=== PATIENT | male | born 1950 | race Caucasian/White ===

== ENCOUNTER 2017-07-15 11:27 | Inpatient (IN) | payer OTHER, MEDICAID, MEDICARE ==
[~2017-07-15] VITALS: Ht 165.1 cm; Wt 68.1 kg
[2017-07-15 11:30] VITALS: BP 146/72; PULSE 72; RESP 18; TEMP 98.9; O2SAT 96
[2017-07-15 12:25] LABS: AUTOMATED NEUTROPHIL # 4.3 TH/MM3 (1.8-7.7); BASOPHIL % 0.4 % (0.0-2.0); EOSINOPHIL # 0.3 TH/MM3 (0-0.4); EOSINOPHIL % 4.9 % (0.0-4.0); HEMATOCRIT 32.7 % (39.0-51.0); LYMPH % 18.8 % (9.0-44.0); LYMPHOCYTE # 1.3 TH/MM3 (1.0-4.8); MEAN CELL VOLUME 88.9 FL (80.0-100.0); MEAN CORPUSCULAR HEMOGLOBIN 29.9 PG (27.0-34.0); MEAN CORPUSCULAR HGB CONC 33.7 % (32.0-36.0); MEAN PLATELET VOLUME 9.9 FL (7.0-11.0); MONO % 11.7 % (0.0-8.0); MONOCYTE # 0.8 TH/MM3 (0-0.9); NEUT % 64.2 % (16.0-70.0); PLATELET COUNT 146 TH/MM3 (150-450); RED BLOOD COUNT 3.68 MIL/MM3 (4.50-5.90); RED CELL DISTRIBUTION WIDTH 15.6 % (11.6-17.2); WHITE BLOOD COUNT 6.8 TH/MM3 (4.0-11.0)
[2017-07-15 13:04] LABS: ALBUMIN 3.2 GM/DL (3.4-5.0); ALT (GPT) 25 U/L (12-78); AST (GOT) 20 U/L (15-37); BICARBONATE 35.4 MEQ/L (21.0-32.0); BLOOD UREA NITROGEN 30 MG/DL (7-18); CALCIUM 7.9 MG/DL (8.5-10.1); CHLORIDE 94 MEQ/L (98-107); CREATININE 5.52 MG/DL (0.60-1.30); GLOMERULAR FILTRATION RATE 10 ML/MIN (>89); GLUCOSE,RANDOM 102 MG/DL (74-106); SODIUM (NA) 135 MEQ/L (136-145)
--- NOTE | 2017-07-15 13:08 | RADRPT ---
EXAM DATE/TIME: 07/15/2017 12:50 [place] COMPARISON: No previous studies available for comparison. INDICATIONS : Altered mental status, confusion and hallucinations for one week. RADIATION DOSE: 56.35 CTDIvol (mGy) MEDICAL HISTORY : Cardiovascular disease. SURGICAL HISTORY : None. ENCOUNTER: Initial ACUITY: 1 day PAIN SCALE: 0/10 LOCATION: Bilateral head TECHNIQUE: Multiple contiguous axial images were obtained of the head. Using automated exposure control and adj ustment of the mA and/or kV according to patient size, radiation dose was kept as low as reasonably a chievable to obtain optimal diagnostic quality images. DICOM format image data is available electro nically for review and comparison. FINDINGS: CEREBRUM: The ventricles are normal for age. No evidence of midline shift, mass lesion, hemorrhage or acute in farction. No extra-axial fluid collections are seen. POSTERIOR FOSSA: The cerebellum and brainstem are intact. The 4th ventricle is midline. The cerebellopontine angle i s unremarkable. EXTRACRANIAL: The visualized portion of the orbits is intact. SKULL: The calvaria is intact. No evidence of skull fracture. CONCLUSION: Normal examination for a patient of this age. Dionte Salinas MD on July 15, 2017 at 13:05 Board Certified Radiologist. This report was verified electronically.
[2017-07-15 13:14] LABS: ALKALINE PHOSPHATASE 263 U/L (45-117); TOTAL BILIRUBIN ADULT 1.2 MG/DL (0.2-1.0); TOTAL PROTEIN 7.1 GM/DL (6.4-8.2)
[2017-07-15] MEDS ORDERED: ASPI81TA16 PO (13:18)
[2017-07-15] MEDS ORDERED: ISOS60TA PO (13:18)
[2017-07-15] MEDS ORDERED: MECL-62 PO (13:18)
[2017-07-15] MEDS ORDERED: CINA30 PO (13:18)
[2017-07-15] MEDS ORDERED: LOSA25TA PO (13:18)
[2017-07-15] MEDS ORDERED: LEVO100T5 PO (13:18)
[2017-07-15] MEDS ORDERED: RANE1000 PO (13:18)
[2017-07-15] MEDS ORDERED: OMEP20TA93 PO (13:18)
[2017-07-15] MEDS ORDERED: ALPR.25 PO (13:18)
[2017-07-15] MEDS ORDERED: SEVEL800 PO (13:18)
[2017-07-15] MEDS ORDERED: EZET10 PO (13:18)
[2017-07-15] MEDS ORDERED: ZOLO50TA PO (13:18)
[2017-07-15] MEDS ORDERED: ROSU40 PO (13:18)
[2017-07-15] MEDS ORDERED: CARV12.5 PO (13:18)
--- NOTE | 2017-07-15 14:07 | PD ---
HPI Chief Complaint: Altered Mental Status Time Seen by Provider: 12:01 Travel History International Travel<30 days: No Contact w/Intl Traveler<30days: No Traveled to known affect area: No History of Present Illness HPI 67-year-old male arrives with family members due to altered mental status. The patient may have dementia however the family is unsure. He has been hallucinating. Insomnia is reported. The patient is agitated late at night and the family is unable to sleep because of it location neuropsychiatric. Severity moderate. Duration at least a couple weeks. PFSH Past Medical History Cardiovascular Problems: Yes Dementia: Yes (father) Dialysis: Yes (MWF Hemodialysis Fistula Rt arm) Renal Failure: Yes Thyroid Disease: Yes (hypo) Triglycerides - High: Yes Influenza Vaccination: No Past Surgical History Coronary Artery Bypass Graft: Yes (quad) Social History Alcohol Use: Yes (on occasion) Tobacco Use: No Substance Use: No Allergies-Medications (Allergen,Severity, Reaction): Coded Allergies: No Known Allergies (Unverified , 07/15/17) Reported Meds & Prescriptions Reported Meds & Active Scripts Active Reported Losartan (Losartan Potassium) 25 Mg Tab 25 Mg PO DAILY Coreg (Carvedilol) 12.5 Mg Tab 12.5 Mg PO BID Isosorbide Mononitrate ER (Isosorbide Mononitrate) 60 Mg Tab 60 Mg PO DAILY Ranexa ER 12 HR (Ranolazine) 1,000 Mg Tab 1,000 Mg PO BID Sensipar (Cinacalcet) 30 Mg Tab 60 Mg PO HS Renvela (Sevelamer Carbonate) 800 Mg Tab 2,400 Mg PO TIDAC Levothyroxine (Levothyroxine Sodium) 100 Mcg Tab 100 Mcg PO DAILY Zetia (Ezetimibe) 10 Mg Tab 10 Mg PO DAILY Crestor (Rosuvastatin Calcium) 40 Mg Tab 40 Mg PO HS Xanax (Alprazolam) 0.25 Mg Tab 0.25-0.5 Mg PO Q12HR PRN Zoloft (Sertraline HCl) 50 Mg Tab 25 Mg PO HS Meclizine (Meclizine HCl) 25 Mg Tab 25 Mg PO TID PRN Aspirin Adult Low Strength (Aspirin) 81 Mg Tabdr 81 Mg PO DAILY Omeprazole 20 Mg Tab 20 Mg PO DAILY Review of Systems Except as stated in HPI: all other systems reviewed are Neg General / Constitutional: No: Fever Physical Exam Narrative GENERAL: 67-year-old male pleasant well-nourished well-developed Vital Signs Date Time Temp Pulse Resp B/P (MAP) Pulse Ox O2 Delivery O2 Flow Rate FiO2 07/15/17 12:19 71 18 98 Room Air 07/15/17 11:30 98.9 72 18 146/72 (96) 96 SKIN: Warm and dry. HEAD: Atraumatic. Normocephalic. EYES: Pupils equal and round. No scleral icterus. No injection or drainage. ENT: No nasal bleeding or discharge. Mucous membranes pink and moist. NECK: Trachea midline. No JVD. CARDIOVASCULAR: Regular rate and rhythm. RESPIRATORY: No accessory muscle use. Clear to auscultation. Breath sounds equal bilaterally. GASTROINTESTINAL: Abdomen soft, non-tender, nondistended. Hepatic and splenic margins not palpable. MUSCULOSKELETAL: Extremities without clubbing, cyanosis, or edema. No obvious deformities. NEUROLOGICAL: Cranial nerves II through XII normal. Patient will extremity is normally. Speech memory mentation normal . PSYCHIATRIC: Appropriate mood and affect; insight and judgment normal. Data Data Last Documented VS Vital Signs Date Time Temp Pulse Resp B/P (MAP) Pulse Ox O2 Delivery O2 Flow Rate FiO2 07/15/17 15:20 81 18 130/84 (99) 98 Room Air 07/15/17 11:30 98.9 Orders Orders Complete Blood Count With Diff (07/15/17 12:01) Comprehensive Metabolic Panel (07/15/17 12:01) Thyroid Stimulating Hormone (07/15/17 12:01) Psych Screen (07/15/17 12:01) Drug Screen, Random Urine (07/15/17 12:01) Ct Brain W/O Iv Contrast(Rout) (07/15/17 ) Electrocardiogram (07/15/17 ) Admit Order (Ed Use Only) (07/15/17 ) Vital Signs (Adult) Q4H (07/15/17 17:47) Labs Laboratory Tests Test 07/15/17 12:12 White Blood Count 6.8 TH/MM3 Red Blood Count 3.68 MIL/MM3 Hemoglobin 11.0 GM/DL Hematocrit 32.7 % Mean Corpuscular Volume 88.9 FL Mean Corpuscular Hemoglobin 29.9 PG Mean Corpuscular Hemoglobin Concent 33.7 % Red Cell Distribution Width 15.6 % Platelet Count 146 TH/MM3 Mean Platelet Volume 9.9 FL Neutrophils (%) (Auto) 64.2 % Lymphocytes (%) (Auto) 18.8 % Monocytes (%) (Auto) 11.7 % Eosinophils (%) (Auto) 4.9 % Basophils (%) (Auto) 0.4 % Neutrophils # (Auto) 4.3 TH/MM3 Lymphocytes # (Auto) 1.3 TH/MM3 Monocytes # (Auto) 0.8 TH/MM3 Eosinophils # (Auto) 0.3 TH/MM3 Basophils # (Auto) 0.0 TH/MM3 CBC Comment DIFF FINAL Differential Comment Blood Urea Nitrogen 30 MG/DL Creatinine 5.52 MG/DL Random Glucose 102 MG/DL Total Protein 7.1 GM/DL Albumin 3.2 GM/DL Calcium Level 7.9 MG/DL Alkaline Phosphatase 263 U/L Aspartate Amino Transf (AST/SGOT) 20 U/L Alanine Aminotransferase (ALT/SGPT) 25 U/L Total Bilirubin 1.2 MG/DL Sodium Level 135 MEQ/L Potassium Level 5.1 MEQ/L Chloride Level 94 MEQ/L Carbon Dioxide Level 35.4 MEQ/L Anion Gap 6 MEQ/L Estimat Glomerular Filtration Rate 10 ML/MIN Thyroid Stimulating Hormone 3rd Gen 0.344 uIU/ML MDM Medical Decision Making Medical Screen Exam Complete: Yes Emergency Medical Condition: Yes Medical Record Reviewed: Yes Differential Diagnosis Dementia, electrolyte imbalance, polypharmacy Narrative Course CBC & BMP Diagram 07/15/17 12:12 Total Protein 7.1, Albumin 3.2 L, Calcium Level 7.9 L, Alkaline Phosphatase 263 H, Aspartate Amino Transf (AST/SGOT) 20, Alanine Aminotransferase (ALT/SGPT) 25 , Total Bilirubin 1.[address] Impressions Head CT 07/15/17 0000 Signed Impressions: Service Date/Time: Saturday, July 15, 2017 12:50 - CONCLUSION: Normal examination for a patient of this age. Dionte Salinas MD Patient is known to have end-stage renal disease and is dialyzed Monday. He was dialyzed yesterday as per normal. Case was discussed with Dr. Segovia psychiatry. The patient is a good candidate for the med psych floor. Request for stat psych screen was ordered and at 5:20 PM the psych screener arrived. We are awaiting disposition. The patient will go to the MedPsych service. EKG was performed and shows a normal sinus rhythm with nonspecific ST changes none of which are concerning for electrolyte abnormality or ischemia or preexcitation. Diagnosis Primary Impression: Agitation Additional Impression: ESRD (end stage renal disease) Admitting Information Admitting Physician Requests: Admit Ignacio Sullivan MD Jul 15, 2017 14:06
[2017-07-15 15:20] VITALS: BP 130/84; PULSE 81; RESP 18; O2SAT 98
[2017-07-15 19:52] VITALS: BP 145/70; PULSE 84; RESP 18; TEMP 98.9; O2SAT 95
[2017-07-15] MEDS ORDERED: ALUMINUM/MAGNESIUM/SIMETH 30 ML CUP PO PRN (20:15)
[2017-07-15] MEDS ORDERED: ACETAMINOPHEN 325 MG TAB PO PRN (20:15)
[2017-07-15] MEDS ORDERED: MAGNESIUM HYDROXIDE SUSP 30 ML CUP PO PRN (20:15)
[2017-07-16 01:00] VITALS: BP 132/82; PULSE 84; RESP 16; TEMP 98; O2SAT 96
[2017-07-16 06:05] VITALS: BP 160/74; PULSE 91; RESP 17; TEMP 98.6; O2SAT 99
[2017-07-16] MEDS ORDERED: MECLIZINE HCL 25 MG TAB PO PRN (08:15)
[2017-07-16] MEDS: ISOSORBIDE MONONITRATE 60 MG CR TAB (IMDUR) PO SCH (08:19)
[2017-07-16] MEDS ORDERED: LEVOTHYROXINE SODIUM 100 MCG TAB PO SCH (08:20)
[2017-07-16] MEDS: LOSARTAN 25 MG TAB PO SCH (08:58)
[2017-07-16] MEDS: CARVEDILOL 12.5 MG TAB PO SCH ×2 (08:58→20:30)
[2017-07-16] MEDS: ASPIRIN EC 81 MG TABEC PO SCH (08:59)
[2017-07-16] MEDS: PANTOPRAZOLE SOD 20 MG DELAYED RELEASE TAB PO SCH (08:59)
[2017-07-16] MEDS: RANOLAZINE 500 MG EXTENDED RELEASE TAB PO SCH ×2 (09:00→20:30)
[2017-07-16 11:12] LABS: AUTOMATED NEUTROPHIL # 4.5 TH/MM3 (1.8-7.7); BASOPHIL % 0.4 % (0.0-2.0); EOSINOPHIL # 0.4 TH/MM3 (0-0.4); HEMATOCRIT 32.6 % (39.0-51.0); HEMOGLOBIN 11.2 GM/DL (13.0-17.0); LYMPHOCYTE # 1.6 TH/MM3 (1.0-4.8); MEAN CELL VOLUME 88.7 FL (80.0-100.0); MEAN CORPUSCULAR HEMOGLOBIN 30.5 PG (27.0-34.0); MEAN CORPUSCULAR HGB CONC 34.3 % (32.0-36.0); MEAN PLATELET VOLUME 10.4 FL (7.0-11.0); MONO % 8.5 % (0.0-8.0); MONOCYTE # 0.6 TH/MM3 (0-0.9); NEUT % 63.1 % (16.0-70.0); PLATELET COUNT 144 TH/MM3 (150-450); RED BLOOD COUNT 3.67 MIL/MM3 (4.50-5.90); RED CELL DISTRIBUTION WIDTH 15.6 % (11.6-17.2); WHITE BLOOD COUNT 7.2 TH/MM3 (4.0-11.0)
--- NOTE | 2017-07-16 11:12 | HHI.HP ---
Provisional Diagnosis Admission Date Jul 15, 2017 at 17:49 [place] I. Brief psychotic disorder Certification of Person's Competence To Provide Express and Informed Consent I have personally examined Cosme Wyatt , a person being served at [facility] on, Jul 16, 2017 10:57. Express and informed consent means consent voluntarily given in writing, by a competent person, after sufficient explanation and disclosure of the subject matter involved to enable the person to make a knowing and willful decision without any element of force, fraud, deceit, duress, or other form of constraint or coercion. This person is 18 years of age or older, is not now known to be incompetent to consent to treatment with a guardian advocate, and does not have a health care surrogate or proxy currently making medical treatment decisions. I have found this person to be one of the following: [xxx] Competent to provide express and informed consent, as defined above, for voluntary admission to this facility and is competent to provide express and informed consent for treatment. He/she has the consistent capacity to make well reasoned, willful, and knowing decisions concerning his or her medical or mental health treatment. The person fully and consistently understands the purpose of the admission for examination/placement and is fully capable of personally exercising all rights [place] Incompetent to provide express and informed consent to voluntary admission, and this is incompetent to provide express and informed consent to treatment. The person must be transferred to involuntary status and a petition for a guardian advocate filed with the Circuit Court. [] Refusing to provide express and informed consent to voluntary admission but is competent to provide express and informed consent for treatment. The person must be discharged or transferred to involuntary status. Form shall be completed within 24 hours of a person's arrival at the receiving facility and filed in the clinical record of each person: 1. Admitted on a voluntary basis 2. Permitted to provide express and informed consent to his/her own treatment 3. Allowed to transfer from involuntary to voluntary status 4. Prior to permitting a person to consent to his or her own treatment after having been previously found incompetent to consent to treatment. History of Present Illness Capacity: Has Capacity HPI Patient is a 67-year-old male comes her voluntarily with family history of increased by . visual hallucinations and paranoia this seems to be more cycling through late afternoon into the evening. Patient is also a dialysis patient. He states she's been compliant with that. Patient gives no significant past psychiatric history this is been going on for the past couple of weeks. He denies alcohol or drug use with this. Patient does denies suicidality with me. Does deny homicidality.. It appears this patient has had family members with fairly early onset dementia. Of interest family members states this is a fairly rapid onset. Patient appears not of the appropriate age group for an onset of a mood disorder. Though the may be an early onset of a dementing type procedure. Will have neurology consult with us also along with the nephrology and the hospitalist Review of Systems Except as stated in HPI: all other systems reviewed are Neg Past Psych History Psychological trauma history Patient denies Violence risk - others (6 mos) Patient somewhat agitated Violence risk - self (6 mos) Patient denies suicidality Substance Abuse History Drugs/Alcohol past 12 months Patient denies Past Family Social History Coded Allergies: No Known Allergies (Unverified , 07/15/17) Reported Medications Losartan (Losartan) 25 Mg Tab, 25 MG PO DAILY for Blood Pressure Management, # 30 TAB 0 Refills 07/15/17 Carvedilol (Coreg) 12.5 Mg Tab, 12.5 MG PO BID, #60 TAB 0 Refills 07/15/17 Isosorbide Mononitrate ER (Isosorbide Mononitrate ER) 60 Mg Tab, 60 MG PO DAILY for Prevent Chest Pain, #30 TAB 0 Refills 07/15/17 Ranolazine ER 12 HR (Ranexa ER 12 HR) 1,000 Mg Tab, 1000 MG PO BID for Chest Pain, #60 TAB 0 Refills 07/15/17 Cinacalcet (Sensipar) 30 Mg Tab, 60 MG PO HS, #30 TAB 0 Refills 07/15/17 Sevelamer Carbonate (Renvela) 800 Mg Tab, 2400 MG PO TIDAC for Control phosphorous levels, #90 TAB 0 Refills 07/15/17 Levothyroxine (Levothyroxine) 100 Mcg Tab, 100 MCG PO DAILY for Thyroid, #30 TAB 0 Refills 07/15/17 Ezetimibe (Zetia) 10 Mg Tab, 10 MG PO DAILY, #30 TAB 0 Refills 07/15/17 Rosuvastatin (Crestor) 40 Mg Tab, 40 MG PO HS for Cholesterol Management, #30 TAB 0 Refills 07/15/17 Alprazolam (Xanax) 0.25 Mg Tab, 0.25-0.5 MG PO Q12HR Y for ANXIETY, TAB 0 Refills 07/15/17 Sertraline (Zoloft) 50 Mg Tab, 25 MG PO HS, #30 TAB 0 Refills 07/15/17 Meclizine (Meclizine) 25 Mg Tab, 25 MG PO TID Y for DIZZINESS, TAB 0 Refills 07/15/[address] (Aspirin Adult Low Strength) 81 Mg Tabdr, 81 MG PO DAILY, TAB 07/15/17 Omeprazole (Omeprazole) 20 Mg Tab, 20 MG PO DAILY, #30 TAB 0 Refills 07/15/17 Current Medications Medications (Trade) Dose Ordered Sig/Isis Route Start Time Stop Time Status Last Admin (Tylenol) 650 mg Q4H PRN PO 07/15/17 20:15 (Milk Of Magnesia Liq) 30 ml DAILY PRN PO 07/15/17 20:15 (Mag-Al Plus Susp Liq) 30 ml Q6H PRN PO 07/15/17 20:15 (Ecotrin Ec) 81 mg DAILY PO 07/16/17 09:00 07/16/17 08:59 (Coreg) 12.5 mg BID PO 07/16/17 09:00 07/16/17 08:58 (Sensipar) 60 mg HS PO 07/16/17 21:00 (Zetia) 10 mg DAILY PO 07/16/17 09:00 (Imdur) 60 mg DAILY@0700 PO 07/16/17 08:19 (Synthroid) 100 mcg DAILY@0600 PO 07/16/17 08:20 07/16/17 08:20 (Cozaar) 25 mg DAILY PO 07/16/17 09:00 07/16/17 08:58 (Antivert) 25 mg TID PRN PO 07/16/17 08:15 (Renvela) 2,400 mg TIDAC PO 07/16/17 12:00 (Protonix) 20 mg DAILY PO 07/16/17 09:00 07/16/17 08:59 (Ranexa) 1,000 mg BID PO 07/16/17 09:00 (Lipitor) 80 mg HS PO 07/16/17 21:00 Family Psych History Past history dementia Social History Patient lives with family Patient's Strengths (min. 2) Patient verbal cooperative supportive family Physical Exam Patient seen screened in ED exam reviewed and agreed with at the present time patient sitting quietly in his room with staff as mentioned above is in no acute distress, is similar sister distress, no complicit abdominal pain. Patient moving all 4 extremities without difficulty no abnormal motor movements noted Vital Signs Vital Signs Date Time Temp Pulse Resp B/P (MAP) Pulse Ox O2 Delivery O2 Flow Rate FiO2 07/16/17 06:05 98.6 91 17 160/74 (102) 99 07/15/17 15:20 Room Air I/O 07/16/17 07/16/17 07/17/17 08:00 16:00 00:00 Intake Total 0 ml 360 ml Balance 0 ml 360 ml Lab Results Test 07/15/17 12:12 White Blood Count 6.8 TH/MM3 Red Blood Count 3.68 MIL/MM3 Hemoglobin 11.0 GM/DL Hematocrit 32.7 % Mean Corpuscular Volume 88.9 FL Mean Corpuscular Hemoglobin 29.9 PG Mean Corpuscular Hemoglobin Concent 33.7 % Red Cell Distribution Width 15.6 % Platelet Count 146 TH/MM3 Mean Platelet Volume 9.9 FL Neutrophils (%) (Auto) 64.2 % Lymphocytes (%) (Auto) 18.8 % Monocytes (%) (Auto) 11.7 % Eosinophils (%) (Auto) 4.9 % Basophils (%) (Auto) 0.4 % Neutrophils # (Auto) 4.3 TH/MM3 Lymphocytes # (Auto) 1.3 TH/MM3 Monocytes # (Auto) 0.8 TH/MM3 Eosinophils # (Auto) 0.3 TH/MM3 Basophils # (Auto) 0.0 TH/MM3 CBC Comment DIFF FINAL Differential Comment Blood Urea Nitrogen 30 MG/DL Creatinine 5.52 MG/DL Random Glucose 102 MG/DL Total Protein 7.1 GM/DL Albumin 3.2 GM/DL Calcium Level 7.9 MG/DL Alkaline Phosphatase 263 U/L Aspartate Amino Transf (AST/SGOT) 20 U/L Alanine Aminotransferase (ALT/SGPT) 25 U/L Total Bilirubin 1.2 MG/DL Sodium Level 135 MEQ/L Potassium Level 5.1 MEQ/L Chloride Level 94 MEQ/L Carbon Dioxide Level 35.4 MEQ/L Anion Gap 6 MEQ/L Estimat Glomerular Filtration Rate 10 ML/MIN Thyroid Stimulating Hormone 3rd Gen 0.344 uIU/ML Mental Status Examination Appearance: Appropriate Consciousness: Alert Orientation: x4 Motor Activity: Normal gait Speech: Pressured, Rapid, Other (strong accept) Language: Adequate (strong accept) Fund of Knowledge: Adequate Attention and Concentration: Other (fair) Memory: Unremarkable (fair) Mood: Anxious, Other (euthymic to somewhat intense labile) Affect: Other (increase range and intensity) Thought Process & Associations: Intact Thought Content: Hallucinations Hallucination Type: Auditory, Visual Delusion Type: None Suicidal Ideation: No Suicidal Plan: No Suicidal Intention: No Homicidal Ideation: No Homicidal Plan: No Homicidal Intention: No Insight: Poor Judgment: Poor Assessment & Plan Problem List: (1) Brief psychotic disorder ICD Codes: F23 - Brief psychotic disorder Status: Acute Assessment & Plan Estimated LOS: days patient appears somewhat manic/psychotic also somewhat confused though rapid pressured speech. The needed further assess. We will neurology consult was also along with nephrology of hospitalist Discharge Planning Probable return home to family Request HC Surrog/Guard Advoc?: No Juan Segovia MD Jul 16, 2017 11:12
[2017-07-16 11:49] LABS: ALBUMIN 3.3 GM/DL (3.4-5.0); ALKALINE PHOSPHATASE 235 U/L (45-117); ALT (GPT) 20 U/L (12-78); AST (GOT) 14 U/L (15-37); BICARBONATE 32.6 MEQ/L (21.0-32.0); BLOOD UREA NITROGEN 48 MG/DL (7-18); CALCIUM 8.8 MG/DL (8.5-10.1); CHLORIDE 94 MEQ/L (98-107); CHOLESTEROL 146 MG/DL (120-200); CHOLESTEROL/ HDL RATIO 2.83 RATIO; CREATININE 7.62 MG/DL (0.60-1.30); FREE T4 1.04 NG/DL (0.76-1.46); GLOMERULAR FILTRATION RATE 7 ML/MIN (>89); GLUCOSE,RANDOM 85 MG/DL (74-106); HDL CHOLESTEROL 51.5 MG/DL (40.0-60.0); LDL CHOLESTEROL 81 MG/DL (0-99); SODIUM (NA) 135 MEQ/L (136-145); TOTAL BILIRUBIN ADULT 1.2 MG/DL (0.2-1.0); TRIGLYCERIDES 66 MG/DL (42-150)
[2017-07-16] MEDS: SEVELAMER CARBONATE 800 MG TAB PO SCH ×2 (12:00→16:44)
[2017-07-16 13:50] LABS: HEMOGLOBIN A1C 5.7 % (4.3-6.0)
--- NOTE | 2017-07-16 14:37 | EKG ---
Date Performed: 07/15/2017 Time Performed: 17:59:01 PTAGE: 67 years EKG: Sinus rhythm NONSPECIFIC ST & T-WAVE ABNORMALITY BORDERLINE ECG NO PREVIOUS TRACING DOCTOR: Jeremias Durbin Interpretating Date/Time 07/16/2017 14:34:44
--- NOTE | 2017-07-16 14:47 | PD.CONS ---
HPI Service [facility] Hospitalists Consult Requested By Psychiatric services Reason for Consult Medical management Primary Care Physician Dionte Cassidy MD Diagnoses: History of Present Illness Written by Argelia Marcial, acting as scribe for Dr. Bowling on 07/16/17 at 14: 34. This is a 67-year-old male with past medical history significant for coronary artery disease status post previous CABG, hypertension, end-stage renal disease on hemodialysis Monday, dyslipidemia and hypothyroidism who presents to [facility] ED brought in by his family members for altered mental status and has since been admitted to inpatient psychiatric unit. Hospitalist services have been consulted for medical management. Patient seen and examined. Patient states he feels well and denies any complaints. He denies any fever chills. Denies any dizziness, lightheadedness, headache, shortness of breath, chest pain, nausea, vomiting, abdominal pain, dysuria, diarrhea or constipation. Nephrology service has already been consulted to resume patient's dialysis treatments. Neurology has been consulted as well by the primary team. Review of Systems Except as stated in HPI: all other systems reviewed are Neg Past Family Social History Allergies: Coded Allergies: No Known Allergies (Unverified , 07/15/17) Past Medical History ESRD on HD MWF Hypothyroidism Hypertriglyceridemia CAD s/p CABG HTN GERD Past Surgical History CABG AV fistual RUE Reported Medications Losartan (Losartan Potassium) 25 Mg Tab 25 Mg PO DAILY Coreg (Carvedilol) 12.5 Mg Tab 12.5 Mg PO BID Isosorbide Mononitrate ER (Isosorbide Mononitrate) 60 Mg Tab 60 Mg PO DAILY Ranexa ER 12 HR (Ranolazine) 1,000 Mg Tab 1,000 Mg PO BID Sensipar (Cinacalcet) 30 Mg Tab 60 Mg PO HS Renvela (Sevelamer Carbonate) 800 Mg Tab 2,400 Mg PO TIDAC Levothyroxine (Levothyroxine Sodium) 100 Mcg Tab 100 Mcg PO DAILY Zetia (Ezetimibe) 10 Mg Tab 10 Mg PO DAILY Crestor (Rosuvastatin Calcium) 40 Mg Tab 40 Mg PO HS Xanax (Alprazolam) 0.25 Mg Tab 0.25-0.5 Mg PO Q12HR PRN Zoloft (Sertraline HCl) 50 Mg Tab 25 Mg PO HS Meclizine (Meclizine HCl) 25 Mg Tab 25 Mg PO TID PRN Aspirin Adult Low Strength (Aspirin) 81 Mg Tabdr 81 Mg PO DAILY Omeprazole 20 Mg Tab 20 Mg PO DAILY Active Ordered Medications Current Medications Medications (Trade) Dose Ordered Sig/Isis Route Start Time Stop Time Status Last Admin (Tylenol) 650 mg Q4H PRN PO 07/15/17 20:15 (Milk Of Magnesia Liq) 30 ml DAILY PRN PO 07/15/17 20:15 (Mag-Al Plus Susp Liq) 30 ml Q6H PRN PO 07/15/17 20:15 (Ecotrin Ec) 81 mg DAILY PO 07/16/17 09:00 07/16/17 08:59 (Coreg) 12.5 mg BID PO 07/16/17 09:00 07/16/17 08:58 (Sensipar) 60 mg HS PO 07/16/17 21:00 (Zetia) 10 mg DAILY PO 07/16/17 09:00 (Imdur) 60 mg DAILY@0700 PO 07/16/17 08:19 (Synthroid) 100 mcg DAILY@0600 PO 07/16/17 08:20 07/16/17 08:20 (Cozaar) 25 mg DAILY PO 07/16/17 09:00 07/16/17 08:58 (Antivert) 25 mg TID PRN PO 07/16/17 08:15 (Renvela) 2,400 mg TIDAC PO 07/16/17 12:00 (Protonix) 20 mg DAILY PO 07/16/17 09:00 07/16/17 08:59 (Ranexa) 1,000 mg BID PO 07/16/17 09:00 (Lipitor) 80 mg HS PO 07/16/17 21:00 (Atarax) 50 mg Q6H PRN PO 07/16/17 11:00 Family History Father, dementia Social History He denies any tobacco use. Reports occasional alcohol use. Denies any illicit drug use. Physical Exam Vital Signs Vital Signs Date Time Temp Pulse Resp B/P (MAP) Pulse Ox O2 Delivery O2 Flow Rate FiO2 07/16/17 06:05 98.6 91 17 160/74 (102) 99 07/16/17 01:00 98.0 84 16 132/82 (99) 96 07/15/17 19:52 98.9 84 18 145/70 (95) 95 07/15/17 15:20 81 18 130/84 (99) 98 Room Air Physical Exam GENERAL: This is a well-nourished, well-developed elderly male patient , in no apparent distress. Awake and alert. Appears comfortable. SKIN: No rashes, ecchymoses or lesions. Cool and dry. Well-healed midline surgical sternal scar. HEAD: Atraumatic. Normocephalic. No temporal or scalp tenderness. EYES: Pupils equal round and reactive. Extraocular motions intact. No scleral icterus. No injection or drainage. ENT: Nose without bleeding or purulent drainage. Throat without erythema, tonsillar hypertrophy or exudate. Uvula midline. Airway patent. NECK: Trachea midline. No JVD or lymphadenopathy. Supple, nontender, no meningeal signs. CARDIOVASCULAR: Regular rate and rhythm without murmurs, gallops, or rubs. RESPIRATORY: Clear to auscultation. Breath sounds equal bilaterally. No wheezes , rales, or rhonchi. GASTROINTESTINAL: Abdomen soft, non-tender, nondistended. No hepato-splenomegaly , or palpable masses. No guarding. MUSCULOSKELETAL: Extremities without clubbing, cyanosis, or edema. No joint tenderness, effusion, or edema noted. No calf tenderness. RUE fistula. NEUROLOGICAL: Awake and alert. Cranial nerves II through XII grossly intact. Motor and sensory grossly within normal limits. Five out of 5 muscle strength in all muscle groups. Normal speech. Laboratory Laboratory Tests Test 07/16/17 09:45 White Blood Count 7.2 Red Blood Count 3.67 Hemoglobin 11.2 Hematocrit 32.6 Mean Corpuscular Volume 88.7 Mean Corpuscular Hemoglobin 30.5 Mean Corpuscular Hemoglobin Concent 34.3 Red Cell Distribution Width 15.6 Platelet Count 144 Mean Platelet Volume 10.4 Neutrophils (%) (Auto) 63.1 Lymphocytes (%) (Auto) 23.0 Monocytes (%) (Auto) 8.5 Eosinophils (%) (Auto) 5.0 Basophils (%) (Auto) 0.4 Neutrophils # (Auto) 4.5 Lymphocytes # (Auto) 1.6 Monocytes # (Auto) 0.6 Eosinophils # (Auto) 0.4 Basophils # (Auto) 0.0 CBC Comment DIFF FINAL Differential Comment Blood Urea Nitrogen 48 Creatinine 7.62 Random Glucose 85 Total Protein 7.0 Albumin 3.3 Calcium Level 8.8 Alkaline Phosphatase 235 Aspartate Amino Transf (AST/SGOT) 14 Alanine Aminotransferase (ALT/SGPT) 20 Total Bilirubin 1.2 Sodium Level 135 Potassium Level 5.2 Chloride Level 94 Carbon Dioxide Level 32.6 Anion Gap 8 Estimat Glomerular Filtration Rate 7 Triglycerides Level 66 Cholesterol Level 146 LDL Cholesterol 81 HDL Cholesterol 51.5 Cholesterol/HDL Ratio 2.83 Free Thyroxine 1.04 Thyroid Stimulating Hormone 3rd Gen 0.261 Result Diagram: 07/16/17 0945 07/16/17 0945 Imaging Last Impressions Head CT 07/15/17 0000 Signed Impressions: Service Date/Time: Saturday, July 15, 2017 12:50 - CONCLUSION: Normal examination for a patient of this age. Dionte Salinas MD Assessment and Plan Assessment and Plan 67-year-old male with past medical history significant for coronary artery disease status post previous CABG, hypertension, end-stage renal disease on hemodialysis Monday, dyslipidemia and hypothyroidism who presents to [facility] ED brought in by his family members for altered mental status and has since been admitted to inpatient psychiatric unit. Per psychiatry note, patient has been having visual hallucinations and paranoia seems to be worse in the late afternoon and evening per family reports. Hospitalist services have been consulted for medical management. //Psychosis -Management per psychiatric team -Neurology consulted by primary team //CAD s/p CABG //HTN -Patient has no cardiac complaints at present -Resume home dose of Coreg 12.5 mg twice daily, lisinopril 25 mg daily, Imdur 60 mg daily and Ranexa 1000mg twice daily -ASA 81mg daily -Monitor BP and adjust treatment accordingly //ESRD on HD MWF -Nephrology consulted by primary team -Resume home dose of Sensipar and Renvela -Obtain phosphorus level //Hyperkalemia -Management per nephrology //Hypertriglyceridemia -Resume home dose of Zetia 10 mg daily and Lipitor 80 mg daily //Hypothyroidism -TSH 0.261 -Patient currently on levothyroxine 100 mcg daily. Will decrease dose to 75 mcg daily. -Patient will need to follow-up with PCP as an outpatient to have TSH level rechecked in 6-8 weeks. //Anemia, normochromic, normocytic -mild -Suspect anemia of chronic disease -Epogen per nephrology //GERD -PPI //DVT prophylaxis -Patient is ambulatory Thank you very kindly for this consultation. Will follow patient along with you. Discussed Condition With Patient This note was transcribed by citlaly Marcial. I, Dr. Sacha Bowling personally performed the history, physical exam, and medical decision making; and confirmed the accuracy of the information in the transcribed note. Authenticated by Dr. Sacha Bowling on 07/18/17 at 05:57. Argelia Marcial Jul 16, 2017 14:47 Sacha Bowling MD Jul 18, 2017 05:57
[2017-07-16 15:38] LABS: PHOSPHORUS 3.7 MG/DL (2.5-4.9)
[2017-07-16] MEDS ORDERED: SODIUM CHLOR 0.9% 1000 ML INJ 1,000 ML OTHER PRN ×2 (17:20)
[2017-07-16] MEDS ORDERED: SODIUM CHLOR 0.9% 1000 ML INJ 1,000 ML IV PRN (17:20)
--- NOTE | 2017-07-16 17:20 | PD.CONS ---
HPI Service Nephrology Consult Requested By Dr. Segovia Reason for Consult End-stage renal disease Primary Care Physician Dionte Cassidy MD History of Present Illness Patient is a 67-year-old male with history of end-stage renal disease on hemodialysis via right AV fistula on Monday, follows with Dr. Pollock, he has been admitted with altered mental status, confusion and psychosis, patient is feeling better now he states that he has been on dialysis since 2009, denies any chest pain or shortness of breath this last dialysis was on Monday. Review of Systems Constitutional: COMPLAINS OF: Fatigue Endocrine: DENIES: Heat/cold intolerance, Polydipsia, Polyuria, Polyphagia Eyes: DENIES: Blurred vision, Diplopia, Eye inflammation, Eye pain, Vision loss , Photosensitivity, Double Vision Ears, nose, mouth, throat: DENIES: Tinnitus, Hearing loss, Vertigo, Nasal discharge, Oral lesions, Throat pain, Hoarseness, Ear Pain, Running Nose, Epistaxis, Sinus Pain, Toothache, Odynophagia Respiratory: DENIES: Apneas, Cough, Snoring, Wheezing, Hemoptysis, Sputum production, Shortness of breath Cardiovascular: DENIES: Chest pain, Palpitations, Syncope, Dyspnea on Exertion , PND, Lower Extremity Edema, Orthopnea, Claudication Musculoskeletal: DENIES: Joint pain, Muscle aches, Stiffness, Joint Swelling, Back pain, Neck pain Psychiatric: COMPLAINS OF: Anxiety, Confusion, Mood changes Past Family Social History Allergies: Coded Allergies: No Known Allergies (Unverified , 07/15/17) Past Medical History ESRD on HD MWF Hypothyroidism Hypertriglyceridemia CAD s/p CABG HTN GERD Past Surgical History CABG AV fistual RUE Reported Medications Reported Meds & Active Scripts Active Reported Losartan (Losartan Potassium) 25 Mg Tab 25 Mg PO DAILY Coreg (Carvedilol) 12.5 Mg Tab 12.5 Mg PO BID Isosorbide Mononitrate ER (Isosorbide Mononitrate) 60 Mg Tab 60 Mg PO DAILY Ranexa ER 12 HR (Ranolazine) 1,000 Mg Tab 1,000 Mg PO BID Sensipar (Cinacalcet) 30 Mg Tab 60 Mg PO HS Renvela (Sevelamer Carbonate) 800 Mg Tab 2,400 Mg PO TIDAC Levothyroxine (Levothyroxine Sodium) 100 Mcg Tab 100 Mcg PO DAILY Zetia (Ezetimibe) 10 Mg Tab 10 Mg PO DAILY Crestor (Rosuvastatin Calcium) 40 Mg Tab 40 Mg PO HS Xanax (Alprazolam) 0.25 Mg Tab 0.25-0.5 Mg PO Q12HR PRN Zoloft (Sertraline HCl) 50 Mg Tab 25 Mg PO HS Meclizine (Meclizine HCl) 25 Mg Tab 25 Mg PO TID PRN Aspirin Adult Low Strength (Aspirin) 81 Mg Tabdr 81 Mg PO DAILY Omeprazole 20 Mg Tab 20 Mg PO DAILY Active Ordered Medications Current Medications Medications (Trade) Dose Ordered Sig/Isis Route Start Time Stop Time Status Last Admin (Tylenol) 650 mg Q4H PRN PO 07/15/17 20:15 (Milk Of Magnesia Liq) 30 ml DAILY PRN PO 07/15/17 20:15 (Mag-Al Plus Susp Liq) 30 ml Q6H PRN PO 07/15/17 20:15 (Ecotrin Ec) 81 mg DAILY PO 07/16/17 09:00 07/16/17 08:59 (Coreg) 12.5 mg BID PO 07/16/17 09:00 07/16/17 08:58 (Sensipar) 60 mg HS PO 07/16/17 21:00 (Zetia) 10 mg DAILY PO 07/16/17 09:00 (Imdur) 60 mg DAILY@0700 PO 07/16/17 08:19 (Cozaar) 25 mg DAILY PO 07/16/17 09:00 07/16/17 08:58 (Antivert) 25 mg TID PRN PO 07/16/17 08:15 (Renvela) 2,400 mg TIDAC PO 07/16/17 12:00 (Protonix) 20 mg DAILY PO 07/16/17 09:00 07/16/17 08:59 (Ranexa) 1,000 mg BID PO 07/16/17 09:00 (Lipitor) 80 mg HS PO 07/16/17 21:00 (Atarax) 50 mg Q6H PRN PO 07/16/17 11:00 (Synthroid) 75 mcg DAILY@0600 PO 07/17/17 06:00 Family History History of dementia and family Social History Denies smoking drink alcohol occasionally Physical Exam Vital Signs Vital Signs Date Time Temp Pulse Resp B/P (MAP) Pulse Ox O2 Delivery O2 Flow Rate FiO2 07/16/17 06:05 98.6 91 17 160/74 (102) 99 07/16/17 01:00 98.0 84 16 132/82 (99) 96 07/15/17 19:52 98.9 84 18 145/70 (95) 95 Physical Exam GENERAL: Well-nourished, well-developed patient. SKIN: Warm and dry. HEAD: Normocephalic. EYES: No scleral icterus. No injection or drainage. NECK: Supple, trachea midline. No JVD or lymphadenopathy. CARDIOVASCULAR: Regular rate and rhythm without murmurs, gallops, or rubs. RESPIRATORY: Breath sounds equal bilaterally. No accessory muscle use. GASTROINTESTINAL: Abdomen soft, non-tender, nondistended. EXTREMITIES: No cyanosis, or edema. Right arm AV fistula NEUROLOGICAL: Awake, alert, and oriented x 3. Non-focal. Laboratory Laboratory Tests Test 07/16/17 09:45 White Blood Count 7.2 Red Blood Count 3.67 Hemoglobin 11.2 Hematocrit 32.6 Mean Corpuscular Volume 88.7 Mean Corpuscular Hemoglobin 30.5 Mean Corpuscular Hemoglobin Concent 34.3 Red Cell Distribution Width 15.6 Platelet Count 144 Mean Platelet Volume 10.4 Neutrophils (%) (Auto) 63.1 Lymphocytes (%) (Auto) 23.0 Monocytes (%) (Auto) 8.5 Eosinophils (%) (Auto) 5.0 Basophils (%) (Auto) 0.4 Neutrophils # (Auto) 4.5 Lymphocytes # (Auto) 1.6 Monocytes # (Auto) 0.6 Eosinophils # (Auto) 0.4 Basophils # (Auto) 0.0 CBC Comment DIFF FINAL Differential Comment Blood Urea Nitrogen 48 Creatinine 7.62 Random Glucose 85 Total Protein 7.0 Albumin 3.3 Calcium Level 8.8 Phosphorus Level 3.7 Alkaline Phosphatase 235 Aspartate Amino Transf (AST/SGOT) 14 Alanine Aminotransferase (ALT/SGPT) 20 Total Bilirubin 1.2 Sodium Level 135 Potassium Level 5.2 Chloride Level 94 Carbon Dioxide Level 32.6 Anion Gap 8 Estimat Glomerular Filtration Rate 7 Hemoglobin A1c 5.7 Triglycerides Level 66 Cholesterol Level 146 LDL Cholesterol 81 HDL Cholesterol 51.5 Cholesterol/HDL Ratio 2.83 25-Hydroxy Vitamin D Total 51.6 Free Thyroxine 1.04 Thyroid Stimulating Hormone 3rd Gen 0.261 Result Diagram: 07/16/17 0945 07/16/17 0945 Assessment and Plan Problem List: (1) ESRD (end stage renal disease) ICD Codes: N18.6 - End stage renal disease Status: Acute Plan: Patient notes this on Monday, Monday and Monday Dialysis orders written Continue to monitor Resume outpatient medication he is on Sensipar and Renvela (2) Hyperkalemia ICD Codes: E87.5 - Hyperkalemia Plan: Potassium 5.2 he is supposed to get his dialysis in the morning (3) Hypertension ICD Codes: I10 - Essential (primary) hypertension Plan: Continue to monitor (4) Brief psychotic disorder ICD Codes: F23 - Brief psychotic disorder Status: Acute Plan: Psychiatry following Problem Qualifiers (1) Hypertension: Qualified Codes: I10 - Essential (primary) hypertension Joshua Hernadez MD Jul 16, 2017 17:20
[2017-07-16] MEDS: EZETIMIBE 10 MG TAB PO SCH (17:22)
[2017-07-16] MEDS ORDERED: HEPARIN SODIUM - IV 10,000 UNITS/10 ML VIAL IV FLUSH PRN (17:30)
[2017-07-16] MEDS ORDERED: SODIUM CHLORIDE 0.9% FLUSH 10 ML FLUSH IV FLUSH PRN (17:30)
[2017-07-16] MEDS ORDERED: diphenhydrAMINE HCL 25 MG CAP PO PRN (17:30)
[2017-07-16] MEDS ORDERED: MANNITOL 12.5 GM/50 ML VIAL IV PRN (17:30)
[2017-07-16] MEDS ORDERED: GELATIN 12 MM/7 MM FOAM TOP PRN (17:30)
[2017-07-16] MEDS ORDERED: cloNIDine HCL 0.1 MG TAB PO PRN (17:30)
[2017-07-16] MEDS ORDERED: ONDANSETRON HCL 4 MG/2 ML VIAL IV PUSH PRN (17:30)
[2017-07-16] MEDS ORDERED: ACETAMINOPHEN 325 MG TAB PO PRN (17:30)
[2017-07-16] MEDS ORDERED: NITROGLYCERIN 0.4 MG SL 25 TABS/BTL SL PRN (17:30)
[2017-07-16] MEDS ORDERED: ALBUMIN 25% INJ 100 ML IV PRN (17:30)
[2017-07-16 18:16] VITALS: BP 156/69; PULSE 78; RESP 16; TEMP 98.2; O2SAT 98
[2017-07-16 19:30] VITALS: BP 142/70; PULSE 80; RESP 16; TEMP 98; O2SAT 96
[2017-07-16] MEDS: ATORVASTATIN 80 MG TAB PO SCH (20:30)
[2017-07-16] MEDS: CINACALCET HYDROCHLORIDE 30 MG TAB PO SCH (20:30)
[2017-07-16 23:12] VITALS: BP 132/68; PULSE 80; RESP 16; TEMP 98; O2SAT 96
[2017-07-17] MEDS: LEVOTHYROXINE SODIUM 75 MCG TAB PO SCH ×2 (05:22→06:00)
[2017-07-17] MEDS: SEVELAMER CARBONATE 800 MG TAB PO SCH ×3 (06:20→17:00)
[2017-07-17] MEDS: ISOSORBIDE MONONITRATE 60 MG CR TAB (IMDUR) PO SCH (06:20)
[2017-07-17 06:39] VITALS: BP 150/72; PULSE 81; RESP 18; TEMP 97.9; O2SAT 98
[2017-07-17] MEDS: PANTOPRAZOLE SOD 20 MG DELAYED RELEASE TAB PO SCH (09:13)
[2017-07-17] MEDS: CARVEDILOL 12.5 MG TAB PO SCH ×2 (09:13→21:26)
[2017-07-17] MEDS: RANOLAZINE 500 MG EXTENDED RELEASE TAB PO SCH ×2 (09:13→21:53)
[2017-07-17] MEDS: ASPIRIN EC 81 MG TABEC PO SCH (09:13)
[2017-07-17] MEDS: LOSARTAN 25 MG TAB PO SCH (09:13)
[2017-07-17] MEDS: EZETIMIBE 10 MG TAB PO SCH (09:13)
--- NOTE | 2017-07-17 10:31 | HHI.NPPN ---
Subjective History of Present Illness 67 year old male with ESRD, Mood disorder Objective Data Data 07/17/17 07/18/17 19:00 07:00 Intake Total 360 ml Balance 360 ml Intake Oral 360 ml Vital Signs Date Time Temp Pulse Resp B/P (MAP) Pulse Ox O2 Delivery O2 Flow Rate FiO2 07/17/17 06:39 97.9 81 18 150/72 (98) 98 07/16/17 23:12 98.0 80 16 132/68 (89) 96 07/16/17 19:30 98.0 80 16 142/70 (94) 96 07/16/17 18:16 98.2 78 16 156/69 (98) 98 -: 07/16/17 0945 07/16/17 0945 Physical Exam General Appearance: Well Developed, Well Nourished Neck Neck Exam: Neck Supple Pulmonary Resp Exam: Decreased Bases Cardiology CV Exam: Regular, Murmur Gastrointestinal/Abdomen GI Exam: Soft, Non-Tender, Bowel Sounds Present Extremeties Extremities Exam: No Edema Assessment/Plan Problem List: (1) ESRD (end stage renal disease) ICD Codes: N18.6 - End stage renal disease Status: Acute Plan: Patient notes this on Monday, Monday and Monday Dialysis seen during treatment UF 3 L Continue to monitor on outpatient medication he is on Sensipar and Renvela (2) Hyperkalemia ICD Codes: E87.5 - Hyperkalemia Plan: Potassium 5.2 he is supposed to get his dialysis in the morning (3) Hypertension ICD Codes: I10 - Essential (primary) hypertension Plan: Continue to monitor (4) Brief psychotic disorder ICD Codes: F23 - Brief psychotic disorder Status: Acute Plan: Psychiatry following Problem Qualifiers (1) Hypertension: Qualified Codes: I10 - Essential (primary) hypertension Joshua Hernadez MD Jul 17, 2017 10:31
[2017-07-17 12:34] LABS: HEPATITIS A AB IGM NEGATIVE (NEGATIVE); HEPATITIS B CORE AB IGM NEGATIVE (NEGATIVE); HEPATITIS B SURFACE ANTIGEN NEGATIVE (NEGATIVE); HEPATITIS C AB IgG NEGATIVE (NEGATIVE)
--- NOTE | 2017-07-17 15:15 | HHI.PYPN ---
Subjective Remarks Reviewed EMR and discussed patient with Mike MASCORRO. Assessed patient in his room, while he was sitting in a chair. Patient recently returned from dialysis. He presents as pleasant, cooperative, and appropriate with questioning at this time. Denies SI, HI, delusions, hallucinations. He also denies having had the hallucinations which brought him here originally. When asked why he was brought in, patient states "my thought I was losing my mind". However, patient unable to give details as to why the is saying that. He denies having any complaints at this time, and states that he "feels good". When asked how he slept last night he replies "good". However, upon review of documentation nurse reported that he was restless, had sleep disturbance, and only slept for 4 hours. Additionally, the mine shifter nurse documented patient had some behaviors where he was banging on the art and the windows and acting bizarre and confused. Patient seems to have poor insight and short-term memory difficulty. Spoke with patient's , Mila, who advised that patient had been confused for approximately 2-2-1/2 weeks getting increasingly worse. She also reports that his confusion increased at night. She stated that this happened one other time previously when he was placed on medication for shingles in 2016. At that time , she indicates that he "had an encounter with God". She states that after being admitted to the hospital it was decided that the medication had caused his psychosis and he was started on dialysis at that time with immediate improvement. She does state that he was started on losartan and carvedilol about 4 weeks ago. She also expresses concern that he was taking laxatives every day for "awhile now". She denies that he has any previous suicidal attempts, and he has not become violent with family members. She also stated that she has witnessed him "talking to people who are in [place], family, and also some that are ". Mental Status Examination Appearance: Appropriate Consciousness: Alert Orientation: x4 Motor Activity: Normal gait Speech: Pressured, Rapid, Other (strong accent) Language: Adequate (strong accent) Fund of Knowledge: Adequate Attention and Concentration: Adequate Memory: Unremarkable (vague), Remote (intact) Mood: Anxious, Other (anxious for discharge) Affect: Euthymic Thought Process & Associations: Intact Thought Content: Appropriate Delusion Type: None Suicidal Ideation: No Suicidal Plan: No Suicidal Intention: No Homicidal Ideation: No Homicidal Plan: No Homicidal Intention: No Insight: Poor Judgment: Poor Results Labs Test 07/17/17 06:56 Hepatitis A IgM Antibody NEGATIVE Hepatitis B Surface Antigen NEGATIVE Hepatitis B Core IgM Antibody NEGATIVE Hepatitis C Antibody NEGATIVE Vitals/IOs Vital Signs Date Time Temp Pulse Resp B/P (MAP) Pulse Ox O2 Delivery O2 Flow Rate FiO2 07/17/17 06:39 97.9 81 18 150/72 (98) 98 07/15/17 15:20 Room Air Intake and Output 07/17/17 07/17/17 07/18/17 08:00 16:00 00:00 Intake Total 360 ml 240 ml Balance 360 ml 240 ml Assessment & Plan Problem List: (1) Brief psychotic disorder ICD Codes: F23 - Brief psychotic disorder Status: Acute Assessment & Plan Estimated LOS: days will continue to monitor for confusion and bizarre behavior at nighttime. Justification for Cont. Inpt. At this time patient would decompensate if moved to a lower level of care. Discharge Planning Pending psychiatric stabilization. Request HC Surrog/Guard Advoc?: No Chanel Seo Jul 17, 2017 15:15
[2017-07-17 18:06] LABS: FREE T4 1.06 NG/DL (0.76-1.46)
[2017-07-17 18:11] VITALS: BP 119/58; PULSE 80; RESP 18; TEMP 98.8; O2SAT 98
[2017-07-17 20:38] VITALS: BP 130/78; PULSE 80; RESP 16
--- NOTE | 2017-07-17 21:22 | RADRPT ---
EXAM DATE/TIME: 07/17/2017 21:00 [place] COMPARISON: No previous studies available for comparison. INDICATIONS : Right elbow deformity around dialysis port/fistula. MEDICAL HISTORY : Cardiovascular disease. SURGICAL HISTORY : None. ENCOUNTER: Initial ACUITY: 1 day PAIN SCORE: 0/10 LOCATION: Right elbow FINDINGS: The elbow appears intact without definite fracture or joint effusion. There is some ossification at t he triceps tendon insertion. There is dense atherosclerotic vascular calcification present throughout . Stainless steel embolization coils are present in the volar lateral soft tissues presumably associa catracho with embolization of an on one to venous outflow pathway. There is some radiodense material along the medial skin surface of the proximal volar forearm. There is prominent serpiginous enlargement of the soft tissues in the biceps region consistent with hypertrophied fistula vein outflow. CONCLUSION: No definite acute bony findings. Juan Sarkar MD on July 17, 2017 at 21:18 Board Certified Radiologist. This report was verified electronically.
--- NOTE | 2017-07-17 21:24 | MB ---
cc: [facility] DATE OF CONSULTATION 07/17/2017 REASON FOR CONSULTATION Possible dementia. HISTORY OF PRESENT ILLNESS The patient is a 67-year-old man who was brought in to the psychiatry service by his family with increasing visual hallucinations as well as paranoid ideation possible dementia. He has no past psychiatric history. He used to drink alcohol many years ago but states he has not had any alcoholic drink for several years. PAST MEDICAL HISTORY He has: 1. A history of renal failure. He is on dialysis. 2. Hypothyroidism. 3. History of coronary artery disease, previous coronary artery bypass graft. 4. Hypertension. 5. End-stage renal disease. 6. Dyslipidemia. 7. A-V fistula. MEDICATIONS Current medications are: 1. Synthroid. 2. Sensipar. 3. Lipitor. 4. Heparin with dialysis. 5. Zofran p.r.n. 6. Tylenol p.r.n. 7. Benadryl p.r.n. 8. Nitrostat. 9. Catapres p.r.n. 10. Gelatin. 11. Hydroxyzine. 12. Aspirin 81 mg daily. 13. Carvedilol 12.5 milligrams daily. 14. Zetia. 15. Cozaar. 16. Protonix. 17. Ranexa. 18. Antevert. 19. Imdur. 20. Milk of Magnesia. NEUROLOGIC EXAMINATION VITAL SIGNS: Blood pressure 150/72, pulse is 81, respiratory rate is 18, temperature 97.9 degrees. Higher cortical functions, he is alert, oriented x3. He recalls 0/3 objects in 3 minutes. His remote memory appears to be intact. He can name objects normally. Speech is fluent with no paraphasic errors. Calculations are normal. There is no visual spatial neglect. Cranial nerves are intact. Motor exam 5/5 strength of all groups in both upper and lower extremities. Reflexes are symmetric. IMAGING CT of the brain is within normal limits. LABORATORY DATA The white count is 7200, hemoglobin 11.2 hematocrit 32.6%, platelets 144,000. Sodium is 135, potassium 5.2, chloride 94, CO2 is 32.6. The BUN is 48, creatinine 7.62, GFR is 7. Glucose is 85, hemoglobin A1c 5.7, AST 14, ALT is 20. Cholesterol 146, LDL 81. TSH 0.26. IMPRESSION The patient has evidence of a probable dementia which may be a degenerative dementia. RECOMMENDATIONS Recommend obtaining an MRI of the brain as well as an EEG for further evaluation. Additional labs including TSH, free T4, T3, MERCEDES, B12 level, serum cryptococcal antigen. According to the family and according to the chart this has been fairly rapidly progressive. If no other etiology is identified consider lumbar puncture to rule out chronic infectious process such as cryptococcal meningitis, etc. MD RAMYA Deshpande/KK /4:21 PM /8:58 PM
[2017-07-17] MEDS: CINACALCET HYDROCHLORIDE 30 MG TAB PO SCH (21:26)
[2017-07-17] MEDS: ATORVASTATIN 80 MG TAB PO SCH (21:26)
--- NOTE | 2017-07-17 22:12 | RADRPT ---
EXAM DATE/TIME: 07/17/2017 21:59 [facility] COMPARISON: CT BRAIN W/O CONTRAST, July 15, 2017, 12:50. INDICATIONS : Trauma; fall. RADIATION DOSE: 37.13 CTDIvol (mGy) MEDICAL HISTORY : Dementia. Cardiovascular disease SURGICAL HISTORY : None. ENCOUNTER: Initial ACUITY: 1 day PAIN SCALE: 5/10 LOCATION: cranial TECHNIQUE: Multiple contiguous axial images were obtained of the head. Using automated exposure control and adj ustment of the mA and/or kV according to patient size, radiation dose was kept as low as reasonably a chievable to obtain optimal diagnostic quality images. DICOM format image data is available electro nically for review and comparison. FINDINGS: CEREBRUM: The ventricles are normal for age. No evidence of midline shift, mass lesion, hemorrhage or acute in farction. No extra-axial fluid collections are seen. POSTERIOR FOSSA: The cerebellum and brainstem are intact. The 4th ventricle is midline. The cerebellopontine angle i s unremarkable. EXTRACRANIAL: The visualized portion of the orbits is intact. SKULL: The calvaria is intact. No evidence of skull fracture. CONCLUSION: Normal examination. Juan Sarkar MD on July 17, 2017 at 22:09 Board Certified Radiologist. This report was verified electronically.
[2017-07-18 01:45] VITALS: BP 146/70; PULSE 82; RESP 16; O2SAT 96
[2017-07-18 05:15] VITALS: BP 140/67; PULSE 79; RESP 16; O2SAT 98
--- NOTE | 2017-07-18 06:16 | RADRPT ---
EXAM DATE/TIME: 07/18/2017 05:41 [facility] COMPARISON: No previous studies available for comparison. INDICATIONS : Right side rib pain post fall. MEDICAL HISTORY : Dementia. Cardiovascular disease SURGICAL HISTORY : None. ENCOUNTER: Initial ACUITY: 1 day PAIN SCORE: Non-responsive. LOCATION: Right posterior ribs. FINDINGS: Multiple views of the right ribs were performed. There is no evidence of displaced fracture. No adama tructive lesions or areas of periosteal thickening are seen. Expiratory view of the chest is negativ e for pneumothorax. The mediastinal structures are midline. The patient is status post a sternotomy. CONCLUSION: The right ribs are intact with no evidence of fracture or pneumothorax. Godfrey Khoury MD on July 18, 2017 at 6:14 Board Certified Radiologist. This report was verified electronically.
[2017-07-18 06:27] VITALS: BP 126/57; PULSE 73; RESP 17; TEMP 98.6; O2SAT 96
[2017-07-18] MEDS: LEVOTHYROXINE SODIUM 75 MCG TAB PO SCH (06:38)
[2017-07-18] MEDS: ISOSORBIDE MONONITRATE 60 MG CR TAB (IMDUR) PO SCH (07:00)
[2017-07-18 08:57] VITALS: O2SAT 96
[2017-07-18] MEDS: CARVEDILOL 12.5 MG TAB PO SCH ×2 (09:00→21:27)
[2017-07-18] MEDS: EZETIMIBE 10 MG TAB PO SCH (09:02)
[2017-07-18] MEDS: PANTOPRAZOLE SOD 20 MG DELAYED RELEASE TAB PO SCH (09:02)
[2017-07-18] MEDS: RANOLAZINE 500 MG EXTENDED RELEASE TAB PO SCH ×2 (09:02→21:26)
[2017-07-18] MEDS: LOSARTAN 25 MG TAB PO SCH (09:02)
[2017-07-18] MEDS: ASPIRIN EC 81 MG TABEC PO SCH (09:02)
[2017-07-18] MEDS: SEVELAMER CARBONATE 800 MG TAB PO SCH ×3 (09:03→17:01)
[2017-07-18 09:25] LABS: BICARBONATE 31.7 MEQ/L (21.0-32.0); CALCIUM 8.2 MG/DL (8.5-10.1); CREATININE 7.86 MG/DL (0.60-1.30); MAGNESIUM 2.1 MG/DL (1.5-2.5)
[2017-07-18 10:09] VITALS: BP 133/62; PULSE 76; RESP 18; TEMP 98; O2SAT 98
--- NOTE | 2017-07-18 10:51 | RADRPT ---
EXAM DATE/TIME: 07/18/2017 10:18 [facility] COMPARISON: CT BRAIN W/O CONTRAST, July 17, 2017, 21:59. CT BRAIN W/O CONTRAST, July 15, 2017, 12:50. INDICATIONS : Confusion. MEDICAL HISTORY : Renal disease, end stage. SURGICAL HISTORY : CABG Carpal tunnel. AV fistula. ENCOUNTER: Subsequent ACUITY: 3 day PAIN SCORE: 0/10 LOCATION: head. TECHNIQUE: Multiplanar, multisequence MRI of the brain was performed without contrast. FINDINGS: CEREBRUM: The ventricles are normal for age. No evidence of midline shift, mass lesion, hemorrhage or acute in farction. No extraaxial fluid collections are seen. The pituitary gland and suprasellar cistern are normal in configuration. WHITE MATTER: No significant signal abnormalities are seen in the white matter. POSTERIOR FOSSA: The cerebellum and brainstem are intact. The 4th ventricle is midline. The cerebellopontine angle is unremarkable. The cerebellar tonsils are normal in position. DIFFUSION IMAGING: No focal areas of restricted diffusion are seen. No evidence of acute infarction. EXTRACRANIAL: The visualized portions of the orbits and paranasal sinuses are unremarkable. CONCLUSION: Negative MRI of the brain without contrast. Klaus Schneider MD on July 18, 2017 at 10:40 Board Certified Radiologist. This report was verified electronically.
--- NOTE | 2017-07-18 12:41 | HHI.PYPN ---
Subjective Remarks Patient seen in day room with nurse Mckeon, patient's phone twice in [address] of the brain yesterday was negative MRI of the brain today was negative x-rays of the ribs and elbow were also negative. Patient sitting quietly in dayroom is alert diffusely confused. Focusing on discharge and questioning why his family is not here to get him. Considering the frequency of stools for also present time will refrain from any further medications. Did have Haldol prior for behaviors that works fairly well will observe room and monitor for behaviors tonight Review of Systems Except as stated in HPI: all other systems reviewed are Neg Mental Status Examination Appearance: Appropriate Consciousness: Alert Orientation: x4 Motor Activity: Normal gait Speech: Pressured, Rapid, Other (strong accent) Language: Adequate (strong accent) Fund of Knowledge: Adequate Attention and Concentration: Adequate Memory: Unremarkable (vague), Remote (intact) Mood: Anxious, Other (anxious for discharge) Affect: Euthymic Thought Process & Associations: Intact Thought Content: Appropriate Delusion Type: None Suicidal Ideation: No Suicidal Plan: No Suicidal Intention: No Homicidal Ideation: No Homicidal Plan: No Homicidal Intention: No Insight: Poor Judgment: Poor Results Labs Test 07/18/17 07:52 Blood Urea Nitrogen 55 MG/DL Creatinine 7.86 MG/DL Random Glucose 101 MG/DL Calcium Level 8.2 MG/DL Magnesium Level 2.1 MG/DL Sodium Level 135 MEQ/L Potassium Level 4.9 MEQ/L Chloride Level 93 MEQ/L Carbon Dioxide Level 31.7 MEQ/L Anion Gap 10 MEQ/L Estimat Glomerular Filtration Rate 7 ML/MIN Vitals/IOs Vital Signs Date Time Temp Pulse Resp B/P (MAP) Pulse Ox O2 Delivery O2 Flow Rate FiO2 07/18/17 10:09 98.0 76 18 133/62 (85) 98 07/18/17 08:57 21 07/15/17 15:20 Room Air Intake and Output 07/18/17 07/18/17 07/19/17 08:00 16:00 00:00 Intake Total 240 ml 240 ml Balance 240 ml 240 ml Assessment & Plan Problem List: (1) Brief psychotic disorder ICD Codes: F23 - Brief psychotic disorder Status: Acute Assessment & Plan Estimated LOS: days patient continue some of psychotic paranoid and also forgetful irritable and demanding. For now we'll continue observation Justification for Cont. Inpt. At this time patient would decompensated placed in a lower level of care Discharge Planning To be determined with family Request HC Surrog/Guard Advoc?: No Juan Segovia MD Jul 18, 2017 12:41
--- NOTE | 2017-07-18 13:18 | HHI.PR ---
Subjective Remarks in no acute distress. denies pain. no new complaints. Objective Vitals Vital Signs Date Time Temp Pulse Resp B/P (MAP) Pulse Ox O2 Delivery O2 Flow Rate FiO2 07/18/17 10:09 98.0 76 18 133/62 (85) 98 07/18/17 08:57 96 21 07/18/17 06:27 98.6 73 17 126/57 (80) 96 07/18/17 05:15 79 16 140/67 (91) 98 07/18/17 01:45 82 16 146/70 (95) 96 07/17/17 20:38 80 16 130/78 (95) 07/17/17 19:02 21 07/17/17 18:11 98.8 80 18 119/58 (78) 98 I/O 07/17/17 07/17/17 07/17/17 07/18/17 07/18/17 07/18/17 07:00 15:00 23:00 07:00 15:00 23:00 Intake Total 1320 ml 480 ml 480 ml Balance 1320 ml 480 ml 480 ml Intake Oral 1320 ml 480 ml 480 ml # Voids 0 4 2 # Bowel Movements 0 Result Diagram: 07/16/17 0945 07/18/17 0752 Imaging Last Impressions Ribs X-Ray 07/18/17 0000 Signed Impressions: Service Date/Time: Tuesday, July 18, 2017 05:41 - CONCLUSION: The right ribs are intact with no evidence of fracture or pneumothorax. Godfrey Khoury MD Brain MRI 07/18/17 0000 Signed Impressions: Service Date/Time: Tuesday, July 18, 2017 10:18 - CONCLUSION: Negative MRI of the brain without contrast. Klaus Schneider MD Head CT 07/17/17 0000 Signed Impressions: Service Date/Time: Monday, July 17, 2017 21:59 - CONCLUSION: Normal examination. Juan Sarkar MD Elbow X-Ray 07/17/17 0000 Signed Impressions: Service Date/Time: Monday, July 17, 2017 21:00 - CONCLUSION: No definite acute bony findings. Juan Sarkar MD Objective Remarks GENERAL: This is a well-nourished, well-developed patient, in no apparent distress. CARDIOVASCULAR: Regular rate and regular rhythm without murmurs, gallops, or rubs. RESPIRATORY: Clear to auscultation. Breath sounds equal bilaterally. No wheezes , rales, or rhonchi. GASTROINTESTINAL: Abdomen soft, non-tender, nondistended. Normal, active bowel sounds MUSCULOSKELETAL: Extremities without clubbing, cyanosis, or edema. NEURO: awake and alert. Medications and IVs Inpatient Medications Acetaminophen (Tylenol) 650 mg UNSCH PRN PO for headach, pain, temp > 101F; Start 07/16/17 at 17:30 Al Hydrox/Mg Hydrox/Simethicone (Mag-Al Plus Susp Liq) 30 ml Q6H PRN PO DYSPEPSIA; Start 07/15/17 at 20:15 Albumin Human 100 ml @ 60 mls/hr UNSCH PRN IV WITH DIALYSIS; Start 07/16/17 at 17:30 Aspirin (Ecotrin Ec) 81 mg DAILY PO Last administered on 07/18/17at 09:02; Start 07/16/17 at 09:00 Atorvastatin Calcium (Lipitor) 80 mg HS PO Last administered on 07/17/17at 21:26 ; Start 07/16/17 at 21:00 Carvedilol (Coreg) 12.5 mg BID PO Last administered on 07/17/17 21:26; Start 07/16/17 at 09:00 Cinacalcet (Sensipar) 60 mg HS PO Last administered on 07/17/17 21:26; Start 07/16/17 at 21:00 Clonidine (Catapres) 0.1 mg UNSCH PRN PO for BP > 180/100 X 2 readings; Start 07/16/17 at 17:30 Diphenhydramine HCl (Benadryl) 25 mg UNSCH PRN PO for hives/itching/anaphylaxis ; Start 07/16/17 at 17:30 EZETIMIBE (Zetia) 10 mg DAILY PO Last administered on 07/18/17at 09:02; Start at 09:00 Gelatin (Gelfoam 12 Mm/7 Mm Top) 1 foam UNSCH PRN TOP SEE LABEL COMMENTS; Start 07/16/17 at 17:30 Heparin Sodium (Porcine) (Heparin Inj) 8,000 units UNSCH PRN IV FLUSH WITH DIALYSIS; Start 07/16/17 at 17:30 Hydroxyzine HCl (Atarax) 50 mg Q6H PRN PO ANXIETY; Start 07/16/17 at 11:00 Isosorbide Mononitrate (Imdur) 60 mg DAILY@0700 PO Last administered on at 06:20; Start 07/16/17 at 08:19 Levothyroxine Sodium (Synthroid) 75 mcg DAILY@0600 PO Last administered on 07/18at 06:38; Start 07/17/17 at 06:00 Losartan Potassium (Cozaar) 25 mg DAILY PO Last administered on 07/18/17at 09:02 ; Start 07/16/17 at 09:00 Magnesium Hydroxide (Milk Of Magnesia Liq) 30 ml DAILY PRN PO CONSTIPATION; Start 07/15/17 at 20:15 Mannitol (Mannitol Inj) 12.5 gm UNSCH PRN IV WITH DIALYSIS; Start 07/16/17 at 17:30 Meclizine HCl (Antivert) 25 mg TID PRN PO DIZZINESS; Start 07/16/17 at 08:15 Nitroglycerin (Nitrostat Sl) 0.4 mg UNSCH PRN SL CHEST PAIN; Start 07/16/17 at 17:30 Ondansetron HCl (Zofran Inj) 4 mg UNSCH PRN IV PUSH WITH DIALYSIS; Start at 17:30 Pantoprazole Sodium (Protonix) 20 mg DAILY PO Last administered on 07/18/17at 09 :02; Start 07/16/17 at 09:00 Ranolazine (Ranexa) 1,000 mg BID PO Last administered on 07/18/17at 09:02; Start 07/16/17 at 09:00 Sevelamer Carbonate (Renvela) 2,400 mg TIDAC PO Last administered on 07/18/17at 12:39; Start 07/16/17 at 12:00 Sodium Chloride (NS Flush) 5 ml UNSCH PRN IV FLUSH WITH DIALYSIS; Start at 17:30 A/P Assessment and Plan Psychosis -Management per psychiatric team -Neurology consulted by primary team CAD s/p CABG HTN -Patient has no cardiac complaints at present -Resume home dose of Coreg 12.5 mg twice daily, lisinopril 25 mg daily, Imdur 60 mg daily and Ranexa 1000mg twice daily -ASA 81mg daily -Monitor BP and adjust treatment accordingly ESRD on HD MWF -Nephrology consulted by primary team -Resumed home dose of Sensipar and Renvela Hyperkalemia -resolved. Hypertriglyceridemia -Resumed home dose of Zetia 10 mg daily and Lipitor 80 mg daily Hypothyroidism -TSH 0.261 -Patient currently on levothyroxine 100 mcg daily. decreased dose to 75 mcg daily. -Patient will need to follow-up with PCP as an outpatient to have TSH level rechecked in 6-8 weeks. Anemia, normochromic, normocytic -mild -Suspect anemia of chronic disease -Epogen per nephrology GERD -PPI DVT prophylaxis -Patient is ambulatory Jillian Woods MD Jul 18, 2017 13:18
[2017-07-18 18:00] VITALS: BP 138/71; PULSE 71; RESP 18; TEMP 98.6; O2SAT 100
[2017-07-18] MEDS: CINACALCET HYDROCHLORIDE 30 MG TAB PO SCH (21:26)
[2017-07-18] MEDS: ATORVASTATIN 80 MG TAB PO SCH (21:27)
[2017-07-19] MEDS: hydrOXYzine HCL 50 MG TAB PO PRN ×2 (04:35→10:35)
[2017-07-19 05:15] VITALS: BP 129/63; PULSE 78; RESP 16; TEMP 98.9; O2SAT 98
[2017-07-19] MEDS: LEVOTHYROXINE SODIUM 75 MCG TAB PO SCH (06:43)
[2017-07-19] MEDS: ASPIRIN EC 81 MG TABEC PO SCH (09:00)
[2017-07-19] MEDS: EZETIMIBE 10 MG TAB PO SCH (09:35)
[2017-07-19] MEDS: SEVELAMER CARBONATE 800 MG TAB PO SCH ×2 (09:35→11:20)
[2017-07-19] MEDS: RANOLAZINE 500 MG EXTENDED RELEASE TAB PO SCH (09:35)
[2017-07-19] MEDS: ISOSORBIDE MONONITRATE 60 MG CR TAB (IMDUR) PO SCH (09:35)
[2017-07-19] MEDS: LOSARTAN 25 MG TAB PO SCH (09:37)
[2017-07-19] MEDS: CARVEDILOL 12.5 MG TAB PO SCH (09:37)
[2017-07-19] MEDS: PANTOPRAZOLE SOD 20 MG DELAYED RELEASE TAB PO SCH (09:37)
--- NOTE | 2017-07-19 09:39 | RADRPT ---
EXAM DATE/TIME: 07/19/2017 09:23 [facility] COMPARISON: CT BRAIN W/O CONTRAST, July 17, 2017, 21:59. INDICATIONS : Fall, laceration to posterior right cranium RADIATION DOSE: 39.72 CTDIvol (mGy) MEDICAL HISTORY : Cardiovascular disease. Renal failure SURGICAL HISTORY : CABG ENCOUNTER: Initial ACUITY: 1 day PAIN SCALE: 6/10 LOCATION: Bilateral cranial TECHNIQUE: Multiple contiguous axial images were obtained of the head. Using automated exposure control and adj ustment of the mA and/or kV according to patient size, radiation dose was kept as low as reasonably a chievable to obtain optimal diagnostic quality images. DICOM format image data is available electro nically for review and comparison. FINDINGS: CEREBRUM: The ventricles are normal for age. No evidence of midline shift, mass lesion, hemorrhage or acute in farction. No extra-axial fluid collections are seen. POSTERIOR FOSSA: The cerebellum and brainstem are intact. The 4th ventricle is midline. The cerebellopontine angle i s unremarkable. EXTRACRANIAL: The visualized portion of the orbits is intact. There is soft tissue laceration and swelling posterio rly on the right. SKULL: The calvaria is intact. No evidence of skull fracture. CONCLUSION: 1. No acute intracranial abnormality is identified. 2. Sizable laceration in the posterior scalp. No skull fracture is seen. Ignacio Srinivasan MD on July 19, 2017 at 9:36 Board Certified Radiologist. This report was verified electronically.
[2017-07-19] MEDS ORDERED: diphenhydrAMINE HCL 50 MG/ML VIAL ONE (12:40)
[2017-07-19] MEDS ORDERED: HALOPERIDOL LACTATE 5 MG/ML AMP ONE (12:40)
--- NOTE | 2017-07-19 12:51 | HHI.PYPN ---
Subjective Remarks Patient seen in day room with nurse Sandra, patient sitting in Haley chair patient alert babbling in Divehi quite confused disoriented. Patient has had frequent fallsrecently earlier today there is a small swelling over his right lateral eyebrow. There is an older swelling over his right occipital area that may have been reinjured is a small pustule that was oozing small amount of blood. Patient scheduled go for CT of the head. After my seeing patient and prior to the scheduled CT patient became visibly angry irritable labile getting out of his Haley chair attempting to walk and stumble around the day room and staff attempts to intervene for his safety and his balance he became more aggressive, yelling and resisting them. This necessitated me ordering an as necessary of Haldol 5 mg Benadryl 25 mg IM. Will monitor patient carefully for his safety and fall risk. We'll continue his one-to-one Review of Systems Except as stated in HPI: all other systems reviewed are Neg Mental Status Examination Appearance: Appropriate Consciousness: Alert Orientation: Person Motor Activity: Normal gait Speech: Pressured, Rapid, Other (mumbling in Divehi) Language: Adequate (strong accent), Other (mumbling in Divehi) Fund of Knowledge: Inadequate Attention and Concentration: Easily Distracted Memory: Impaired, Remote (intact) Mood: Angry, Anxious Affect: Other (increase range of motion intensity) Thought Process & Associations: Disorganized Thought Content: Appropriate, Other (difficult to ascertain due to language difficulty) Hallucination Type: Other (difficult to ascertain due to confusion) Delusion Type: Other (difficult to ascertain due to confusion) Suicidal Ideation: No Suicidal Plan: No Suicidal Intention: No Homicidal Ideation: No Homicidal Plan: No Homicidal Intention: No Insight: Poor Judgment: Poor Results Vitals/IOs Vital Signs Date Time Temp Pulse Resp B/P (MAP) Pulse Ox O2 Delivery O2 Flow Rate FiO2 07/19/17 05:15 98.9 78 16 129/63 (85) 98 07/18/17 08:57 21 07/15/17 15:20 Room Air Intake and Output 07/19/17 07/19/17 07/20/17 08:00 16:00 00:00 Intake Total 240 ml Balance 240 ml Assessment & Plan Problem List: (1) Brief psychotic disorder ICD Codes: F23 - Brief psychotic disorder Status: Acute Assessment & Plan Estimated LOS: days patient continues psychotic and agitated. No appears is showing signs perhaps of dementia. Will get neurology consult see medication adjustment above Justification for Cont. Inpt. At this time patient will decompensate a placed a lower level of care Discharge Planning To be determined Request HC Surrog/Guard Advoc?: No Juan Segovia MD Jul 19, 2017 12:51
[2017-07-19] MEDS ORDERED: HALOPERIDOL LACTATE 5 MG/ML AMP IM STA (12:52)
[2017-07-19] MEDS ORDERED: diphenhydrAMINE HCL 50 MG/ML VIAL IM STA (12:52)
--- NOTE | 2017-07-19 13:13 | HHI.PR ---
Subjective Remarks in no acute distress. reportedly had a few falls since yesterday. otherwise no other acute issues. Objective Vitals Vital Signs Date Time Temp Pulse Resp B/P (MAP) Pulse Ox O2 Delivery O2 Flow Rate FiO2 07/19/17 05:15 98.9 78 16 129/63 (85) 98 07/18/17 18:00 98.6 71 18 138/71 (93) 100 I/O 07/18/17 07/18/17 07/18/17 07/19/17 07/19/17 07/19/17 07:00 15:00 23:00 07:00 15:00 23:00 Intake Total 1200 ml 120 ml 720 ml Balance 1200 ml 120 ml 720 ml Intake Oral 1200 ml 120 ml 720 ml # Voids 4 2 Result Diagram: 07/16/17 0945 07/18/17 0752 Imaging Last Impressions Head CT 07/19/17 0000 Signed Impressions: Service Date/Time: Wednesday, July 19, 2017 09:23 - CONCLUSION: 1. No acute intracranial abnormality is identified. 2. Sizable laceration in the posterior scalp. No skull fracture is seen. Ignacio Srinivasan MD Ribs X-Ray 07/18/17 0000 Signed Impressions: Service Date/Time: Tuesday, July 18, 2017 05:41 - CONCLUSION: The right ribs are intact with no evidence of fracture or pneumothorax. Godfrey Khoury MD Brain MRI 07/18/17 0000 Signed Impressions: Service Date/Time: Tuesday, July 18, 2017 10:18 - CONCLUSION: Negative MRI of the brain without contrast. Klaus Schneider MD Elbow X-Ray 07/17/17 0000 Signed Impressions: Service Date/Time: Monday, July 17, 2017 21:00 - CONCLUSION: No definite acute bony findings. Juan Sarkar MD Objective Remarks GENERAL: This is a well-nourished, well-developed patient, in no apparent distress. CARDIOVASCULAR: Regular rate and regular rhythm without murmurs, gallops, or rubs. RESPIRATORY: Clear to auscultation. Breath sounds equal bilaterally. No wheezes , rales, or rhonchi. GASTROINTESTINAL: Abdomen soft, non-tender, nondistended. Normal, active bowel sounds MUSCULOSKELETAL: Extremities without clubbing, cyanosis, or edema. NEURO: awake and alert. Medications and IVs Inpatient Medications Acetaminophen (Tylenol) 650 mg UNSCH PRN PO for headach, pain, temp > 101F; Start 07/16/17 at 17:30 Al Hydrox/Mg Hydrox/Simethicone (Mag-Al Plus Susp Liq) 30 ml Q6H PRN PO DYSPEPSIA; Start 07/15/17 at 20:15 Albumin Human 100 ml @ 60 mls/hr UNSCH PRN IV WITH DIALYSIS; Start 07/16/17 at 17:30 Aspirin (Ecotrin Ec) 81 mg DAILY PO Last administered on 07/18/17at 09:02; Start 07/16/17 at 09:00 Atorvastatin Calcium (Lipitor) 80 mg HS PO Last administered on 07/18/17at 21:27 ; Start 07/16/17 at 21:00 Carvedilol (Coreg) 12.5 mg BID PO Last administered on 07/19/17at 09:37; Start 07/16/17 at 09:00 Cinacalcet (Sensipar) 60 mg HS PO Last administered on 07/18/17at 21:26; Start 07/16/17 at 21:00 Clonidine (Catapres) 0.1 mg UNSCH PRN PO for BP > 180/100 X 2 readings; Start 07/16/17 at 17:30 Diphenhydramine HCl (Benadryl Inj) 25 mg ONCE STAT IM Last administered on at 12:52; Start 07/19/17 at 12:52; Stop 07/19/17 at 12:53; Status DC Diphenhydramine HCl (Benadryl) 25 mg UNSCH PRN PO for hives/itching/ anaphylaxis Last administered on 07/18/17at 23:30; Start 07/16/17 at 17:30 EZETIMIBE (Zetia) 10 mg DAILY PO Last administered on 07/19/17at 09:35; Start at 09:00 Gelatin (Gelfoam 12 Mm/7 Mm Top) 1 foam UNSCH PRN TOP SEE LABEL COMMENTS; Start 07/16/17 at 17:30 Haloperidol Lactate (Haldol Inj) 5 mg ONCE STAT IM Last administered on at 12:52; Start 07/19/17 at 12:52; Stop 07/19/17 at 12:53; Status DC Heparin Sodium (Porcine) (Heparin Inj) 8,000 units UNSCH PRN IV FLUSH WITH DIALYSIS; Start 07/16/17 at 17:30 Hydroxyzine HCl (Atarax) 50 mg Q6H PRN PO ANXIETY Last administered on at 10:35; Start 07/16/17 at 11:00 Isosorbide Mononitrate (Imdur) 60 mg DAILY@0700 PO Last administered on 09:35; Start 07/16/17 at 08:19 Levothyroxine Sodium (Synthroid) 75 mcg DAILY@0600 PO Last administered on 07/19 06:43; Start 07/17/17 at 06:00 Losartan Potassium (Cozaar) 25 mg DAILY PO Last administered on 07/19/17 09:37 ; Start 07/16/17 at 09:00 Magnesium Hydroxide (Milk Of Magnesia Liq) 30 ml DAILY PRN PO CONSTIPATION; Start 07/15/17 at 20:15 Mannitol (Mannitol Inj) 12.5 gm UNSCH PRN IV WITH DIALYSIS; Start 07/16/17 at 17:30 Meclizine HCl (Antivert) 25 mg TID PRN PO DIZZINESS; Start 07/16/17 at 08:15 Nitroglycerin (Nitrostat Sl) 0.4 mg UNSCH PRN SL CHEST PAIN; Start 07/16/17 at 17:30 Ondansetron HCl (Zofran Inj) 4 mg UNSCH PRN IV PUSH WITH DIALYSIS; Start at 17:30 Pantoprazole Sodium (Protonix) 20 mg DAILY PO Last administered on 07/19/17at 09 :37; Start 07/16/17 at 09:00 Ranolazine (Ranexa) 1,000 mg BID PO Last administered on 07/19/17 09:35; Start 07/16/17 at 09:00 Sevelamer Carbonate (Renvela) 2,400 mg TIDAC PO Last administered on 07/19/17at 11:20; Start 07/16/17 at 12:00 Sodium Chloride (NS Flush) 5 ml UNSCH PRN IV FLUSH WITH DIALYSIS; Start at 17:30 A/P Assessment and Plan Psychosis -Management per psychiatric team -Neurology consulted by primary team falls CT head with no acute abnormality and scalp laceration. fall precautions- consult PT CAD s/p CABG HTN -Patient has no cardiac complaints at present -Resumed home dose of Coreg 12.5 mg twice daily, lisinopril 25 mg daily, Imdur 60 mg daily and Ranexa 1000mg twice daily -ASA 81mg daily -Monitor BP and adjust treatment accordingly ESRD on HD MWF -Nephrology consulted by primary team -Resumed home dose of Sensipar and Renvela Hyperkalemia -resolved. Hypertriglyceridemia -Resumed home dose of Zetia 10 mg daily and Lipitor 80 mg daily Hypothyroidism -TSH 0.261 -Patient currently on levothyroxine 100 mcg daily. decreased dose to 75 mcg daily. -Patient will need to follow-up with PCP as an outpatient to have TSH level rechecked in 6-8 weeks. Anemia, normochromic, normocytic -mild -Suspect anemia of chronic disease -Epogen per nephrology GERD -PPI DVT prophylaxis -Patient is ambulatory Jillian Woods MD Jul 19, 2017 13:13
--- NOTE | 2017-07-19 14:20 | HHI.DS ---
Psychiatry Discharge Summary Inpatient Psychiatric care?: Yes Advance Directive: No Reason Not Provided: DECLINED Mental Health AdvanceDirective: No Health Care Proxy: No Admission Admission Date Jul 15, 2017 at 17:49 Admission Diagnosis: (1) Brief psychotic disorder ICD Code: F23 - Brief psychotic disorder Brief History Patient is a 67-year-old male comes her voluntarily with family history of increased by Dr. visual hallucinations and paranoia this seems to be more cycling through late afternoon into the evening. Patient is also a dialysis patient. He states she's been compliant with that. Patient gives no significant past psychiatric history this is been going on for the past couple of weeks. He denies alcohol or drug use with this. Patient does denies suicidality with me. Does deny homicidality.. It appears this patient has had family members with fairly early onset dementia. Of interest family members states this is a fairly rapid onset. Patient appears not of the appropriate age group for an onset of a mood disorder. Though the may be an early onset of a dementing type procedure. Will have neurology consult with us also along with the nephrology and the hospitalist Tobacco Use In Past 30 Days: No Tobacco Past 30 Days Alcohol Use: Never Hospital Course Earlier today patient had marked agitation and aggressive behavior necessitating an ETO of Haldol 5 mg IM and Benadryl 25 mg IM about 2+ hours later patient developed seizure-like activity with grand mal type activity. A hallux Was called. Patient vitals signs stable though patient would be discharge HPC directly admitted to [facility] Results Blood Pressure 129 / 63 Vital Signs Date Time Temp Pulse Resp B/P (MAP) Pulse Ox O2 Delivery O2 Flow Rate FiO2 07/19/17 05:15 98.9 78 16 129/63 (85) 98 07/18/17 08:57 21 07/15/17 15:20 Room Air Laboratory Tests Test 07/17/17 06:56 07/18/17 07:52 Total Triiodothyronine 48 NG/DL (60-181) Blood Urea Nitrogen 55 MG/DL (7-18) Creatinine 7.86 MG/DL (0.60-1.30) Calcium Level 8.2 MG/DL (8.5-10.1) Sodium Level 135 MEQ/L (136-145) Chloride Level 93 MEQ/L (98-107) Estimat Glomerular Filtration Rate 7 ML/MIN (>89) Laboratory Results Test 07/16/17 09:45 Cholesterol Level 146 MG/DL (120-200) HDL Cholesterol 51.5 MG/DL (40.0-60.0) Hemoglobin A1c 5.7 % (4.3-6.0) LDL Cholesterol 81 MG/DL (0-99) Triglycerides Level 66 MG/DL (42-150) Summary of Procedures None done Imaging Last Impressions Head CT 07/19/17 0000 Signed Impressions: Service Date/Time: Wednesday, July 19, 2017 09:23 - CONCLUSION: 1. No acute intracranial abnormality is identified. 2. Sizable laceration in the posterior scalp. No skull fracture is seen. Ignacio Srinivasan MD Ribs X-Ray 07/18/17 0000 Signed Impressions: Service Date/Time: Tuesday, July 18, 2017 05:41 - CONCLUSION: The right ribs are intact with no evidence of fracture or pneumothorax. Godfrey Khoury MD Brain MRI 07/18/17 0000 Signed Impressions: Service Date/Time: Tuesday, July 18, 2017 10:18 - CONCLUSION: Negative MRI of the brain without contrast. Klaus Schneider MD Elbow X-Ray 07/17/17 0000 Signed Impressions: Service Date/Time: Monday, July 17, 2017 21:00 - CONCLUSION: No definite acute bony findings. Juan Sarkar MD Pending results at discharge: No Medications # of Antipsychotic meds at D/C: 0 Approp Antipsych med options 1 - Minimum of three failed multiple trials of monotherapy. 2 - Documented plan to taper to monotherapy due to previous use of multiple meds OR cross-taper in progress at D/C. 3 - Documentation of augmentation of Clozapine. 4 - Justification other than those listed in allowable values 1-3, document here : Discharge Discharge Date: Jul 19, 2017 Discharge Diagnosis: (1) Brief psychotic disorder Diagnosis: Secondary ICD Code: F23 - Brief psychotic disorder Status: Acute (2) DEMENTIA IN OTH DISEASES CLASSD ELSWHR W BEHAVIORAL DISTURB Diagnosis: Principal ICD Code: F02.81 - DEMENTIA IN OTH DISEASES CLASSD ELSWHR W BEHAVIORAL DISTURB (3) Alzheimer's disease with late onset Diagnosis: Principal ICD Code: G30.1 - Alzheimer's disease with late onset; F02.80 - Dementia in other diseases classified elsewhere without behavioral disturbance (4) Seizures Diagnosis: Secondary ICD Code: R56.9 - Unspecified convulsions Pt Condition on Discharge: Guarded Discharge Disposition: Trnsfr to Other Facility Discharge Instructions Diet Instructions: Heart Healthy Diet Additional Diet Instructions: per treatment team IMC Activities you can perform: See Additionl Instruction Other Activity Instructions: Per treatment team IMC Scheduled Appointment: patient transferred to [facility] Discharge Time > 30 minutes Mental Status Examination Appearance: Appropriate Consciousness: Alert Orientation: Person Motor Activity: Normal gait Speech: Pressured, Rapid, Other (mumbling in Hungarian) Language: Adequate (strong accent), Other (mumbling in Hungarian) Fund of Knowledge: Inadequate Attention and Concentration: Easily Distracted Memory: Impaired, Remote (intact) Mood: Angry, Anxious Affect: Other (increase range of motion intensity) Thought Process & Associations: Disorganized Thought Content: Appropriate, Other (difficult to ascertain due to language difficulty) Hallucination Type: Other (difficult to ascertain due to confusion) Delusion Type: Other (difficult to ascertain due to confusion) Suicidal Ideation: No Suicidal Plan: No Suicidal Intention: No Homicidal Ideation: No Homicidal Plan: No Homicidal Intention: No Insight: Poor Judgment: Poor Discharge/Advance Care Plan Health Problems: (1) Brief psychotic disorder Goals to promote your health * To prevent worsening of your condition and complications * To maintain your health at the optimal level Directions to meet your goals Take your medications as prescribed Follow your dietary instruction Follow activity as directed Keep your appointments as scheduled Take your immunizations and boosters as scheduled If your symptoms worsen call your PCP, if no PCP go to Urgent Care Center or Emergency Room For 19/12 questions related to your inpatient stay or results of tests pending at discharge, please contact Dr. Juan Segovia at Smoking is Dangerous to Your Health. Avoid second hand smoking Juan Segovia MD Jul 19, 2017 14:20
[2017-07-19] MEDS ORDERED: FOSPHENYTOIN INJ 1,000 MGPE in SODIUM CHLORIDE 0.9% INJ 50 ML IV STA (14:27)
[2017-07-19] MEDS ORDERED: LORazepam 2 MG/ML VIAL IV PRN (14:30)
[2017-07-19] MEDS ORDERED: ETOMIDATE 40 MG/20 ML VIAL ONE (14:54)
[2017-07-19] MEDS ORDERED: PROPOFOL 500 MG/50 ML INJ 50 ML ONE (15:01)
--- NOTE | 2017-07-19 15:04 | HHI.NPPN ---
Subjective History of Present Illness 67 year old male with ESRD, Mood disorder Additional Remarks hx of fall now having seizures , getting intubated Objective Data Data Vital Signs Date Time Temp Pulse Resp B/P (MAP) Pulse Ox O2 Delivery O2 Flow Rate FiO2 07/19/17 05:15 98.9 78 16 129/63 (85) 98 07/18/17 18:00 98.6 71 18 138/71 (93) 100 -: 07/16/17 0945 07/18/17 0752 Physical Exam General Appearance: Well Developed, Well Nourished Neck Neck Exam: Neck Supple Pulmonary Resp Exam: Decreased Bases Cardiology CV Exam: Regular, Murmur Gastrointestinal/Abdomen GI Exam: Soft, Non-Tender, Bowel Sounds Present Extremeties Extremities Exam: No Edema Assessment/Plan Problem List: (1) ESRD (end stage renal disease) ICD Codes: N18.6 - End stage renal disease Status: Acute Plan: Patient notes this on Monday, Monday and Monday had seizure Dialysis will be done this afternoon getting settled post ictal Continue to monitor d/w Dr. Calderon (2) Hyperkalemia ICD Codes: E87.5 - Hyperkalemia (3) Hypertension ICD Codes: I10 - Essential (primary) hypertension Plan: Continue to monitor (4) Brief psychotic disorder ICD Codes: F23 - Brief psychotic disorder Status: Acute Plan: Psychiatry following Problem Qualifiers (1) Hypertension: Qualified Codes: I10 - Essential (primary) hypertension Joshua Hernadez MD Jul 19, 2017 15:04
[2017-07-19] MEDS ORDERED: PHENYLEPHRINE HCL 10 MG/ML VIAL ONE (15:07)
[2017-07-19 15:10] VITALS: O2SAT 100
--- NOTE | 2017-07-19 15:21 | HHI.PR ---
Addendum To [facility] Progress Not Reason for addendum: Additonal documentation (was notified by the RN that the patient had a seizure.patient was transferred to the ICU with rn vascular and neurology evaluation.) Jillian Woods MD Jul 19, 2017 15:21
[2017-07-19] MEDS ORDERED: FOSPHENYTOIN SODIUM 100 MG PE/2 ML VIAL IV SCH (22:00)
[2017-07-20] MEDS ORDERED: MIDAZOLAM HCL 2 MG/2 ML VIAL ONE (14:52)
== END 2017-07-19 15:42 | disposition short-term general hospital (02) | DRG 885 ==
LOC: NEPC 11:27 → NEDA 17:49 → H250 19:43 → UNDODISIN 07-19 14:30 → HIME 07-19 14:40 → H250 07-19 15:39
PROVIDERS: ADMIT Psychiatry & Neurology Psychiatry; ATTEND Psychiatry & Neurology Psychiatry
PROC: 5A1D70Z Performance of Urinary Filtration, Intermittent, Less than 6 Hours Per Day (ICD-10-PCS; principal; 2017-07-17)
DX: F23 Brief psychotic disorder (principal); R56.9 Unspecified convulsions; N18.6 End stage renal disease; I12.0 Hypertensive chronic kidney disease with stage 5 chronic kidney disease or end stage renal disease; E87.5 Hyperkalemia; G30.1 Alzheimer's disease with late onset; F02.80 Dementia in other diseases classified elsewhere, unspecified severity, without behavioral disturbance, psychotic disturbance, mood disturbance, and anxiety; D63.1 Anemia in chronic kidney disease; S00.83XA Contusion of other part of head, initial encounter; E03.9 Hypothyroidism, unspecified; I25.10 Atherosclerotic heart disease of native coronary artery without angina pectoris; E78.5 Hyperlipidemia, unspecified; E78.1 Pure hyperglyceridemia; K21.9 Gastro-esophageal reflux disease without esophagitis; W19.XXXA Unspecified fall, initial encounter; Y92.239 Unspecified place in hospital as the place of occurrence of the external cause; Z95.1 Presence of aortocoronary bypass graft; Z99.2 Dependence on renal dialysis; Z79.82 Long term (current) use of aspirin
CPT/HCPCS: 31500; 62270; 70450; 70551; 71101; 73070; 77003; 80048; 80053; 80061; 80074; 82306; 82607; 83036; 83735; 84100; 84439; 84443; 84480; 85025; 87899; 90935; 93005; 95819; 99285; J1200; J1630; J2250; J2370; J3010

== ENCOUNTER 2017-07-19 15:48 | Inpatient (IN) | payer OTHER, MEDICAID, MEDICARE ==
[~2017-07-19] VITALS: Ht 170.2 cm; Wt 67.0 kg
[2017-07-19] VITALS (8 sets, daily range): BP systolic 91–127; BP diastolic 53–59; PULSE 63–73; RESP 18–32; TEMP 98.6–98.7; O2SAT 100
[~2017-07-19 15:48] MED LIST: ALPR.25 PO; ASPI81TA16 PO; CARV12.5 PO; CINA30 PO; EZET10 PO; ISOS60TA PO; LEVO100T5 PO; LOSA25TA PO; MECL-62 PO; OMEP20TA93 PO; RANE1000 PO; ROSU40 PO; SEVEL800 PO; ZOLO50TA PO
[2017-07-19] MEDS ORDERED: FOSPHENYTOIN INJ 1,000 MGPE in SODIUM CHLORIDE 0.9% INJ 50 ML IV STA (16:09)
--- NOTE | 2017-07-19 16:20 | RADRPT ---
EXAM DATE/TIME: 07/19/2017 15:59 [facility] COMPARISON: RIBS RIGHT(W PA CXR MIN 3VWS), July 18, 2017, 5:41. INDICATIONS : Post intubation. MEDICAL HISTORY : Dementia. Cardiovascular disease SURGICAL HISTORY : CABG. ENCOUNTER: Initial ACUITY: 1 day PAIN SCORE: Non-responsive. LOCATION: Bilateral chest FINDINGS: The endotracheal tube is at the level of the katarzyna. The lungs are symmetrically aerated. Fracture of the lateral right 7th rib with mild displacement. No evidence of pneumothorax. Both hemidiaphrag ms well delineated. Evidence of prior median sternotomy with sternal wire sutures. CONCLUSION: 1. ET tube is at the level of the katarzyna and needs to be withdrawn 2 cm. 2. Mildly displaced fracture of the posterolateral right 7th rib. Klaus Schneider MD on July 19, 2017 at 16:16 Board Certified Radiologist. This report was verified electronically.
[2017-07-19] MEDS ORDERED: CHLORHEXIDINE GLUCONATE 2 % 1 PACK (2 CLOTHS) TOP PRN (16:30)
[2017-07-19] MEDS ORDERED: BISACODYL 10 MG SUPP RECTAL PRN (16:30)
[2017-07-19] MEDS ORDERED: MAGNESIUM HYDROXIDE SUSP 30 ML CUP PO PRN (16:30)
[2017-07-19] MEDS ORDERED: RESP: ALBUTEROL 2.5 MG/IPRATROPIUM 0.5 MG NEB (PRN) INH (16:30)
[2017-07-19] MEDS ORDERED: LACTULOSE SYRUP 20 GM/30 ML CUP PO PRN (16:30)
[2017-07-19] MEDS ORDERED: MISCELLANEOUS NURSING INFORMATION XX SCH (16:30)
[2017-07-19] MEDS ORDERED: SENNOSIDES 8.6 MG TAB PO PRN (16:30)
[2017-07-19] MEDS ORDERED: PROPOFOL 1000 MG/100 ML INJ 100 ML IV PRN (16:30)
[2017-07-19] MEDS: LORazepam 2 MG/ML VIAL IV PRN (16:46)
[2017-07-19] MEDS ORDERED: EPINEPHrine HCL (1:10,000) 1 MG/10 ML SYRINGE ONE (17:24)
--- NOTE | 2017-07-19 17:52 | RADRPT ---
EXAM DATE/TIME: 07/19/2017 17:39 [facility] COMPARISON: CT BRAIN W/O CONTRAST, July 19, 2017, 9:23. INDICATIONS : Altered mental status RADIATION DOSE: 41.51 CTDIvol (mGy) MEDICAL HISTORY : Dementia. Cardiovascular disease Dialysis SURGICAL HISTORY : None. ENCOUNTER: Initial ACUITY: 1 day PAIN SCALE: Non-responsive LOCATION: cranial TECHNIQUE: Multiple contiguous axial images were obtained of the head. Using automated exposure control and adj ustment of the mA and/or kV according to patient size, radiation dose was kept as low as reasonably a chievable to obtain optimal diagnostic quality images. DICOM format image data is available electro nically for review and comparison. FINDINGS: CEREBRUM: The ventricles are normal for age. No evidence of midline shift, mass lesion, hemorrhage or acute in farction. No extra-axial fluid collections are seen. POSTERIOR FOSSA: The cerebellum and brainstem are intact. The 4th ventricle is midline. The cerebellopontine angle i s unremarkable. EXTRACRANIAL: The visualized portion of the orbits is intact. SKULL: The calvaria is intact. No evidence of skull fracture. CONCLUSION: Normal examination. Juan Sarkar MD on July 19, 2017 at 17:49 Board Certified Radiologist. This report was verified electronically.
--- NOTE | 2017-07-19 18:33 | MG ---
cc: DIMITRIOS JEAN M.D. Corrected: 07/21/2017 Lab No: Date: 07/19/2017 Age: Sex: M Race: REFERRING PHYSICIAN: Dr. Salas. An EEG was obtained on this 67-year-old patient with a history of hallucinations, insomnia and seizures. The patient is intubated, no sedation. The EEG shows prominent theta and delta rhythms bilaterally. There is some beta activity but there is a lack of alpha rhythms. There are no changes with photic stimulation. INTERPRETATION: Abnormal EEG because of prominent bihemispheric slowing suggesting a severe diffuse disturbance of cerebral function or bilateral structural abnormalities. No epileptiform features. MD ALICJA Cohen/TASH /6:05 PM /6:24 PM [facility]ITAL[facility]athan
[2017-07-19 18:34] LABS: AUTOMATED NEUTROPHIL # 5.1 TH/MM3 (1.8-7.7); BASOPHIL % 0.3 % (0.0-2.0); EOSINOPHIL # 0.2 TH/MM3 (0-0.4); EOSINOPHIL % 2.5 % (0.0-4.0); HEMOGLOBIN 8.6 GM/DL (13.0-17.0); LYMPH % 13.6 % (9.0-44.0); LYMPHOCYTE # 0.9 TH/MM3 (1.0-4.8); MEAN CELL VOLUME 89.3 FL (80.0-100.0); MEAN CORPUSCULAR HEMOGLOBIN 30.6 PG (27.0-34.0); MEAN CORPUSCULAR HGB CONC 34.3 % (32.0-36.0); MEAN PLATELET VOLUME 10.3 FL (7.0-11.0); MONO % 7.8 % (0.0-8.0); MONOCYTE # 0.5 TH/MM3 (0-0.9); NEUT % 75.8 % (16.0-70.0); PLATELET COUNT 139 TH/MM3 (150-450); RED CELL DISTRIBUTION WIDTH 15.8 % (11.6-17.2); WHITE BLOOD COUNT 6.7 TH/MM3 (4.0-11.0)
[2017-07-19 18:42] LABS: ALBUMIN 2.9 GM/DL (3.4-5.0); AST (GOT) 24 U/L (15-37); BICARBONATE 31.1 MEQ/L (21.0-32.0); BLOOD UREA NITROGEN 70 MG/DL (7-18); CALCIUM 7.6 MG/DL (8.5-10.1); CHLORIDE 94 MEQ/L (98-107); CREATININE 9.35 MG/DL (0.60-1.30); DIRECT BILIRUBIN ADULT 0.6 MG/DL (0.0-0.2); GLOMERULAR FILTRATION RATE 6 ML/MIN (>89); GLUCOSE,RANDOM 98 MG/DL (74-106); MAGNESIUM 2.1 MG/DL (1.5-2.5); SODIUM (NA) 135 MEQ/L (136-145)
[2017-07-19 18:44] LABS: INDIRECT BILIRUBIN 0.8 MG/DL (0.0-0.8); TOTAL BILIRUBIN ADULT 1.4 MG/DL (0.2-1.0); TOTAL PROTEIN 6.5 GM/DL (6.4-8.2)
[2017-07-19 19:03] LABS: ALKALINE PHOSPHATASE 193 U/L (45-117); ALT (GPT) 18 U/L (12-78); FREE T3 0.82 PG/ML (2.18-3.98); FREE T4 1.15 NG/DL (0.76-1.46); PHOSPHORUS 3.1 MG/DL (2.5-4.9); TOTAL BILIRUBIN ADULT 1.5 MG/DL (0.2-1.0); TOTAL PROTEIN 6.6 GM/DL (6.4-8.2)
[2017-07-19] MEDS ORDERED: ALBUMIN 5% IV ONE (19:06)
--- NOTE | 2017-07-19 20:08 | HHI.HP ---
HPI Service Critical Care Medicine Primary Care Physician Unknown Admission Diagnosis Seizure disorder, unresponsive Diagnosis: (1) Seizures Diagnosis: Principal Travel History International Travel<30 Days: No Contact w/Intl Traveler <30 Da: No Traveled to Known Affected Are: No History of Present Illness This is a 67-year-old male, that was admitted to inpatient psychiatry unit. Per report, the patient has a seizure disorder, and previous attempts have been made to obtain EEG. Dr. Salas, neurologist. The patient had been having falls for the past several days, and subsequently had a laceration in the posterior scalp. Today the patient was noted to be in the day room having a tonic-clonic seizure, and subsequent unresponsiveness. A Halicat was initiated , and the patient was transferred to [facility]. Upon my evaluation the patient was nonresponsive, O2 saturation was 97%, the patient was unable to protect airway. The patient was emergently intubated, and placed on a ventilator. A stat chest x-ray was performed which showed a posterolateral 7th rib fracture. A stat CT of the brain was obtained, results negative. Stat EEG was obtained prior to initiation of sedation, the patient was then loaded with fosphenytoin. Critical care is requested for management. Review of Systems ROS Limitations: Clinical Condition Past Family Social History Allergies: Coded Allergies: No Known Allergies (Unverified , 07/15/17) Past Medical History Unable to obtain secondary to patient's clinical condition Past Surgical History And able to obtain due to patient's clinical condition Reported Medications Reviewed Active Ordered Medications see MAR Family History Unable to obtain secondary to patient's medical condition Social History Unable to obtain secondary to patient's clinical condition Physical Exam Vital Signs Vital Signs Date Time Temp Pulse Resp B/P (MAP) Pulse Ox O2 Delivery O2 Flow Rate FiO2 07/19/17 16:40 100 100 07/19/17 15:10 100 50 Physical Exam GENERAL: Critically ill-appearing well-developed well-nourished male currently intubated, nonresponsive SKIN: Warm and dry. HEAD: Atraumatic. Normocephalic. EYES: Pupils equal and round. No scleral icterus. No injection or drainage. ENT: No nasal bleeding or discharge. Mucous membranes pink and moist. NECK: Trachea midline. No JVD. CARDIOVASCULAR: Normal rate, regular rhythm. RESPIRATORY: No accessory muscle use. Clear to auscultation. Breath sounds equal bilaterally. GASTROINTESTINAL: Abdomen soft, non-tender, nondistended. No guarding. MUSCULOSKELETAL: Extremities without clubbing, cyanosis, or edema. No obvious deformities. NEUROLOGICAL: Unresponsive. RASS -3. Not following commands ,but spontaneous movement in all 4 extremities. Laboratory Laboratory Tests Test 07/19/17 16:02 07/19/17 17:57 07/19/17 18:05 07/19/17 18:27 Blood Gas Puncture Site RT BRACHIAL Blood Gas Patient Temperature 98.6 Blood Gas HCO3 28 Blood Gas Base Excess 4.4 Blood Gas Oxygen Saturation 97 Arterial Blood pH 7.45 Arterial Blood Partial Pressure CO2 41 Arterial Blood Partial Pressure O2 479 Arterial Blood Oxygen Content 13.4 Arterial Blood Carboxyhemoglobin 0.6 Arterial Blood Methemoglobin 1.8 Blood Gas Hemoglobin 8.9 Oxygen Delivery Device VENTILATOR Blood Gas Ventilator Setting Blood Gas Inspired Oxygen 100 White Blood Count 6.7 Red Blood Count 2.80 Hemoglobin 8.6 Hematocrit 25.0 Mean Corpuscular Volume 89.3 Mean Corpuscular Hemoglobin 30.6 Mean Corpuscular Hemoglobin Concent 34.3 Red Cell Distribution Width 15.8 Platelet Count 139 Mean Platelet Volume 10.3 Neutrophils (%) (Auto) 75.8 Lymphocytes (%) (Auto) 13.6 Monocytes (%) (Auto) 7.8 Eosinophils (%) (Auto) 2.5 Basophils (%) (Auto) 0.3 Neutrophils # (Auto) 5.1 Lymphocytes # (Auto) 0.9 Monocytes # (Auto) 0.5 Eosinophils # (Auto) 0.2 Basophils # (Auto) 0.0 CBC Comment DIFF FINAL Differential Comment Blood Urea Nitrogen 70 Creatinine 9.35 Random Glucose 98 Total Protein 6.6 Albumin 3.0 Calcium Level 7.6 Phosphorus Level 3.1 Magnesium Level 2.1 Alkaline Phosphatase 193 Aspartate Amino Transf (AST/SGOT) 24 Alanine Aminotransferase (ALT/SGPT) 18 Total Bilirubin 1.5 Sodium Level 135 Potassium Level 5.3 Chloride Level 94 Carbon Dioxide Level 31.1 Anion Gap 10 Estimat Glomerular Filtration Rate 6 Direct Bilirubin 0.6 Indirect Bilirubin 0.8 Total Creatine Kinase 918 Creatine Kinase MB 1.5 Creatine Kinase MB % 0.2 Free Thyroxine 1.15 Free Triiodothyronine (T3) pg/dL 0.82 Thyroid Stimulating Hormone 3rd Gen 0.826 Test 07/19/17 18:30 Ammonia LESS THAN 10 Result Diagram: 2/21/18 1805 07/19/17 1805 Imaging Last Impressions Head CT 07/19/17 0000 Signed Impressions: Service Date/Time: Wednesday, July 19, 2017 17:39 - CONCLUSION: Normal examination. Juan Sarkar MD Chest X-Ray 07/19/17 0000 Signed Impressions: Service Date/Time: Wednesday, July 19, 2017 15:59 - CONCLUSION: 1. ET tube is at the level of the katarzyna and needs to be withdrawn 2 cm. 2. Mildly displaced fracture of the posterolateral right 7th rib. Klaus Schneider MD Septic Shock Reassessment Septic shock perfusion: reassessment completed Caprini VTE Risk Assessment Caprini VTE Risk Assessment: Mod/High Risk (score >= 2) Caprini Risk Assessment Model Point Value = 1 Point Value = 2 Point Value = 3 Point Value = 5 Age 41-60 Minor surgery BMI > 25 kg/m2 Swollen legs Varicose veins or History of unexplained or recurrent spontaneous Oral contraceptives or hormone replacement Sepsis (< 1 month) Serious lung disease, including pneumonia (< 1 month) Abnormal pulmonary function Acute myocardial infarction Congestive heart failure (< 1 month) History of inflammatory bowel disease Medical patient at bed rest Age 61-74 Arthroscopic surgery Major open surgery (> 45 min) Laparoscopic surgery (> 45 min) Malignancy Confined to bed (> 72 hours) Immobilizing plaster cast Central venous access Age >= 75 History of VTE Family history of VTE Factor V Leiden Prothrombin [id number] Lupus anticoagulant Anticardiolipin antibodies Elevated serum homocysteine Heparin-induced thrombocytopenia Other congenital or acquired thrombophilia Stroke (< 1 month) Elective arthroplasty Hip, pelvis, or leg fracture Acute spinal cord injury (< 1 month) Prophylaxis Regimen Total Risk Factor Score Risk Level Prophylaxis Regimen 0-1 Low Early ambulation 2 Moderate Order ONE of the following: *Sequential Compression Device (SCD) *Heparin 5000 units SQ BID 3-4 Higher Order ONE of the following medications: *Heparin 5000 units SQ TID *Enoxaparin/Lovenox 40 mg SQ daily (WT < 150 kg, CrCl > 30 mL/min) *Enoxaparin/Lovenox 30 mg SQ daily (WT < 150 kg, CrCl > 10-29 mL/min) *Enoxaparin/Lovenox 30 mg SQ BID (WT < 150 kg, CrCl > 30 mL/min) AND/OR *Sequential Compression Device (SCD) 5 or more Highest Order ONE of the following medications: *Heparin 5000 units SQ TID (Preferred with Epidurals) *Enoxaparin/Lovenox 40 mg SQ daily (WT < 150 kg, CrCl > 30 mL/min) *Enoxaparin/Lovenox 30 mg SQ daily (WT < 150 kg, CrCl > 10-29 mL/min) *Enoxaparin/Lovenox 30 mg SQ BID (WT < 150 kg, CrCl > 30 mL/min) AND *Sequential Compression Device (SCD) Assessment and Plan Assessment and Plan This is a 67 year old male emergently intubated for airway protection after experiencing active seizures. The patient after imaging now has a mildly displaced 7th rib fracture and at risk for possible pneumothorax. Patient is critically ill. Plan by systems: Neurologic: Seizure disorder Mood disorder Dementia Neurology following- Dr. Salas , follow-up recommendations Fosphenytoin 1 g load, then fosphenytoin 100 mg TID Obtain stat EEG Ativan for active seizures Seizure precautions Ammonia level <10 Postictal state Respiratory: Daily hypoxemic respiratory failure Patient intubated with 8.0 ETT, initially 24 cm at the lip, retracted to 22 cm @ lip post CXR 07/19 chest [id number] seventh rib fracture Obtain chest x-ray in a.m., or sooner if respiratory decompensation-patient at risk for pneumothorax Continue to closely monitor peak pressure on ventilator Monitor ABG Wean FiO2, to maintain O2sat greater than 92% Ventilator bundle Duo nebs every 6 hours scheduled, every 2 hours when necessary Begin CPAP trials in a.m. for possible extubation Cardiovascular: Cardiovascular disease Hypertension Continue previous medications rosuvastatin 40 mg/at bedtime, continue ASA 81 mg/ day continue Ranexa ER 1gm BID, Isordil 60 mg/day, Carvedilol 12.5 BID Patient's previous medication includes losartan, Isordil will hold for now Renal: ESRD Nephrology following-Dr. Hernadez Hemodialysis per nephrology -- Strict I/Os Continue previous meds FEN/GI: Electrolyte derangement Hyperlipidemia Replete electrolytes per ICU protocol and nephrology's approval Potassium level 5.3-patient undergoing IHD tonight Continue Sevlamer 800 mg TID Continue Zetia 10mg/d Alkaline phosphatase noted elevation Obtain gallbladder ultrasound Creatinine kinase 918 F/U LFT's Heme/ID: Monitor CBC Obtain cultures if clinically indicated Endocrine: Hypothyroidism Continue levothyroxine 100 mg/day Glucose monitoring per ICU protocol -- SSI Prophylaxis: GI Prophylaxis Famotidine BID DVT Prophylaxis -- SCDs Heparin BID Lines: Peripheral IVs 2. Central line if indicated Dispo: my billing statement This patient remains critically ill with one or more organ systems which are or may become a threat to life. I have spent in excess of 49 minutes discontinuously in the care and management of this patient. This time is exclusive of procedures, and includes, but is not limited to, evaluation of the patient, review of the medical record, discussions with family, consultants, nursing staff, or respiratory therapy, and documentation in the medical record. Code Status full Discussed Condition With IRS AGENT at bedside (Melly) Nickie Calderon MD Jul 19, 2017 20:08
[2017-07-19] MEDS: LORazepam 2 MG/ML VIAL IV PUSH PRN (20:17)
[2017-07-19] MEDS ORDERED: NS 250 ML IV PRN (20:30)
[2017-07-19] MEDS ORDERED: GENTAMICIN SULFATE 20 MG/2 ML VIAL OTHER PRN (20:30)
[2017-07-19] MEDS ORDERED: HEPARIN SODIUM - IV 10,000 UNITS/10 ML VIAL IV FLUSH PRN (20:30)
[2017-07-19] MEDS ORDERED: SODIUM CHLOR 0.9% 1000 ML OTHER PRN ×2 (20:30)
[2017-07-19] MEDS ORDERED: RASS Change Order XX ONE (20:30)
[2017-07-19] MEDS ORDERED: ACETAMINOPHEN 325 MG TAB PO PRN (20:30)
[2017-07-19] MEDS ORDERED: GLUCAGON 1 MG/ML VIAL OTHER PRN (20:30)
[2017-07-19] MEDS ORDERED: ONDANSETRON HCL 4 MG/2 ML VIAL IV PUSH PRN (20:30)
[2017-07-19] MEDS ORDERED: SODIUM CHLORIDE 0.9% FLUSH 10 ML FLUSH IV FLUSH PRN (20:30)
[2017-07-19] MEDS ORDERED: MANNITOL 12.5 GM/50 ML VIAL IV PUSH PRN (20:30)
[2017-07-19] MEDS ORDERED: NITROGLYCERIN 0.4 MG SL 25 TABS/BTL SL PRN (20:30)
[2017-07-19] MEDS ORDERED: HEPARIN SODIUM - IV 10,000 UNITS/10 ML VIAL OTHER PRN (20:30)
[2017-07-19] MEDS ORDERED: ALBUMIN 25% 25 GM/100 ML BAG IV PRN (20:30)
[2017-07-19] MEDS ORDERED: cloNIDine HCL 0.1 MG TAB PO PRN (20:30)
[2017-07-19] MEDS ORDERED: diphenhydrAMINE HCL 25 MG CAP PO PRN (20:30)
[2017-07-19] MEDS ORDERED: PROPOFOL 1000 MG/100 ML IV PRN (20:30)
[2017-07-19] MEDS: FAMOTIDINE 20 MG/2 ML VIAL IV PUSH SCH (20:48)
[2017-07-19] MEDS: DOCUSATE SODIUM 50 MG/SENNA 8.6 MG TAB PO SCH (20:48)
[2017-07-19] MEDS: fentaNYL 2,500 MCG/NS 250 ML IV PRN (20:48)
--- NOTE | 2017-07-19 20:50 | MB ---
cc: UMU WALTON M.D. DATE OF CONSULTATION: 07/19/2017 REASON FOR CONSULTATION: Seizure. HISTORY OF PRESENT ILLNESS: Mr. Wyatt is a 67-year-old man who was admitted to the psychiatry service with agitation, visual hallucinations possible dementia. Apparently this has been fairly rapidly progressive according to the family. There is a history of alcohol abuse many years ago but none recently. Earlier today he had two generalized tonic-clonic seizures and was brought to the Intensive Care Unit. Cerebyx has been loaded at 1000 mg. He is on Diprivan, intubated. No recurrent seizures. PAST MEDICAL HISTORY: 1. History of renal failure on dialysis. 2. Hypothyroidism. 3. Coronary artery disease. 4. Coronary artery bypass procedure. 5. Hypertension. 6. End-stage renal disease. 7. A-V fistula. CURRENT MEDICATIONS: 1. Diprivan. 2. Cerebyx 100 mg IV q. 8 hours after receiving the 1000 mg loading dose. 3. Famotidine. 4. Chlorhexidine. 5. Ativan as needed. 6. DuoNeb. 7. Senokot. 8. Lactulose. 9. Propofol. NEUROLOGIC EXAMINATION The patient is sedated nonresponsive. Pupils equal and reactive. There is no tonic-clonic activity. No posturing. CT scan of the brain done today is normal. LABORATORY DATA White count 6700, hemoglobin is 8.6, hematocrit 25.0%, platelet count 139,000. Sodium is 135, potassium 5.2, chloride is 94, BUN is 70, creatinine 9.35, GFR is 6, calcium 7.6, total bili 1.4, direct bilirubin 0.6, AST 20, ALT is 20, alk phos 184. The patient had an MRI of the brain done yesterday which is within normal limits. He had an EEG done today showing bilateral slowing. There is no evidence for any ongoing seizure activity. IMPRESSION Generalized tonic-clonic seizure, rapidly progressive dementia. This may be a degenerative dementia, rule out infectious source. Rule out cryptococcal meningitis, rule out Gary-Creutzfeldt disease. RECOMMENDATIONS I would like to recommend lumbar puncture to check CSF studies including the Gary-Creutzfeldt protein. Continue the Cerebyx. Will monitor levels. MD RAMYA Deshpande/ISRAEL /6:54 PM /8:37 PM
[2017-07-19] MEDS: RESP: ALBUTEROL 2.5 MG/IPRATROPIUM 0.5 MG NEB (SCH) INH (20:51)
[2017-07-19] MEDS: INSULIN ASPART SUPPLEMENTAL SCALE SQ SCH (21:00)
[2017-07-19] MEDS: RANOLAZINE 500 MG EXTENDED RELEASE TAB PO SCH (21:00)
[2017-07-19 21:39] LABS: INTERNATIONAL NORMALIZED RATIO 1.3 RATIO; PROTHROMBIN TIME - PATIENT 12.9 SEC (9.8-11.6)
[2017-07-19] MEDS: CHLORHEXIDINE 0.12% (ORAL KIT) 15 ML CUP MT SCH (23:23)
[2017-07-19] MEDS: SODIUM CHLORIDE 0.9% FLUSH 10 ML FLUSH IV FLUSH SCH (23:23)
[2017-07-19] MEDS: ATORVASTATIN 80 MG TAB PO SCH (23:23)
[2017-07-19] MEDS: CARVEDILOL 12.5 MG TAB PO SCH (23:23)
[2017-07-19] MEDS: FOSPHENYTOIN SODIUM 100 MG PE/2 ML VIAL IV SCH (23:24)
[2017-07-20] VITALS (21 sets, daily range): BP systolic 50–129; BP diastolic 48–62; PULSE 71–83; RESP 15–26; TEMP 98.8–100.8; O2SAT 92–100
[2017-07-20] MEDS: ACETAMINOPHEN 325 MG TAB PO PRN ×2 (01:11→22:38)
[2017-07-20] MEDS: RESP: ALBUTEROL 2.5 MG/IPRATROPIUM 0.5 MG NEB (SCH) INH ×4 (04:00→19:35)
[2017-07-20] MEDS: CHLORHEXIDINE GLUCONATE 2 % 1 PACK (2 CLOTHS) TOP SCH (04:00)
[2017-07-20 04:42] LABS: AUTOMATED NEUTROPHIL # 6.4 TH/MM3 (1.8-7.7); BASOPHIL % 0.3 % (0.0-2.0); EOSINOPHIL # 0.2 TH/MM3 (0-0.4); EOSINOPHIL % 2.7 % (0.0-4.0); HEMATOCRIT 26.7 % (39.0-51.0); LYMPH % 9.7 % (9.0-44.0); LYMPHOCYTE # 0.8 TH/MM3 (1.0-4.8); MEAN CELL VOLUME 90.4 FL (80.0-100.0); MEAN CORPUSCULAR HEMOGLOBIN 30.4 PG (27.0-34.0); MEAN CORPUSCULAR HGB CONC 33.7 % (32.0-36.0); MEAN PLATELET VOLUME 10.2 FL (7.0-11.0); MONO % 6.3 % (0.0-8.0); MONOCYTE # 0.5 TH/MM3 (0-0.9); PLATELET COUNT 141 TH/MM3 (150-450); RED BLOOD COUNT 2.95 MIL/MM3 (4.50-5.90); RED CELL DISTRIBUTION WIDTH 15.6 % (11.6-17.2); WHITE BLOOD COUNT 7.9 TH/MM3 (4.0-11.0)
[2017-07-20 05:21] LABS: BICARBONATE 32.8 MEQ/L (21.0-32.0); CALCIUM 7.8 MG/DL (8.5-10.1); CREATININE 6.41 MG/DL (0.60-1.30); MAGNESIUM 2.1 MG/DL (1.5-2.5); PHENYTOIN (DILANTIN) 3.7 MCG/ML (10.0-20.0); PHOSPHORUS 3.1 MG/DL (2.5-4.9)
[2017-07-20] MEDS: LORazepam 2 MG/ML VIAL IV PRN (05:24)
--- NOTE | 2017-07-20 05:55 | RADRPT ---
EXAM DATE/TIME: 07/20/2017 04:16 [facility] COMPARISON: CHEST SINGLE AP, July 19, 2017, 15:59. INDICATIONS : Shortness of breath, possible pulmonary disease. MEDICAL HISTORY : Cardiovascular disease. SURGICAL HISTORY : CABG. ENCOUNTER: Subsequent ACUITY: 4 - 6 days PAIN SCORE: Non-responsive. LOCATION: Bilateral chest FINDINGS: Board Certified Radiologist. This report was verified electronically. A single AP semierect view of the chest was obtained again demonstrates an endotracheal tube in place with the tip approximately 3 cm above the katarzyna. There has been interval placement of nasogastric t ube which is seen coursing through the esophagus into the stomach. The patient is status post median sternotomy the heart size is enlarged. There is no perihilar edema. There is mild patchy opacity righ t lung base. The known right lateral rib fractures again visualized. CONCLUSION: 1. Right rib fracture with patchy opacity in the right lung base. 2. Mild cardiomegaly with no evidence of pulmonary edema. 3. Interval placement of nasogastric tube. Godfrey Khoury MD on July 20, 2017 at 5:52
[2017-07-20] MEDS: LEVOTHYROXINE SODIUM 100 MCG TAB PO SCH (06:10)
[2017-07-20] MEDS: SEVELAMER CARBONATE 800 MG TAB PO SCH ×3 (08:00→17:00)
[2017-07-20] MEDS: INSULIN ASPART SUPPLEMENTAL SCALE SQ SCH ×4 (08:00→20:53)
[2017-07-20] MEDS: CHLORHEXIDINE 0.12% (ORAL KIT) 15 ML CUP MT SCH ×2 (08:00→20:53)
--- NOTE | 2017-07-20 08:07 | EKG ---
Date Performed: 07/19/2017 Time Performed: 18:38:19 PTAGE: 67 years EKG: Sinus rhythm ST DEVIATION AND MODERATE T-WAVE ABNORMALITY, CONSIDER ANTERIOR ISCHEMIA ABNORMAL ECG PREVIOUS TRACING : 07/15/2017 17.59 Since the prior tracing, there has been no significant godwin DOCTOR: Ruby Paris Interpretating Date/Time 07/20/2017 08:05:19
[2017-07-20] MEDS: CARVEDILOL 12.5 MG TAB PO SCH (08:23)
[2017-07-20] MEDS: EZETIMIBE 10 MG TAB PO SCH (08:24)
[2017-07-20] MEDS: RANOLAZINE 500 MG EXTENDED RELEASE TAB PO SCH ×2 (08:24→20:52)
[2017-07-20] MEDS: DOCUSATE SODIUM 50 MG/SENNA 8.6 MG TAB PO SCH ×2 (08:24→20:52)
[2017-07-20] MEDS: DEXTROSE 50% IN WATER 50 ML VIAL(D50) IV PUSH PRN (08:26)
[2017-07-20] MEDS: FOSPHENYTOIN SODIUM 100 MG PE/2 ML VIAL IV SCH ×2 (08:33→17:34)
[2017-07-20] MEDS: FAMOTIDINE 20 MG/2 ML VIAL IV PUSH SCH ×2 (08:33→20:53)
[2017-07-20] MEDS: ASPIRIN 81 MG CHEW TAB CHEW SCH (09:00)
[2017-07-20] MEDS: SODIUM CHLORIDE 0.9% FLUSH 10 ML FLUSH IV FLUSH SCH ×2 (09:00→20:51)
[2017-07-20] MEDS ORDERED: TERBUTALINE INJ 1 MG/ML AMP SQ PRN (09:45)
[2017-07-20] MEDS: PHENYLEPHRINE 40 MG in D5W 500 ML IV PRN ×2 (09:54→20:54)
--- NOTE | 2017-07-20 10:54 | RADRPT ---
EXAM DATE/TIME: 07/20/2017 08:54 [facility] COMPARISON: No previous studies available for comparison. EXTERNAL COMPARISON : [facility], CT Abdomen, December 11, 2014 INDICATIONS : Elevated alkaline phosphatase. MEDICAL HISTORY : Dementia. Renal failure. Dialysis. ETOH. SURGICAL HISTORY : CABG. Hemodialysis fistula, right arm. ENCOUNTER: Initial ACUITY: day PAIN SCORE: Nonresponsive. LOCATION: Right upper quadrant MEASUREMENTS: LIVER: 17.3 cm length COMMON DUCT: 13 mm RIGHT KIDNEY: 7.2 x 4.0 x 2.8 cm FINDINGS: LIVER: Normal echotexture without focal lesion or ductal dilatation. COMMON DUCT: Dilated with diameter approaching 13 mm. No filling defect appreciated. GALLBLADDER: At least one mobile stone present. No wall thickening or pericholecystic fluid. PANCREAS: The visualized portions are within normal limits. RIGHT KIDNEY: Atrophic and echogenic. Nonobstructing stone in the midpole region measuring just under a centimeter CONCLUSION: Gallstone. Moderate extrahepatic biliary ductal dilatation End-stage right kidney Juan Sarkar MD on July 20, 2017 at 10:46 Board Certified Radiologist. This report was verified electronically.
--- NOTE | 2017-07-20 13:57 | PD.CONS ---
HPI History of Present Illness This is a 67 year old with psychiatric history who was admitted to psych voluntarily with complaints of hallucinations and paranoia. Pt is on ventilator and therefore unable to obtain history from him, history has been obtained through chart review. Pt has reported history of seizure, note states he had a tonic-clonic seizure progressing to unresponsiveness while in psych, he was then a Halicat and is now in ICU on sedation and mechanically ventilated via ETT. GI has been consulted to evaluate pt for US findings --> Moderate extrahepatic biliary ductal dilation (approaching 13 mm). End-stage right kidney. Labs reveal elevated Alk phos and total bilirubin. LFTs currently WNL. (Klaudia Harding) PFSH Past Medical History Seizure disorder ESRD on dialysis M W F HTN Hypothyroid Hyperlipidemia ? Dementia Past Surgical History CABG (Klaudia Harding) Coded Allergies: No Known Allergies (Unverified , 07/15/17) Social History Received information from earlier documentation: ETOH-occasional Denies tobacco Denies illicit drug use (Klaudia Harding) Review of Systems unable to obtain (Klaudia Harding) GI Exam Vitals I&O Vital Signs Date Time Temp Pulse Resp B/P (MAP) Pulse Ox O2 Delivery O2 Flow Rate FiO2 07/20/17 13:14 100 40 07/20/17 10:30 40 07/20/17 10:15 87/49 07/20/17 10:05 86/50 07/20/17 10:00 82 07/20/17 09:54 77 85/49 07/20/17 08:00 80 07/20/17 08:00 98.8 80 18 50/62 (58) 100 07/20/17 08:00 30 07/20/17 07:50 96 40 07/20/17 06:00 73 07/20/17 04:44 94 40 07/20/17 04:00 71 07/20/17 04:00 100.8 71 16 92/54 (67) 100 07/20/17 02:00 76 07/20/17 01:09 100 50 07/20/17 00:00 74 07/20/17 00:00 100.1 74 15 129/62 (84) 100 07/19/17 22:12 100 50 07/19/17 22:00 71 07/19/17 20:00 98.7 73 32 91/57 (68) 100 07/19/17 20:00 73 07/19/17 19:20 100 50 07/19/17 18:00 98.7 63 18 98/53 (68) 100 07/19/17 18:00 67 07/19/17 17:00 98.6 69 18 127/59 (81) 100 07/19/17 16:40 100 100 07/19/17 15:10 100 50 I/O 07/19/17 07/19/17 07/19/17 07/20/17 07/20/17 07/20/17 07:00 15:00 23:00 07:00 15:00 23:00 Intake Total 70 ml 126 ml Output Total 0 ml Balance 70 ml 126 ml Intake IV Total 70 ml 126 ml Output Urine Total 0 ml # Voids 0 # Bowel Movements 0 0 Imaging Last Impressions Chest X-Ray 07/20/17 0600 Signed Impressions: Service Date/Time: June 04:16 - CONCLUSION: 1. Right rib fracture with patchy opacity in the right lung base. 2. Mild cardiomegaly with no evidence of pulmonary edema. 3. Interval placement of nasogastric tube. Godfrey Khoury MD Gall Bladder Ultrasound 07/20/17 0000 Signed Impressions: Service Date/Time: June 08:54 - CONCLUSION: Gallstone. Moderate extrahepatic biliary ductal dilatation End-stage right kidney Juan Sarkar MD Head CT 07/19/17 0000 Signed Impressions: Service Date/Time: Wednesday, July 19, 2017 17:39 - CONCLUSION: Normal examination. Juan Sarkar MD Laboratory Test 07/19/17 16:02 07/19/17 17:57 07/19/17 18:05 07/19/17 18:27 Blood Gas Puncture Site RT BRACHIAL Blood Gas Patient Temperature 98.6 Blood Gas HCO3 28 mmol/L Blood Gas Base Excess 4.4 mmol/L Blood Gas Oxygen Saturation 97 % Arterial Blood pH 7.45 Arterial Blood Partial Pressure CO2 41 mmHg Arterial Blood Partial Pressure O2 479 mmHg Arterial Blood Oxygen Content 13.4 Vol % Arterial Blood Carboxyhemoglobin 0.6 % Arterial Blood Methemoglobin 1.8 % Blood Gas Hemoglobin 8.9 G/DL Oxygen Delivery Device VENTILATOR Blood Gas Ventilator Setting Blood Gas Inspired Oxygen 100 % Nasal Screen MRSA (PCR) MRSA NOT DETECTED White Blood Count 6.7 TH/MM3 Red Blood Count 2.80 MIL/MM3 Hemoglobin 8.6 GM/DL Hematocrit 25.0 % Mean Corpuscular Volume 89.3 FL Mean Corpuscular Hemoglobin 30.6 PG Mean Corpuscular Hemoglobin Concent 34.3 % Red Cell Distribution Width 15.8 % Platelet Count 139 TH/MM3 Mean Platelet Volume 10.3 FL Neutrophils (%) (Auto) 75.8 % Lymphocytes (%) (Auto) 13.6 % Monocytes (%) (Auto) 7.8 % Eosinophils (%) (Auto) 2.5 % Basophils (%) (Auto) 0.3 % Neutrophils # (Auto) 5.1 TH/MM3 Lymphocytes # (Auto) 0.9 TH/MM3 Monocytes # (Auto) 0.5 TH/MM3 Eosinophils # (Auto) 0.2 TH/MM3 Basophils # (Auto) 0.0 TH/MM3 CBC Comment DIFF FINAL Differential Comment Prothrombin Time 12.9 SEC Prothromb Time International Ratio 1.3 RATIO Activated Partial Thromboplast Time 34.4 SEC Blood Urea Nitrogen 70 MG/DL Creatinine 9.35 MG/DL Random Glucose 98 MG/DL Total Protein 6.6 GM/DL Albumin 3.0 GM/DL Calcium Level 7.6 MG/DL Phosphorus Level 3.1 MG/DL Magnesium Level 2.1 MG/DL Alkaline Phosphatase 193 U/L Aspartate Amino Transf (AST/SGOT) 24 U/L Alanine Aminotransferase (ALT/SGPT) 18 U/L Total Bilirubin 1.5 MG/DL Sodium Level 135 MEQ/L Potassium Level 5.3 MEQ/L Chloride Level 94 MEQ/L Carbon Dioxide Level 31.1 MEQ/L Anion Gap 10 MEQ/L Estimat Glomerular Filtration Rate 6 ML/MIN Direct Bilirubin 0.6 MG/DL Indirect Bilirubin 0.8 MG/DL Total Creatine Kinase 918 U/L Creatine Kinase MB 1.5 NG/ML Creatine Kinase MB % 0.2 % B-Type Natriuretic Peptide 1007 PG/ML Free Thyroxine 1.15 NG/DL Free Triiodothyronine (T3) pg/dL 0.82 PG/ML Thyroid Stimulating Hormone 3rd Gen 0.826 uIU/ML Random Cortisol 18.0 MCG/DL Test 07/19/17 18:30 07/20/17 03:38 07/20/17 05:08 Ammonia LESS THAN 10 MCMOL/L White Blood Count 7.9 TH/MM3 Red Blood Count 2.95 MIL/MM3 Hemoglobin 9.0 GM/DL Hematocrit 26.7 % Mean Corpuscular Volume 90.4 FL Mean Corpuscular Hemoglobin 30.4 PG Mean Corpuscular Hemoglobin Concent 33.7 % Red Cell Distribution Width 15.6 % Platelet Count 141 TH/MM3 Mean Platelet Volume 10.2 FL Neutrophils (%) (Auto) 81.0 % Lymphocytes (%) (Auto) 9.7 % Monocytes (%) (Auto) 6.3 % Eosinophils (%) (Auto) 2.7 % Basophils (%) (Auto) 0.3 % Neutrophils # (Auto) 6.4 TH/MM3 Lymphocytes # (Auto) 0.8 TH/MM3 Monocytes # (Auto) 0.5 TH/MM3 Eosinophils # (Auto) 0.2 TH/MM3 Basophils # (Auto) 0.0 TH/MM3 CBC Comment DIFF FINAL Differential Comment Blood Urea Nitrogen 37 MG/DL Creatinine 6.41 MG/DL Random Glucose 59 MG/DL Calcium Level 7.8 MG/DL Phosphorus Level 3.1 MG/DL Magnesium Level 2.1 MG/DL Sodium Level 139 MEQ/L Potassium Level 4.4 MEQ/L Chloride Level 99 MEQ/L Carbon Dioxide Level 32.8 MEQ/L Anion Gap 7 MEQ/L Estimat Glomerular Filtration Rate 9 ML/MIN Total Creatine Kinase 772 U/L Creatine Kinase MB 1.0 NG/ML Creatine Kinase MB % 0.1 % Phenytoin (Dilantin) Level 3.7 MCG/ML Blood Gas Puncture Site LT BRACHIAL Blood Gas Patient Temperature 98.6 Blood Gas HCO3 31 mmol/L Blood Gas Base Excess 6.8 mmol/L Blood Gas Oxygen Saturation 94 % Arterial Blood pH 7.42 Arterial Blood Partial Pressure CO2 49 mmHg Arterial Blood Partial Pressure O2 98 mmHg Arterial Blood Oxygen Content 11.3 Vol % Arterial Blood Carboxyhemoglobin 1.0 % Arterial Blood Methemoglobin 2.0 % Blood Gas Hemoglobin 8.4 G/DL Oxygen Delivery Device VENTILATOR Blood Gas Ventilator Setting PRVC15/500/1.0/+5 Blood Gas Inspired Oxygen 40 % Physical Examination HEENT: Normocephalic; atraumatic; no jaundice. CHEST: Synchronized with vent. Mechanically ventilated via ETT CARDIAC: RRR ABDOMEN: Soft, nondistended, nontender; bowel sounds active EXTREMITIES: No clubbing, cyanosis, or edema. SKIN: Normal; no rash; no jaundice. WOOD [employer]AT[employer]DER: Awake, opens eyes (Klaudia Harding) Assessment and Plan Plan Assessment: - Biliary duct dilation with elevation of Alk phos and T bili US gallbladder (07/20) --> Moderate extrahepatic biliary ductal dilation. Alk phos-193 T bili-1.5 LFTs WNL. Unable to obtain further GI history from pt or review of symptoms, pt currently on ventilator and unable to answer questions. Exam reveals soft, nondistended abdomen, no jaundice. - ESRD- hemodialysis M,W,F - Seizure disorder- neurology on case Plan: MRCP W/O contrast Monitor labs Further recommendations based on findings of above Pt has been seen and examined by myself and Dr. Ruiz and this note is written on his behalf (Klaudia Harding) Physician Comments Seen and examined with ACCESSIONER, unable to obtain much history. Pelvic u/s shows dilated cbd and gall stone. Elevated alk phos. CKD on dialysis. MRCP without contrast ordered. Discussed with Dr. Luis. Thank you (Arabella Ruiz MD) Klaudia Harding Jul 20, 2017 13:57 Arabella Ruiz MD Jul 20, 2017 15:59
--- NOTE | 2017-07-20 14:49 | HHI.CCPN ---
Subjective Remarks/Hospital Course This is a 67-year-old male, that was admitted to inpatient psychiatry unit. Per report, the patient has a seizure disorder, and previous attempts have been made to obtain EEG. Dr. Salas, neurologist. The patient had been having falls for the past several days, and subsequently had a laceration in the posterior scalp. Today the patient was noted to be in the day room having a tonic-clonic seizure, and subsequent unresponsiveness. A Halicat was initiated , and the patient was transferred to [facility]. Upon my evaluation the patient was nonresponsive, O2 saturation was 97%, the patient was unable to protect airway. The patient was emergently intubated, and placed on a ventilator. A stat chest x-ray was performed which showed a posterolateral 7th rib fracture. A stat CT of the brain was obtained, results negative. Stat EEG was obtained prior to initiation of sedation, the patient was then loaded with fosphenytoin. Critical care is requested for management. SUBJ 07/20: Patient remains intubated off, follows commands intermittently. He follows commands, EEG report is pending at this time. LP ordered by Dr. Salas today. GI consulted for gall stone and dilated extrahepatic bile duct. Developed hypotension started on Chris-Synephrine currently at 80 mcg/min Objective Vital Signs Date Time Temp Pulse Resp B/P (MAP) Pulse Ox O2 Delivery O2 Flow Rate FiO2 07/20/17 13:14 100 40 07/20/17 10:15 87/49 07/20/17 10:00 82 07/20/17 08:00 98.8 18 Intake and Output 07/20/17 07/20/17 07/21/17 08:00 16:00 00:00 Intake Total 126 ml Balance 126 ml Result Diagram: 07/20/17 0338 07/20/17 0338 Other Results Laboratory Tests Test 07/19/17 16:02 07/20/17 05:08 Blood Gas Puncture Site RT BRACHIAL LT BRACHIAL Blood Gas Patient Temperature 98.6 98.6 Blood Gas HCO3 28 mmol/L (22-26) 31 mmol/L (22-26) Blood Gas Base Excess 4.4 mmol/L (-2-2) 6.8 mmol/L (-2-2) Blood Gas Oxygen Saturation 97 % (90-100) 94 % (90-100) Arterial Blood pH 7.45 (7.380-7.420) 7.42 (7.380-7.420) Arterial Blood Partial Pressure CO2 41 mmHg (38-42) 49 mmHg (38-42) Arterial Blood Partial Pressure O2 479 mmHg (61-120) 98 mmHg (61-120) Arterial Blood Oxygen Content 13.4 Vol % (12.0-20.0) 11.3 Vol % (12.0-20.0) Arterial Blood Carboxyhemoglobin 0.6 % (0-4) 1.0 % (0-4) Arterial Blood Methemoglobin 1.8 % (0-2) 2.0 % (0-2) Blood Gas Hemoglobin 8.9 G/DL (12.0-16.0) 8.4 G/DL (12.0-16.0) Oxygen Delivery Device VENTILATOR VENTILATOR Blood Gas Ventilator Setting PRVC15/500/1.0/+5 Blood Gas Inspired Oxygen 100 % 40 % Imaging Last Impressions Head CT 07/19/17 0000 Signed Impressions: Service Date/Time: Wednesday, July 19, 2017 17:39 - CONCLUSION: Normal examination. Juan Sarkar MD Chest X-Ray 07/19/17 0000 Signed Impressions: Service Date/Time: Wednesday, July 19, 2017 15:59 - CONCLUSION: 1. ET tube is at the level of the katarzyna and needs to be withdrawn 2 cm. 2. Mildly displaced fracture of the posterolateral right 7th rib. Klaus Schneider MD Objective Remarks GENERAL: Critically ill-appearing well-developed well-nourished male currently intubated, awake intermittently follows commands SKIN: Warm and dry. HEAD: Atraumatic. Normocephalic. EYES: Pupils equal and round. No scleral icterus. No injection or drainage. ENT: No nasal bleeding or discharge. Mucous membranes pink and moist. NECK: Trachea midline. No JVD. CARDIOVASCULAR: Normal rate, regular rhythm. RESPIRATORY: No accessory muscle use. Clear to auscultation. Breath sounds equal bilaterally. GASTROINTESTINAL: Abdomen soft, non-tender, nondistended. No guarding. MUSCULOSKELETAL: Extremities without clubbing, cyanosis, or edema. No obvious deformities. NEUROLOGICAL: RASS -1. Moving extremities 4 follows commands intermittently. No focal deficits A/P Assessment and Plan This is a 67 year old male emergently intubated for airway protection after experiencing active seizures. The patient after imaging now has a mildly displaced 7th rib fracture. Patient is critically ill. Plan by systems: Neurologic: Seizure disorder Mood disorder Dementia Neurology following- Dr. Salas. LP, EEG report pending Fosphenytoin 1 g load, then fosphenytoin 100 mg TID Ativan for active seizures Seizure precautions Ammonia level <10 Postictal state improved Respiratory: Acute hypoxemic respiratory failure Patient intubated with 8.0 ETT, initially 24 cm at the lip, retracted to 22 cm @ lip post CXR 07/19 chest [id number] seventh rib fracture Wean FiO2, to maintain O2sat greater than 92% Ventilator bundle Duo nebs every 6 hours scheduled, every 2 hours when necessary Begin CPAP trials after EEG, LP, and MRCP completed hopefully today Cardiovascular: Hypotension on pressors Cardiovascular disease History of hypertension Chris-Synephrine at 80 mcg/min to keep map above 65 Continue previous medications rosuvastatin 40 mg/at bedtime, continue ASA 81 mg/ day continue Ranexa ER 1gm BID, Hold Isordil 60 mg/day, Carvedilol 12.5 BID due to hypotension Patient's previous medication includes losartan, Isordil will hold for now Renal: ESRD Nephrology following-Dr. Hernadez Hemodialysis per nephrology -- Strict I/Os Continue previous meds FEN/GI: Dilated extrahepatic biliary duct, gallstone Electrolyte derangement Hyperlipidemia Check MRCP, GI consult Replete electrolytes per ICU protocol and nephrology's approval Potassium level 5.3-patient undergoing IHD tonight Continue Sevlamer 800 mg TID Continue Zetia 10mg/d Alkaline phosphatase noted elevation Obtain gallbladder ultrasound-Dilated extrahepatic biliary duct, gallstone Creatinine kinase 918 F/U LFT's Heme/ID: Monitor CBC Obtain cultures if clinically indicated Endocrine: Hypothyroidism Continue levothyroxine 100 mg/day Glucose monitoring per ICU protocol -- SSI Prophylaxis: GI Prophylaxis Famotidine BID DVT Prophylaxis -- SCDs Heparin BID Lines: Peripheral IVs 2. Central line if indicated Dispo: my billing statement This patient remains critically ill with one or more organ systems which are or may become a threat to life. I have spent in excess of 35 minutes discontinuously in the care and management of this patient. This time is exclusive of procedures, and includes, but is not limited to, evaluation of the patient, review of the medical record, discussions with family, consultants, nursing staff, or respiratory therapy, and documentation in the medical record. Patient is critically currently hypotensive requiring Chris-Synephrine. However mentation seems to be improving. Lumbar puncture pending, MRCP per Janelle Brock MD Jul 20, 2017 14:49
--- NOTE | 2017-07-20 15:05 | HHI.NPPN ---
Subjective History of Present Illness 67 year old with ESRD, on Hemodialysis, admitted with seizures Objective Data Data Vital Signs Date Time Temp Pulse Resp B/P (MAP) Pulse Ox O2 Delivery O2 Flow Rate FiO2 07/20/17 13:14 100 40 07/20/17 10:30 40 07/20/17 10:15 87/49 07/20/17 10:05 86/50 07/20/17 10:00 82 07/20/17 09:54 77 85/49 07/20/17 08:00 80 07/20/17 08:00 98.8 80 18 50/62 (58) 100 07/20/17 08:00 30 07/20/17 07:50 96 40 07/20/17 06:00 73 07/20/17 04:44 94 40 07/20/17 04:00 71 07/20/17 04:00 100.8 71 16 92/54 (67) 100 07/20/17 02:00 76 07/20/17 01:09 100 50 07/20/17 00:00 74 07/20/17 00:00 100.1 74 15 129/62 (84) 100 07/19/17 22:12 100 50 07/19/17 22:00 71 07/19/17 20:00 98.7 73 32 91/57 (68) 100 07/19/17 20:00 73 07/19/17 19:20 100 50 07/19/17 18:00 98.7 63 18 98/53 (68) 100 07/19/17 18:00 67 07/19/17 17:00 98.6 69 18 127/59 (81) 100 07/19/17 16:40 100 100 07/19/17 15:10 100 50 -: 07/20/17 0338 07/20/17 0338 Physical Exam General Appearance: Well Developed Pulmonary Resp Exam: Clear Bilaterally Cardiology CV Exam: Regular Gastrointestinal/Abdomen GI Exam: Soft, Non-Tender, Bowel Sounds Present Extremeties Extremities Exam: No Edema Assessment/Plan Problem List: (1) ESRD (end stage renal disease) on dialysis ICD Codes: N18.6 - End stage renal disease; Z99.2 - Dependence on renal dialysis Plan: we plan to do HD on MWF next HD in am he needs MCRP (2) Seizures ICD Codes: R56.9 - Unspecified convulsions Plan: Neurology following on Joshua Butler MD Jul 20, 2017 15:05
--- NOTE | 2017-07-20 15:13 | PD.RAD ---
Post Procedure Progress Note Pre Procedure Diagnosis: (1) DEMENTIA IN OTH DISEASES CLASSD ELSWHR W BEHAVIORAL DISTURB (2) Seizures Post Procedure Diagnosis: (1) DEMENTIA IN OTH DISEASES CLASSD ELSWHR W BEHAVIORAL DISTURB (2) Seizures Procedure Date: Jul 20, 2017 Supervising Radiologist: Klaus Haley JR Proceduralist/Assist: Goran Weeks, RT(R), Duarte Barnett, RT(R), Susanne Mendoza, RT(R) Anesthesia: Local Plan of Activity Patient to Unit: Critical Care Patient Condition: Fair See PACS Report for procedural detail/treatment Spinal Procedure Lumbar Puncture L4-L5 Fluid Removal (CCs): 11 Fluid Description: Clear Puncture Time: 14:59 Findings: LP under fluoro. Clear CSF. Sent to lab. Jr. Tera,Klaus Harris MD Jul 20, 2017 15:13
--- NOTE | 2017-07-20 15:24 | RADRPT ---
EXAM DATE/TIME: 07/20/2017 14:34 [facility] COMPARISON: No previous studies available for comparison. INDICATIONS : Patient presents with visual hallucinations and seizure disorder in need of lumbar puncture. MEDICAL HISTORY : Renal failure on dialysis Hypothyroidism Coronary artery disease Hypertension End stage renal disease A-V fistula SURGICAL HISTORY : Coronary srtery bypass ENCOUNTER: Initial ACUITY: 1 day PAIN SCORE: LUMBAR PUNCTURE TIME: 1452 hours FLUORO TIME: 2 minutes IMAGE SERIES: 1 ACCESS LEVEL: L3-4 FLUID: 11 cc of clear CSF was collected and sent to the laboratory for analysis. PROCEDURE : 1. Fluoroscopic guided lumbar puncture. The risks, benefits and alternatives to the procedure were explained and verbal and written consent w as obtained. The site was prepped in sterile fashion. Full sterile technique was used, including ca p, mask, sterile gloves and gown and a large sterile sheet. Hand hygiene and 2% chlorhexidine and/or betadine/alcohol prep was utilized per protocol for cutaneous antisepsis. The skin and subcutaneous tissues were infiltrated with local anesthetic solution. With fluoroscopic guidance the lumbar thecal sac was punctured at the level above. The fluid describ ed above was removed without difficulty. The patient tolerated the procedure well and there were no complications. CONCLUSION: Uncomplicated fluoroscopically guided lumbar puncture. Klaus Haley Jr., MD on July 20, 2017 at 15:22 Board Certified Radiologist. This report was verified electronically.
[2017-07-20 15:54] LABS: TOTAL PROTEIN,CSF 40.3 MG/DL (15.0-45.0)
[2017-07-20 17:23] LABS: CSF LYMPHOCYTES 29 %; CSF MONOCYTES 25 %; CSF NEUTROPHILS 46 %
[2017-07-20 17:24] LABS: SUPERNATE COLOR TUBE #1 CLEAR (CLEAR); VOLUME TUBE # 1 3.2 ML
[2017-07-20 17:27] LABS: RBC TUBE #4 277 /MM3; WBC TUBE #4 48 /MM3 (0-10)
[2017-07-20] MEDS: LORazepam 2 MG/ML VIAL IV PUSH PRN (17:56)
[2017-07-20] MEDS: DEXAMETHASONE SOD PHOS 20 MG/5 ML VIAL IV PUSH SCH (18:07)
[2017-07-20] MEDS ORDERED: LORazepam 2 MG/ML VIAL IV PRN (18:45)
--- NOTE | 2017-07-20 18:59 | HHI.PR ---
Review/Management Diagnosis seizure progressive dementia csf pleocytosis--possible post ictal phenomenon. r/o encephalitis, r/o cryptococcal meningitis, Plan empiric rocephin and acyclovir (dose corrected for renal failure) pending csf cultures and HSV pcr ID consult follow up all csf results increase cerebyx due to low phenytoin level Diagnosis/Plan: Subjective Subjective Comments No acute events reported No recurrent sz. Active Medications Current Medications Medications (Trade) Dose Ordered Sig/Isis Route Start Time Stop Time Status Last Admin (Ativan Inj) 1 mg Q6H PRN IV 07/19/17 16:15 07/20/17 05:24 (NS Flush) 2 ml UNSCH PRN IV FLUSH 07/19/17 16:30 (NS Flush) 2 ml BID IV FLUSH 07/19/17 21:00 07/20/17 09:00 (Tylenol) 650 mg Q6H PRN PO 07/19/17 16:30 07/20/17 01:11 (Pepcid Inj) 10 mg Q12HR IV PUSH 07/19/17 21:00 07/20/17 08:33 (Ativan Inj) 2 mg Q4H PRN IV PUSH 07/19/17 16:30 07/20/17 17:56 (Duoneb Neb) 1 ampule Q6HR NEB INH 07/19/17 22:00 07/20/17 16:12 (Duoneb Neb) 1 ampule Q2HR NEB PRN INH 07/19/17 16:30 Miscellaneous Information 1 Q361D XX 07/19/17 16:30 (Chlorhexidine 2% Cloth) 3 pack Taper DAILY@04 TOP 07/20/17 04:00 07/16/18 03:59 (Chlorhexidine 2% Cloth) 3 pack UNSCH PRN TOP 07/19/17 16:30 (Sommer-Colace) 1 tab BID PO 07/19/17 21:00 07/20/17 08:24 (Milk Of Magnesia Liq) 30 ml Q12H PRN PO 07/19/17 16:30 (Senokot) 17.2 mg Q12H PRN PO 07/19/17 16:30 (Dulcolax Supp) 10 mg DAILY PRN RECTAL 07/19/17 16:30 (Lactulose Liq) 30 ml DAILY PRN PO 07/19/17 16:30 (Peridex 0.12% Liq) 15 ml BID@08,20 MT 07/19/17 20:00 07/20/17 08:00 Fentanyl Citrate 250 ml @ 5 mls/hr TITRATE PRN IV 07/19/17 20:30 07/19/17 20:48 Propofol 100 ml @ 2.034 mls/ hr TITRATE PRN IV 07/19/17 20:30 (Synthroid) 100 mcg DAILY@0600 PO 07/20/17 06:00 07/20/17 06:10 (Coreg) 12.5 mg Q12HR PO 07/19/17 21:00 Future Hold 07/19/17 23:23 (Renvela) 800 mg TIDAC PO 07/20/17 08:00 (Aspirin Chew) 81 mg DAILY CHEW 07/20/17 09:00 07/20/17 09:00 (Zetia) 10 mg DAILY PO 07/20/17 09:00 07/20/17 08:24 (Lipitor) 80 mg HS PO 07/19/17 21:00 07/19/17 23:23 (Ranexa) 1,000 mg Q12HR PO 07/19/17 21:00 Sodium Chloride 1,000 ml @ 0 mls/hr TITRATE PRN OTHER 07/19/17 20:30 (Heparin Inj) 8,000 units UNSCH PRN IV FLUSH 07/19/17 20:30 Sodium Chloride 1,000 ml @ 200 mls/hr Q5H PRN OTHER 07/19/17 20:30 Sodium Chloride 200 ml @ 0 mls/hr UNSCH PRN IV 07/19/17 20:30 (Mannitol Inj) 12.5 gm UNSCH PRN IV PUSH 07/19/17 20:30 Albumin Human 100 ml @ 60 mls/hr UNSCH PRN IV 07/19/17 20:30 (NS Flush) 5 ml UNSCH PRN IV FLUSH 07/19/17 20:30 (Heparin Inj) Dwell Heparin to f... UNSCH PRN OTHER 07/19/17 20:30 (Gentamicin Inj) 10 mg UNSCH PRN OTHER 07/19/17 20:30 (D50w (Vial) Inj) 50 ml UNSCH PRN IV PUSH 07/19/17 20:30 07/20/17 08:26 (Glucagon Inj) 1 mg UNSCH PRN OTHER 07/19/17 20:30 (NovoLOG SUPPLEMENTAL SCALE) 1 ACHS SLIDING SCALE SQ 07/19/17 21:00 (Gelfoam 12 Mm/7 Mm Top) 1 foam UNSCH PRN TOPICAL 07/19/17 20:30 (Zofran Inj) 4 mg UNSCH PRN IV PUSH 07/19/17 20:30 (Tylenol) 650 mg UNSCH X1 PRN PO 07/19/17 20:30 08/18/17 20:29 (Benadryl) 25 mg UNSCH PRN PO 07/19/17 20:30 (Nitrostat Sl) 0.4 mg UNSCH PRN SL 07/19/17 20:30 (Catapres) 0.1 mg UNSCH PRN PO 07/19/17 20:30 Phenylephrine HCl 40 mg/Dextrose 500 ml @ 30 mls/hr TITRATE PRN IV 07/20/17 09:45 07/20/17 09:54 (Brethine Inj) 1 mg UNSCH PRN SQ 07/20/17 09:45 (Decadron Inj) 6 mg Q6HR IV PUSH 07/20/17 18:00 07/21/17 17:59 07/20/17 18:07 (Ativan Inj) 2 mg Q4H PRN IV 07/20/17 18:45 (Cerebyx Inj) 100 mgpe Q6HR IV 07/21/17 00:00 UNV (Cerebyx Inj) 500 mgpe ONCE ONCE IV 07/20/17 19:00 07/20/17 19:01 UNV Allergies Allergies Coded Allergies No Known Allergies (Unverified07/15/17) Exam I&O / VS 07/20/17 07/20/17 07/21/17 15:00 23:00 07:00 Output Total 0 ml Balance 0 ml Output Urine Total 0 ml Stool Total 0 ml # Bowel Movements 0 Vital Signs Date Time Temp Pulse Resp B/P (MAP) Pulse Ox O2 Delivery O2 Flow Rate FiO2 07/20/17 18:15 100 100 07/20/17 18:00 83 07/20/17 17:43 85 07/20/17 17:05 100 40 07/20/17 17:00 99.0 79 26 106/58 (74) 100 07/20/17 17:00 40 07/20/17 17:00 83 07/20/17 16:14 92 40 07/20/17 14:00 78 07/20/17 14:00 86 111/58 07/20/17 13:14 100 40 07/20/17 12:45 84 98/56 07/20/17 12:00 99.0 79 26 82/48 (59) 100 07/20/17 12:00 82 07/20/17 12:00 30 07/20/17 12:00 84 98/59 07/20/17 11:25 84 110/55 07/20/17 11:15 83 116/56 07/20/17 11:00 82 137/62 07/20/17 10:45 70 94/50 07/20/17 10:30 40 07/20/17 10:30 71 86/49 07/20/17 10:15 87/49 07/20/17 10:05 86/50 07/20/17 10:00 82 07/20/17 09:54 77 85/49 07/20/17 08:00 80 07/20/17 08:00 98.8 80 18 50/62 (58) 100 07/20/17 08:00 30 07/20/17 07:50 96 40 07/20/17 06:00 73 07/20/17 04:44 94 40 07/20/17 04:00 71 07/20/17 04:00 100.8 71 16 92/54 (67) 100 07/20/17 02:00 76 07/20/17 01:09 100 50 07/20/17 00:00 74 07/20/17 00:00 100.1 74 15 129/62 (84) 100 07/19/17 22:12 100 50 07/19/17 22:00 71 07/19/17 20:00 98.7 73 32 91/57 (68) 100 07/19/17 20:00 73 07/19/17 19:20 100 50 Exam Comments sedated not responsive PERRL, EOM intact to dolls MOTOR--no spontaneous movement Objective Micro and Labs Laboratory Tests Test 07/20/17 03:38 07/20/17 05:08 07/20/17 14:58 White Blood Count 7.9 Red Blood Count 2.95 Hemoglobin 9.0 Hematocrit 26.7 Mean Corpuscular Volume 90.4 Mean Corpuscular Hemoglobin 30.4 Mean Corpuscular Hemoglobin Concent 33.7 Red Cell Distribution Width 15.6 Platelet Count 141 Mean Platelet Volume 10.2 Neutrophils (%) (Auto) 81.0 Lymphocytes (%) (Auto) 9.7 Monocytes (%) (Auto) 6.3 Eosinophils (%) (Auto) 2.7 Basophils (%) (Auto) 0.3 Neutrophils # (Auto) 6.4 Lymphocytes # (Auto) 0.8 Monocytes # (Auto) 0.5 Eosinophils # (Auto) 0.2 Basophils # (Auto) 0.0 CBC Comment DIFF FINAL Differential Comment Blood Urea Nitrogen 37 Creatinine 6.41 Random Glucose 59 Calcium Level 7.8 Phosphorus Level 3.1 Magnesium Level 2.1 Sodium Level 139 Potassium Level 4.4 Chloride Level 99 Carbon Dioxide Level 32.8 Anion Gap 7 Estimat Glomerular Filtration Rate 9 Total Creatine Kinase 772 Creatine Kinase MB 1.0 Creatine Kinase MB % 0.1 Phenytoin (Dilantin) Level 3.7 Blood Gas Puncture Site LT BRACHIAL Blood Gas Patient Temperature 98.6 Blood Gas HCO3 31 Blood Gas Base Excess 6.8 Blood Gas Oxygen Saturation 94 Arterial Blood pH 7.42 Arterial Blood Partial Pressure CO2 49 Arterial Blood Partial Pressure O2 98 Arterial Blood Oxygen Content 11.3 Arterial Blood Carboxyhemoglobin 1.0 Arterial Blood Methemoglobin 2.0 Blood Gas Hemoglobin 8.4 Oxygen Delivery Device VENTILATOR Blood Gas Ventilator Setting PRVC15/500/1.0/+5 Blood Gas Inspired Oxygen 40 CSF Volume (Tube 1) 3.2 CSF Supernatant Color (tube 1) CLEAR CSF Gross Blood (Tube 1) TRACE CSF Volume (Tube 2) 2.5 CSF Supernatant Color (tube 2) CLEAR CSF Gross Blood (Tube 2) TRACE CSF Volume (Tube 3) 2.5 CSF Supernatant Color (tube 3) CLEAR CSF Volume (Tube 4) 3.8 CSF Supernatant Color (tube 4) CLEAR CSF WBC (Tube 4) 48 CSF RBC (Tube 4) 277 CSF Neutrophils 46 CSF Lymphocytes 29 CSF Monocytes 25 CSF Glucose 38 CSF Total Protein 40.3 Date/Time Source Procedure Growth Status 07/20/17 14:58 Cerebral Spinal Fluid Lumbar Puncture Fungal Smear - Final NO FUNGAL ELEMENTS SEEN. Resulted 07/20/17 14:58 Cerebral Spinal Fluid Lumbar Puncture Fungal Culture Pending Resulted Jameel Salas MD PhD Jul 20, 2017 18:59
[2017-07-20] MEDS ORDERED: FOSPHENYTOIN SODIUM 100 MG PE/2 ML VIAL IV ONE (19:00)
[2017-07-20] MEDS ORDERED: FOSPHENYTOIN INJ 500 MGPE in SODIUM CHLORIDE 0.9% INJ 50 ML IV ONE (19:15)
[2017-07-20] MEDS: ACYCLOVIR IV SCH (20:52)
[2017-07-20] MEDS: SODIUM CHLORIDE 0.9% IV SCH (20:52)
[2017-07-20] MEDS: ATORVASTATIN 80 MG TAB PO SCH (20:52)
[2017-07-20] MEDS: cefTRIAXone INJ 1,000 MG in SODIUM CHLORIDE 0.9% INJ 100 ML IV SCH (20:52)
[2017-07-20] MEDS: fentaNYL 2,500 MCG/NS 250 ML IV PRN (20:54)
[2017-07-21] VITALS (16 sets, daily range): BP systolic 90–129; BP diastolic 54–64; PULSE 61–128; RESP 15–19; TEMP 98.8–99.9; O2SAT 99–100
[2017-07-21] MEDS: FOSPHENYTOIN SODIUM 100 MG PE/2 ML VIAL IV SCH ×5 (01:36→23:58)
[2017-07-21] MEDS: DEXAMETHASONE SOD PHOS 20 MG/5 ML VIAL IV PUSH SCH ×3 (01:37→11:30)
[2017-07-21] MEDS: RESP: ALBUTEROL 2.5 MG/IPRATROPIUM 0.5 MG NEB (SCH) INH ×4 (03:21→19:18)
[2017-07-21] MEDS: CHLORHEXIDINE GLUCONATE 2 % 1 PACK (2 CLOTHS) TOP SCH (05:35)
[2017-07-21] MEDS: fentaNYL 2,500 MCG/NS 250 ML IV PRN ×2 (05:36→23:24)
[2017-07-21] MEDS: LEVOTHYROXINE SODIUM 100 MCG TAB PO SCH (05:36)
[2017-07-21 05:54] LABS: ALBUMIN 2.7 GM/DL (3.4-5.0); ALT (GPT) 19 U/L (12-78); AST (GOT) 33 U/L (15-37); BICARBONATE 26.2 MEQ/L (21.0-32.0); BLOOD UREA NITROGEN 60 MG/DL (7-18); CALCIUM 7.7 MG/DL (8.5-10.1); CHLORIDE 96 MEQ/L (98-107); CREATININE 8.62 MG/DL (0.60-1.30); GLOMERULAR FILTRATION RATE 6 ML/MIN (>89); GLUCOSE,RANDOM 116 MG/DL (74-106); SODIUM (NA) 133 MEQ/L (136-145)
[2017-07-21 06:00] LABS: ALKALINE PHOSPHATASE 166 U/L (45-117); PHENYTOIN (DILANTIN) 7.5 MCG/ML (10.0-20.0); TOTAL BILIRUBIN ADULT 1.9 MG/DL (0.2-1.0); TOTAL PROTEIN 6.7 GM/DL (6.4-8.2)
[2017-07-21] MEDS: INSULIN ASPART SUPPLEMENTAL SCALE SQ SCH ×4 (08:00→20:48)
[2017-07-21] MEDS: CHLORHEXIDINE 0.12% (ORAL KIT) 15 ML CUP MT SCH ×2 (08:00→20:00)
[2017-07-21] MEDS: SEVELAMER CARBONATE 800 MG TAB PO SCH ×3 (08:00→17:00)
[2017-07-21] MEDS: PHENYLEPHRINE 40 MG in D5W 500 ML IV PRN (08:14)
[2017-07-21] MEDS: RANOLAZINE 500 MG EXTENDED RELEASE TAB PO SCH ×2 (09:00→20:47)
[2017-07-21] MEDS: EZETIMIBE 10 MG TAB PO SCH (09:40)
[2017-07-21] MEDS: FAMOTIDINE 20 MG/2 ML VIAL IV PUSH SCH ×2 (09:40→20:47)
[2017-07-21] MEDS: ASPIRIN 81 MG CHEW TAB CHEW SCH (09:40)
[2017-07-21] MEDS: DOCUSATE SODIUM 50 MG/SENNA 8.6 MG TAB PO SCH ×2 (09:40→20:47)
[2017-07-21] MEDS: cefTRIAXone INJ 1,000 MG in SODIUM CHLORIDE 0.9% INJ 100 ML IV SCH ×2 (09:41→20:46)
[2017-07-21] MEDS: SODIUM CHLORIDE 0.9% FLUSH 10 ML FLUSH IV FLUSH SCH ×2 (09:41→20:48)
--- NOTE | 2017-07-21 10:35 | HHI.GIFU ---
Subjective Remarks Pt remains on sedation, however moving upper extremities Mechanically ventilated via ETT Currently receiving HD (Klaudia Harding) Objective Vitals I&O Vital Signs Date Time Temp Pulse Resp B/P (MAP) Pulse Ox O2 Delivery O2 Flow Rate FiO2 07/21/17 09:43 65 104/55 07/21/17 08:30 60 91/51 07/21/17 08:14 60 95/52 07/21/17 08:00 98.8 66 15 104/55 (71) 99 07/21/17 08:00 66 07/21/17 08:00 40 07/21/17 07:35 100 40 07/21/17 06:00 66 07/21/17 04:00 40 07/21/17 04:00 61 07/21/17 04:00 98.9 61 19 96/54 (68) 99 07/21/17 03:21 99 40 07/21/17 02:00 65 07/21/17 02:00 65 86/51 07/21/17 00:00 40 07/21/17 00:00 66 07/21/17 00:00 99.2 66 15 90/54 (66) 99 07/20/17 23:35 96 40 07/20/17 22:00 73 07/20/17 20:54 81 106/79 07/20/17 20:00 40 07/20/17 20:00 100.6 79 20 107/58 (74) 97 07/20/17 20:00 79 07/20/17 19:35 100 40 07/20/17 18:15 100 100 07/20/17 18:00 83 07/20/17 17:43 85 07/20/17 17:05 100 40 07/20/17 17:00 99.0 79 26 106/58 (74) 100 07/20/17 17:00 40 07/20/17 17:00 83 07/20/17 16:14 92 40 07/20/17 14:00 78 07/20/17 14:00 86 111/58 07/20/17 13:14 100 40 07/20/17 12:45 84 98/56 07/20/17 12:00 99.0 79 26 82/48 (59) 100 07/20/17 12:00 82 07/20/17 12:00 30 07/20/17 12:00 84 98/59 07/20/17 11:25 84 110/55 07/20/17 11:15 83 116/56 07/20/17 11:00 82 137/62 07/20/17 10:45 70 94/50 I/O 07/20/17 07/20/17 07/20/17 07/21/17 07/21/17 07/21/17 07:00 15:00 23:00 07:00 15:00 23:00 Intake Total 126 ml 1441 ml Output Total 0 ml Balance 126 ml 0 ml 1441 ml Intake IV Total 126 ml 1441 ml Output Urine Total 0 ml Stool Total 0 ml # Voids 0 0 # Bowel Movements 0 0 0 Laboratory Laboratory Tests Test 07/20/17 14:58 07/21/17 04:41 CSF Volume (Tube 1) 3.2 CSF Supernatant Color (tube 1) CLEAR CSF Gross Blood (Tube 1) TRACE CSF Volume (Tube 2) 2.5 CSF Supernatant Color (tube 2) CLEAR CSF Gross Blood (Tube 2) TRACE CSF Volume (Tube 3) 2.5 CSF Supernatant Color (tube 3) CLEAR CSF Volume (Tube 4) 3.8 CSF Supernatant Color (tube 4) CLEAR CSF WBC (Tube 4) 48 CSF RBC (Tube 4) 277 CSF Neutrophils 46 CSF Lymphocytes 29 CSF Monocytes 25 CSF Glucose 38 CSF Total Protein 40.3 Blood Urea Nitrogen 60 Creatinine 8.62 Random Glucose 116 Total Protein 6.7 Albumin 2.7 Calcium Level 7.7 Alkaline Phosphatase 166 Aspartate Amino Transf (AST/SGOT) 33 Alanine Aminotransferase (ALT/SGPT) 19 Total Bilirubin 1.9 Sodium Level 133 Potassium Level 5.9 Chloride Level 96 Carbon Dioxide Level 26.2 Anion Gap 11 Estimat Glomerular Filtration Rate 6 Phenytoin (Dilantin) Level 7.5 Date/Time Source Procedure Growth Status 07/21/17 01:00 Blood Peripheral Aerobic Blood Culture Pending Received 07/21/17 01:00 Blood Peripheral Anaerobic Blood Culture Pending Received 07/20/17 14:58 Cerebral Spinal Fluid Lumbar Puncture Fungal Smear - Final NO FUNGAL ELEMENTS SEEN. Resulted 07/20/17 14:58 Cerebral Spinal Fluid Lumbar Puncture Fungal Culture Pending Resulted Imaging Last Impressions Chest X-Ray 07/20/17 0600 Signed Impressions: Service Date/Time: June 04:16 - CONCLUSION: 1. Right rib fracture with patchy opacity in the right lung base. 2. Mild cardiomegaly with no evidence of pulmonary edema. 3. Interval placement of nasogastric tube. Godfrey Khoury MD Lumbar Puncture Fluoroscopy 07/20/17 0000 Signed Impressions: Service Date/Time: June 14:34 - CONCLUSION: Uncomplicated fluoroscopically guided lumbar puncture. Klaus Haley Jr., MD Gall Bladder Ultrasound 07/20/17 0000 Signed Impressions: Service Date/Time: June 08:54 - CONCLUSION: Gallstone. Moderate extrahepatic biliary ductal dilatation End-stage right kidney Juan Sarkar MD Head CT 07/19/17 0000 Signed Impressions: Service Date/Time: Wednesday, July 19, 2017 17:39 - CONCLUSION: Normal examination. Juan Sarkar MD Physical Exam HEENT: Normocephalic; atraumatic CHEST: Synchronized with vent. Mechanically ventilated via ETT CARDIAC: RRR ABDOMEN: Soft, nondistended, bowel sounds active EXTREMITIES: No clubbing, cyanosis, or edema. SKIN: Normal; no rash; no jaundice. CEILING INSULATION BLOWER: On sedation, moving upper extremities (Klaudia Harding) Assessment and Plan Plan Assessment: - Biliary duct dilation with elevation of Alk phos and T bili US gallbladder (07/20) --> Moderate extrahepatic biliary ductal dilation. Alk phos-193 T bili-1.5 LFTs WNL. Unable to obtain further GI history from pt or review of symptoms, pt currently on ventilator and unable to answer questions. Exam reveals soft, nondistended abdomen, no jaundice. - ESRD- hemodialysis M,W,F - Seizure disorder- neurology on case (07/21) --> Some improvement in alk phos today, T bili elevated some to 1.9. MRCP still pending. S/P LP yesterday, CSF still pending. Receiving HD during my exam. H/H stable B/P stable- on Chris gtt Remains on Sedation and mechanically ventilated. Plan: MRCP W/O contrast Monitor labs Further recommendations based on findings of above Pt has been seen and examined by myself and Dr. Ruiz and this note is written on his behalf (Klaudia Harding) Physician Comments Seen and examined with [employer], intubated now. MRCP shows non obstructing cholidocholithiasis. Needs ercp tomorrow vs. monday depending upon clinical course. Dr. Gupta to follow over the weekend. (Arabella Ruiz MD) Klaudia Harding Jul 21, 2017 10:35 Arabella Ruiz MD Jul 21, 2017 19:37
--- NOTE | 2017-07-21 11:44 | HHI.CCPN ---
Subjective Remarks/Hospital Course This is a 67-year-old male, that was admitted to inpatient psychiatry unit. Per report, the patient has a seizure disorder, and previous attempts have been made to obtain EEG. Dr. Salas, neurologist. The patient had been having falls for the past several days, and subsequently had a laceration in the posterior scalp. Today the patient was noted to be in the day room having a tonic-clonic seizure, and subsequent unresponsiveness. A Halicat was initiated , and the patient was transferred [place] [facility] my evaluation the patient was nonresponsive, O2 saturation was 97%, the patient was unable to protect airway. The patient was emergently intubated, and placed on a ventilator. A stat chest x-ray was performed which showed a posterolateral 7th rib fracture. A stat CT of the brain was obtained, results negative. Stat EEG was obtained prior to initiation of sedation, the patient was then loaded with fosphenytoin. Critical care is requested for management. SUBJ 07/20: Patient remains intubated off, follows commands intermittently. He follows commands, EEG report is pending at this time. LP ordered by Dr. Salas today. GI consulted for gall stone and dilated extrahepatic bile duct. Developed hypotension started on Chris-Synephrine currently at 80 mcg/min 07/21: Remains intubated sedated, getting hemodialysis today, remains on Chris- Synephrine at 60 mcg/min. LP showed CSF pleocytosis, ? postictal. ID consult pending. On Rocephin and acyclovir per neuro Objective Vital Signs Date Time Temp Pulse Resp B/P (MAP) Pulse Ox O2 Delivery O2 Flow Rate FiO2 07/21/17 10:00 66 07/21/17 09:43 104/55 07/21/17 08:00 98.8 15 99 07/21/17 08:00 40 Intake and Output 07/21/17 07/21/17 07/22/17 08:00 16:00 00:00 Intake Total 1441 ml Balance 1441 ml Result Diagram: 07/20/17 0338 07/21/17 0441 Imaging Last Impressions Head CT 07/19/17 0000 Signed Impressions: Service Date/Time: Wednesday, July 19, 2017 17:39 - CONCLUSION: Normal examination. Juan Sarkar MD Chest X-Ray 07/19/17 0000 Signed Impressions: Service Date/Time: Wednesday, July 19, 2017 15:59 - CONCLUSION: 1. ET tube is at the level of the katarzyna and needs to be withdrawn 2 cm. 2. Mildly displaced fracture of the posterolateral right 7th rib. Klaus Schneider MD Objective Remarks GENERAL: Critically ill-appearing well-developed well-nourished male currently intubated, awake follows commands SKIN: Warm and dry. HEAD: Atraumatic. Normocephalic. EYES: Pupils equal and round. No scleral icterus. No injection or drainage. ENT: No nasal bleeding or discharge. Mucous membranes pink and moist. NECK: Trachea midline. No JVD. CARDIOVASCULAR: Normal rate, regular rhythm. Hypotensive on Chris-Synephrine at 60 mcg/min RESPIRATORY: No accessory muscle use. Clear to auscultation. Breath sounds equal bilaterally. GASTROINTESTINAL: Abdomen soft, non-tender, nondistended. No guarding. MUSCULOSKELETAL: Extremities without clubbing, cyanosis, or edema. No obvious deformities. NEUROLOGICAL: RASS -1. Moving extremities 4 follows commands intermittently. No focal deficits A/P Assessment and Plan 67 year old male emergently intubated for airway protection after experiencing active seizures. The patient after imaging now has a mildly displaced 7th rib fracture. Patient is critically ill. Plan by systems: Neurologic: Seizure disorder Mood disorder Dementia Neurology following- Dr. Salas. LP, CSF pleocytosis Continue Rocephin and acyclovir per neurology, await ID recommendations EEG no active seizures Fosphenytoin 1 g load, then fosphenytoin 100 mg TID Ativan for active seizures, Seizure precautions Ammonia level <10 Postictal state improved Respiratory: Acute hypoxemic respiratory failure Patient intubated with 8.0 ETT, initially 24 cm at the lip, retracted to 22 cm @ lip post CXR 07/19 chest [id number] seventh rib fracture Wean FiO2, to maintain O2sat greater than 92% Ventilator bundle. Duo nebs every 6 hours scheduled, every 2 hours when necessary Begin CPAP trials after HD and MRCP completed hopefully extubate today Cardiovascular: Hypotension on pressors Cardiovascular disease History of hypertension Chris-Synephrine at 60 mcg/min to keep map above 65 Continue previous medications rosuvastatin 40 mg/at bedtime, continue ASA 81 mg/ day continue Ranexa ER 1gm BID, Hold Isordil 60 mg/day, Carvedilol 12.5 BID due to hypotension Patient's previous medication includes losartan, Isordil will hold for now Renal: ESRD Nephrology following-Dr. Hernadez Hemodialysis per nephrology Strict I/Os Continue previous meds FEN/GI: Dilated extrahepatic biliary duct, gallstone Electrolyte derangement Hyperlipidemia Check MRCP, GI consult appreciated Replete electrolytes Potassium level 5.9-patient undergoing IHD Continue Sevelamer 800 mg TID Continue Zetia 10mg/d Alkaline phosphatase noted elevation Gallbladder ultrasound-Dilated extrahepatic biliary duct, gallstone Creatinine kinase 918 F/U LFT's Heme/ID: Monitor CBC Obtain cultures if clinically indicated Endocrine: Hypothyroidism Continue levothyroxine 100 mg/day Glucose monitoring per ICU protocol -- SSI Prophylaxis: GI Prophylaxis Famotidine BID DVT Prophylaxis -- SCDs Heparin BID Lines: Peripheral IVs 2. Central line if indicated Dispo: my billing statement Level 3 Janelle Martinez MD Jul 21, 2017 11:44
--- NOTE | 2017-07-21 12:06 | RADRPT ---
EXAM DATE/TIME: 07/21/2017 11:34 [facility] COMPARISON: CHEST SINGLE AP, July 20, 2017, 4:16. INDICATIONS : Shortness of breath. MEDICAL HISTORY : Dementia. Renal failure. Dialysis. ETOH. SURGICAL HISTORY : CABG. Hemodialysis fistula, right arm. ENCOUNTER: Subsequent ACUITY: 1 day PAIN SCORE: Non-responsive. LOCATION: Bilateral chest FINDINGS: Endotracheal tube tip well above the katarzyna. Gastric tube tip and side-port project within the stoma ch. There is persisting consolidation in the right mid and lower lung, slightly more prominent on pr ior examination. Stable right lateral 7 rib fracture. No evidence pneumothorax. The left lung is c lear. CONCLUSION: 1. Increasing consolidation in the medial right lower lung when compared to yesterday's exam. 2. Stable lower lateral right 7th rib fracture without evidence of pneumothorax. Klaus Schneider MD on July 21, 2017 at 12:03 Board Certified Radiologist. This report was verified electronically.
--- NOTE | 2017-07-21 13:57 | RADRPT ---
EXAM DATE/TIME: 07/21/2017 12:23 [facility] COMPARISON: US ABDOMEN - GALLBLADDER, July 20, 2017, 8:54. INDICATIONS : Elevated LFTs. MEDICAL HISTORY : Renal failure, chronic. SURGICAL HISTORY : CABG IVC Filter placement. ENCOUNTER: Subsequent ACUITY: 1 week PAIN SCORE: Nonresponsive. LOCATION: abdomen TECHNIQUE: Multiplanar, multisequence magnetic resonance imaging of the abdomen was performed. High-resolution 3D dataset was utilized to reconstruct maximum-intensity projection (MIP) images. FINDINGS: There is a small right pleural effusion. Minimal amount of ascites is seen in the right upper abdome n. In the gallbladder, there are 2 tiny filling defects in the dependent portion near the neck measuring 2 mm and 5 mm. Gallbladder margins are smooth. No dilation of the intrahepatic biliary system. Th e common hepatic duct and common bile duct are dilated, measuring up to 12 mm in width. There is a s olitary filling defect seen in the distal common bile duct measuring 5 mm. The pancreatic duct is normal in dimension. CONCLUSION: 1. Tiny gallstones. 2. Dilated common bile duct and common hepatic duct with a solitary 5 mm filling defect in common bile duct. 3. Right pleural effusion and ascites right upper quadrant . Klaus Schneider MD on July 21, 2017 at 13:52 Board Certified Radiologist. This report was verified electronically.
--- NOTE | 2017-07-21 18:39 | HHI.PR ---
Review/Management Diagnosis seizure progressive dementia csf pleocytosis--possible post ictal phenomenon. r/o encephalitis, r/o cryptococcal meningitis, Plan empiric rocephin and acyclovir (dose corrected for renal failure) pending csf cultures and HSV pcr ID consult follow up all csf results continue current cerebyx dose. Phenytoin level is 20 corrected for low albumin and renal failure Diagnosis/Plan: Subjective Subjective Comments No acute events reported No further sz His family relate that he has had progressive memory loss and confusion for about a month and also has demonstrated intermittent brief limb jerking Active Medications Current Medications Medications (Trade) Dose Ordered Sig/Isis Route Start Time Stop Time Status Last Admin (Ativan Inj) 1 mg Q6H PRN IV 07/19/17 16:15 07/20/17 05:24 (NS Flush) 2 ml UNSCH PRN IV FLUSH 07/19/17 16:30 (NS Flush) 2 ml BID IV FLUSH 07/19/17 21:00 07/21/17 09:41 (Tylenol) 650 mg Q6H PRN PO 07/19/17 16:30 07/20/17 22:38 (Pepcid Inj) 10 mg Q12HR IV PUSH 07/19/17 21:00 07/21/17 09:40 (Ativan Inj) 2 mg Q4H PRN IV PUSH 07/19/17 16:30 07/20/17 17:56 (Duoneb Neb) 1 ampule Q6HR NEB INH 07/19/17 22:00 07/21/17 15:22 (Duoneb Neb) 1 ampule Q2HR NEB PRN INH 07/19/17 16:30 Miscellaneous Information 1 Q361D XX 07/19/17 16:30 (Chlorhexidine 2% Cloth) 3 pack Taper DAILY@04 TOP 07/20/17 04:00 07/16/18 03:59 07/21/17 05:35 (Chlorhexidine 2% Cloth) 3 pack UNSCH PRN TOP 07/19/17 16:30 (Sommer-Colace) 1 tab BID PO 07/19/17 21:00 07/21/17 09:40 (Milk Of Magnesia Liq) 30 ml Q12H PRN PO 07/19/17 16:30 (Senokot) 17.2 mg Q12H PRN PO 07/19/17 16:30 (Dulcolax Supp) 10 mg DAILY PRN RECTAL 07/19/17 16:30 (Lactulose Liq) 30 ml DAILY PRN PO 07/19/17 16:30 (Peridex 0.12% Liq) 15 ml BID@08,20 MT 07/19/17 20:00 07/21/17 08:00 Fentanyl Citrate 250 ml @ 5 mls/hr TITRATE PRN IV 07/19/17 20:30 07/21/17 05:36 Propofol 100 ml @ 2.034 mls/ hr TITRATE PRN IV 07/19/17 20:30 (Synthroid) 100 mcg DAILY@0600 PO 07/20/17 06:00 07/21/17 05:36 (Coreg) 12.5 mg Q12HR PO 07/19/17 21:00 Future Hold 07/19/17 23:23 (Renvela) 800 mg TIDAC PO 07/20/17 08:00 (Aspirin Chew) 81 mg DAILY CHEW 07/20/17 09:00 07/21/17 09:40 (Zetia) 10 mg DAILY PO 07/20/17 09:00 07/21/17 09:40 (Lipitor) 80 mg HS PO 07/19/17 21:00 07/20/17 20:52 (Ranexa) 1,000 mg Q12HR PO 07/19/17 21:00 07/20/17 20:52 Sodium Chloride 1,000 ml @ 0 mls/hr TITRATE PRN OTHER 07/19/17 20:30 (Heparin Inj) 8,000 units UNSCH PRN IV FLUSH 07/19/17 20:30 Sodium Chloride 1,000 ml @ 200 mls/hr Q5H PRN OTHER 07/19/17 20:30 Sodium Chloride 200 ml @ 0 mls/hr UNSCH PRN IV 07/19/17 20:30 (Mannitol Inj) 12.5 gm UNSCH PRN IV PUSH 07/19/17 20:30 Albumin Human 100 ml @ 60 mls/hr UNSCH PRN IV 07/19/17 20:30 (NS Flush) 5 ml UNSCH PRN IV FLUSH 07/19/17 20:30 (Heparin Inj) Dwell Heparin to f... UNSCH PRN OTHER 07/19/17 20:30 (Gentamicin Inj) 10 mg UNSCH PRN OTHER 07/19/17 20:30 (D50w (Vial) Inj) 50 ml UNSCH PRN IV PUSH 07/19/17 20:30 07/20/17 08:26 (Glucagon Inj) 1 mg UNSCH PRN OTHER 07/19/17 20:30 (NovoLOG SUPPLEMENTAL SCALE) 1 ACHS SLIDING SCALE SQ 07/19/17 21:00 (Gelfoam 12 Mm/7 Mm Top) 1 foam UNSCH PRN TOPICAL 07/19/17 20:30 (Zofran Inj) 4 mg UNSCH PRN IV PUSH 07/19/17 20:30 (Tylenol) 650 mg UNSCH X1 PRN PO 07/19/17 20:30 08/18/17 20:29 (Benadryl) 25 mg UNSCH PRN PO 07/19/17 20:30 (Nitrostat Sl) 0.4 mg UNSCH PRN SL 07/19/17 20:30 (Catapres) 0.1 mg UNSCH PRN PO 07/19/17 20:30 Phenylephrine HCl 40 mg/Dextrose 500 ml @ 30 mls/hr TITRATE PRN IV 07/20/17 09:45 07/21/17 08:14 (Brethine Inj) 1 mg UNSCH PRN SQ 07/20/17 09:45 (Ativan Inj) 2 mg Q4H PRN IV 07/20/17 18:45 (Cerebyx Inj) 100 mgpe Q6HR IV 07/21/17 00:00 07/21/17 17:50 Ceftriaxone Sodium 1000 mg/ Sodium Chloride 100 ml @ 200 mls/hr Q12H IV 07/20/17 20:00 07/21/17 09:41 Acyclovir Sodium 339 mg/Sodium Chloride 50 ml @ 50 mls/hr DAILY@2100 IV 07/20/17 21:00 07/20/17 20:52 Allergies Allergies Coded Allergies No Known Allergies (Unverified07/15/17) Exam I&O / VS 07/21/17 07/21/17 07/22/17 15:00 23:00 07:00 Output Total 2000 ml 0 ml Balance -2000 ml 0 ml Output Urine Total 0 ml Hemodialysis 2000 ml Vital Signs Date Time Temp Pulse Resp B/P (MAP) Pulse Ox O2 Delivery O2 Flow Rate FiO2 07/21/17 18:00 128 07/21/17 16:00 98.9 80 15 97/55 (69) 100 07/21/17 16:00 128 07/21/17 16:00 40 07/21/17 15:23 100 40 07/21/17 14:00 66 07/21/17 12:00 98.9 07/21/17 12:00 66 07/21/17 12:00 40 07/21/17 12:00 100 07/21/17 10:00 66 07/21/17 09:43 65 104/55 07/21/17 08:30 60 91/51 07/21/17 08:14 60 95/52 07/21/17 08:00 98.8 66 15 104/55 (71) 99 07/21/17 08:00 66 07/21/17 08:00 40 07/21/17 07:35 100 40 07/21/17 06:00 66 07/21/17 04:00 40 07/21/17 04:00 61 07/21/17 04:00 98.9 61 19 96/54 (68) 99 07/21/17 03:21 99 40 07/21/17 02:00 65 07/21/17 02:00 65 86/51 07/21/17 00:00 40 07/21/17 00:00 66 07/21/17 00:00 99.2 66 15 90/54 (66) 99 07/20/17 23:35 96 40 07/20/17 22:00 73 07/20/17 20:54 81 106/79 07/20/17 20:00 40 07/20/17 20:00 100.6 79 20 107/58 (74) 97 07/20/17 20:00 79 07/20/17 19:35 100 40 Exam Comments alert, follow commands PERRL, EOM intact to dolls MOTOR--5/5 BUE and BLE Objective Micro and Labs Laboratory Tests Test 07/21/17 04:41 Blood Urea Nitrogen 60 Creatinine 8.62 Random Glucose 116 Total Protein 6.7 Albumin 2.7 Calcium Level 7.7 Alkaline Phosphatase 166 Aspartate Amino Transf (AST/SGOT) 33 Alanine Aminotransferase (ALT/SGPT) 19 Total Bilirubin 1.9 Sodium Level 133 Potassium Level 5.9 Chloride Level 96 Carbon Dioxide Level 26.2 Anion Gap 11 Estimat Glomerular Filtration Rate 6 Phenytoin (Dilantin) Level 7.5 Date/Time Source Procedure Growth Status 07/21/17 01:00 Blood Peripheral Aerobic Blood Culture Pending Received 07/21/17 01:00 Blood Peripheral Anaerobic Blood Culture Pending Received 07/20/17 14:58 Cerebral Spinal Fluid Lumbar Puncture Fungal Smear - Final NO FUNGAL ELEMENTS SEEN. Resulted 07/20/17 14:58 Cerebral Spinal Fluid Lumbar Puncture Fungal Culture Pending Resulted Jameel Salas MD PhD Jul 21, 2017 18:39
[2017-07-21] MEDS: ATORVASTATIN 80 MG TAB PO SCH (20:47)
[2017-07-21] MEDS: ACYCLOVIR IV SCH (21:17)
[2017-07-21] MEDS: SODIUM CHLORIDE 0.9% IV SCH (21:17)
--- NOTE | 2017-07-21 21:50 | PD.ID.CON ---
History of Present Illness Service ID Consult Requested By Dr Salas Reason for Consult Encehalitis Primary Care Physician Unknown Diagnoses: History of Present Illness 67 yo male with ESRD/HD was admitted to inpatient psychiatry unit with seizure disorder, and previous attempts have been made to obtain EEG. On 07/18 patient was noted to be in the day room having a tonic-clonic seizure, and subsequent unresponsiveness. A Halicat was initiated, and the patient was transferred to [facility] and intubated to protect airway. CT and MRI of the brain (both non contrasted) were negative LP was done and elevated WBC ( in 40s) with normla diff was noted Also RBC were elevated into 200+ Gstain negative Clx negative HSV P Pt is on acyclovir, CFTX Neurology ff Review of Systems ROS Limitations: Clinical Condition, Intubated, Altered Mental Status Past Family Social History Allergies: Coded Allergies: No Known Allergies (Unverified , 07/15/17) Past Medical History ESRD on HD MWF Hypothyroidism Hypertriglyceridemia CAD s/p CABG HTN GERD Past Surgical History CABG AV fistual RUE Active Ordered Medications Medications where reviewed in EMR Antibiotics Include: acyclovir CFTX Family History dementia (father) Social History No Tobacco. occ ETOH. No Illicit Drugs. Physical Exam Vital Signs Vital Signs Date Time Temp Pulse Resp B/P (MAP) Pulse Ox O2 Delivery O2 Flow Rate FiO2 07/21/17 20:00 99.9 88 18 129/64 (85) 100 07/21/17 20:00 40 07/21/17 19:18 100 40 07/21/17 18:00 128 07/21/17 16:00 98.9 80 15 97/55 (69) 100 07/21/17 16:00 128 07/21/17 16:00 40 07/21/17 15:23 100 40 07/21/17 14:00 66 07/21/17 12:00 98.9 07/21/17 12:00 66 07/21/17 12:00 40 07/21/17 12:00 100 07/21/17 10:00 66 07/21/17 09:43 65 104/55 07/21/17 08:30 60 91/51 07/21/17 08:14 60 95/52 07/21/17 08:00 98.8 66 15 104/55 (71) 99 07/21/17 08:00 66 07/21/17 08:00 40 07/21/17 07:35 100 40 07/21/17 06:00 66 07/21/17 04:00 40 07/21/17 04:00 61 07/21/17 04:00 98.9 61 19 96/54 (68) 99 07/21/17 03:21 99 40 07/21/17 02:00 65 07/21/17 02:00 65 86/51 07/21/17 00:00 40 07/21/17 00:00 66 07/21/17 00:00 99.2 66 15 90/54 (66) 99 07/20/17 23:35 96 40 07/20/17 22:00 73 Physical Exam CONSTITUTIONAL/GENERAL: This is an adequately nourished patient, in no apparent distress. TUBES/LINES/DRAINS: RUE AV graft in palce with good thrill SKIN: No jaundice, rashes, or lesions. Ecchymoses on upper extremities. No wounds seen anteriorly. Skin temperature appropriate. Not diaphoretic. HEAD: Atraumatic. Normocephalic. EYES: Pupils equal and round and reactive. Extraocular motions intact. No scleral icterus. No injection or drainage. Fundi not examined. ENT: Hearing grossly normal. Nose without bleeding or purulent drainage. Throat without visible erythema, exudates, masses, or lesions. NECK: Trachea midline. Supple, nontender. CARDIOVASCULAR: irregular rate and rhythm 4-5 holosystolic harsh murmur with max on aorta, gallops, or rubs. No JVD. Peripheral pulses symmetric. RESPIRATORY/CHEST: Symmetric, unlabored respirations. Clear to auscultation. Breath sounds equal bilaterally. No wheezes, rales, or rhonchi. GASTROINTESTINAL: Abdomen soft, non-tender, nondistended. No hepato-splenomegaly , or palpable masses. No guarding. Bowel sounds present. GENITOURINARY: Without palpable bladder distension. Marshall catheter in place. MUSCULOSKELETAL: Extremities without clubbing, cyanosis, or edema. No joint tenderness or effusion noted. No calf tenderness. No mottling or clubbing. LYMPHATICS: No palpable cervical or supraclavicular adenopathy. NEUROLOGICAL: Awake. Confused. Follow commands intermittentlyu and with delay, but eventually followed on all 4 extrermieties. Moves all extremities. PSYCHIATRIC: not agitated Laboratory Laboratory Tests Test 07/21/17 04:41 Blood Urea Nitrogen 60 Creatinine 8.62 Random Glucose 116 Total Protein 6.7 Albumin 2.7 Calcium Level 7.7 Alkaline Phosphatase 166 Aspartate Amino Transf (AST/SGOT) 33 Alanine Aminotransferase (ALT/SGPT) 19 Total Bilirubin 1.9 Sodium Level 133 Potassium Level 5.9 Chloride Level 96 Carbon Dioxide Level 26.2 Anion Gap 11 Estimat Glomerular Filtration Rate 6 Phenytoin (Dilantin) Level 7.5 Date/Time Source Procedure Growth Status 07/21/17 01:00 Blood Peripheral Aerobic Blood Culture Pending Received 07/21/17 01:00 Blood Peripheral Anaerobic Blood Culture Pending Received 07/20/17 14:58 Cerebral Spinal Fluid Lumbar Puncture Fungal Smear - Final NO FUNGAL ELEMENTS SEEN. Resulted 07/20/17 14:58 Cerebral Spinal Fluid Lumbar Puncture Fungal Culture Pending Resulted Result Diagram: 07/20/17 0338 07/21/17 0441 Imaging Last Impressions Cholangiopancreatography MRI 07/21/17 0000 Signed Impressions: Service Date/Time: Friday, July 21, 2017 12:23 - CONCLUSION: 1. Tiny gallstones. 2. Dilated common bile duct and common hepatic duct with a solitary 5 mm filling defect in common bile duct. 3. Right pleural effusion and ascites right upper quadrant . Klaus Schneider MD Chest X-Ray 07/21/17 0000 Signed Impressions: Service Date/Time: Friday, July 21, 2017 11:34 - CONCLUSION: 1. Increasing consolidation in the medial right lower lung when compared to yesterday's exam. 2. Stable lower lateral right 7th rib fracture without evidence of pneumothorax. Klaus Schneider MD Lumbar Puncture Fluoroscopy 07/20/17 0000 Signed Impressions: Service Date/Time: June 14:34 - CONCLUSION: Uncomplicated fluoroscopically guided lumbar puncture. Klaus Haley Jr., MD Gall Bladder Ultrasound 07/20/17 0000 Signed Impressions: Service Date/Time: June 08:54 - CONCLUSION: Gallstone. Moderate extrahepatic biliary ductal dilatation End-stage right kidney Juan Sarkar MD Head CT 07/19/17 0000 Signed Impressions: Service Date/Time: Wednesday, July 19, 2017 17:39 - CONCLUSION: Normal examination. Juan Sarkar MD Assessment and Plan Assessment and Plan Suspected encephalitis cont current antiinfective agetns fu P CSF studies dc acyclovir if HSV negative HIV testing VDRL RPR Kenyatta Durbin MD Jul 21, 2017 21:50
--- NOTE | 2017-07-21 22:53 | HHI.NPPN ---
Subjective History of Present Illness 67 year old with ESRD, on Hemodialysis, admitted with seizures, he was intubated Objective Data Data 07/21/17 07/22/17 19:00 07:00 Intake Total 150 ml Output Total 2000 ml Balance -2000 ml 150 ml Intake IV Total 150 ml Output Urine Total 0 ml Hemodialysis 2000 ml Vital Signs Date Time Temp Pulse Resp B/P (MAP) Pulse Ox O2 Delivery O2 Flow Rate FiO2 07/21/17 22:00 87 07/21/17 20:00 99.9 88 18 129/64 (85) 100 07/21/17 20:00 40 07/21/17 20:00 88 07/21/17 19:18 100 40 07/21/17 18:00 128 07/21/17 16:00 98.9 80 15 97/55 (69) 100 07/21/17 16:00 128 07/21/17 16:00 40 07/21/17 15:23 100 40 07/21/17 14:00 66 07/21/17 12:00 98.9 07/21/17 12:00 66 07/21/17 12:00 40 07/21/17 12:00 100 07/21/17 10:00 66 07/21/17 09:43 65 104/55 07/21/17 08:30 60 91/51 07/21/17 08:14 60 95/52 07/21/17 08:00 98.8 66 15 104/55 (71) 99 07/21/17 08:00 66 07/21/17 08:00 40 07/21/17 07:35 100 40 07/21/17 06:00 66 07/21/17 04:00 40 07/21/17 04:00 61 07/21/17 04:00 98.9 61 19 96/54 (68) 99 07/21/17 03:21 99 40 07/21/17 02:00 65 07/21/17 02:00 65 86/51 07/21/17 00:00 40 07/21/17 00:00 66 07/21/17 00:00 99.2 66 15 90/54 (66) 99 07/20/17 23:35 96 40 -: 07/20/17 0338 07/21/17 0441 Microbiology 07/21/17 Aerobic Blood Culture, Received Pending 07/21/17 Anaerobic Blood Culture, Received Pending 07/21/17 Aerobic Blood Culture, Received Pending 07/21/17 Anaerobic Blood Culture, Received Pending Physical Exam General Appearance: Well Developed Pulmonary Resp Exam: Clear Bilaterally Cardiology CV Exam: Regular Gastrointestinal/Abdomen GI Exam: Soft, Non-Tender, Bowel Sounds Present Extremeties Extremities Exam: No Edema Assessment/Plan Problem List: (1) ESRD (end stage renal disease) on dialysis ICD Codes: N18.6 - End stage renal disease; Z99.2 - Dependence on renal dialysis Plan: we plan to do HD on MWF Patient had MRCP had filling defect 5 mm bile duct and gallstones GI following Status post LP on acyclovir Hemodialysis done earlier 2 L removed (2) Seizures ICD Codes: R56.9 - Unspecified convulsions Plan: Neurology following on Joshua Butler MD Jul 21, 2017 22:53
[2017-07-22] VITALS (17 sets, daily range): BP systolic 105–137; BP diastolic 55–61; PULSE 80–86; RESP 17–20; TEMP 97.7–99.6; O2SAT 95–100
[2017-07-22] MEDS: RESP: ALBUTEROL 2.5 MG/IPRATROPIUM 0.5 MG NEB (SCH) INH ×4 (02:47→20:21)
[2017-07-22] MEDS: CHLORHEXIDINE GLUCONATE 2 % 1 PACK (2 CLOTHS) TOP SCH (04:00)
[2017-07-22] MEDS: FOSPHENYTOIN SODIUM 100 MG PE/2 ML VIAL IV SCH ×4 (05:31→23:19)
[2017-07-22] MEDS: LEVOTHYROXINE SODIUM 100 MCG TAB PO SCH (05:32)
[2017-07-22] MEDS: SEVELAMER CARBONATE 800 MG TAB PO SCH ×3 (08:00→17:00)
[2017-07-22] MEDS: INSULIN ASPART SUPPLEMENTAL SCALE SQ SCH ×4 (08:00→20:28)
--- NOTE | 2017-07-22 08:02 | HHI.CCPN ---
Subjective Remarks/Hospital Course This is a 67-year-old male, that was admitted to inpatient psychiatry unit. Per report, the patient has a seizure disorder, and previous attempts have been made to obtain EEG. Dr. Salas, neurologist. The patient had been having falls for the past several days, and subsequently had a laceration in the posterior scalp. Today the patient was noted to be in the day room having a tonic-clonic seizure, and subsequent unresponsiveness. A Halicat was initiated , and the patient was transferred to [facility]. Upon my evaluation the patient was nonresponsive, O2 saturation was 97%, the patient was unable to protect airway. The patient was emergently intubated, and placed on a ventilator. A stat chest x-ray was performed which showed a posterolateral 7th rib fracture. A stat CT of the brain was obtained, results negative. Stat EEG was obtained prior to initiation of sedation, the patient was then loaded with fosphenytoin. Critical care is requested for management. SUBJ 07/20: Patient remains intubated off, follows commands intermittently. He follows commands, EEG report is pending at this time. LP ordered by Dr. Salas today. GI consulted for gall stone and dilated extrahepatic bile duct. Developed hypotension started on Chris-Synephrine currently at 80 mcg/min 07/21: Remains intubated sedated, getting hemodialysis today, remains on Chris- Synephrine at 60 mcg/min. LP showed CSF pleocytosis, ? postictal. ID consult pending. On Rocephin and acyclovir per neuro 07/22: Patient remains intubated off sedation now following commands. Low tidal volumes on CPAP. MRCP shows non obstructing choledocholithiasis. Will need ERCP. Objective Vital Signs Date Time Temp Pulse Resp B/P (MAP) Pulse Ox O2 Delivery O2 Flow Rate FiO2 07/22/17 07:13 100 40 07/22/17 06:00 85 07/22/17 04:00 99.0 18 137/61 (86) Intake and Output 07/22/17 07/22/17 07/23/17 08:00 16:00 00:00 Intake Total 60 ml Output Total 0 ml Balance 60 ml Result Diagram: 07/20/17 0338 07/21/17 0441 Imaging Last Impressions Head CT 07/19/17 0000 Signed Impressions: Service Date/Time: Wednesday, July 19, 2017 17:39 - CONCLUSION: Normal examination. Juan Sarkar MD Chest X-Ray 07/19/17 0000 Signed Impressions: Service Date/Time: Wednesday, July 19, 2017 15:59 - CONCLUSION: 1. ET tube is at the level of the katarzyna and needs to be withdrawn 2 cm. 2. Mildly displaced fracture of the posterolateral right 7th rib. Klaus Schneider MD Objective Remarks GENERAL: Critically ill-appearing well-developed well-nourished male currently intubated, awake follows commands SKIN: Warm and dry. HEAD: Atraumatic. Normocephalic. EYES: Pupils equal and round. No scleral icterus. No injection or drainage. ENT: No nasal bleeding or discharge. Mucous membranes pink and moist. NECK: Trachea midline. No JVD. CARDIOVASCULAR: Normal rate, regular rhythm. Systolic murmur heard in all areas most likely secondary to AV fistula, rule out RESPIRATORY: No accessory muscle use. Clear to auscultation. Breath sounds equal bilaterally. Low tidal volumes on CPAP GASTROINTESTINAL: Abdomen soft, non-tender, nondistended. No guarding. MUSCULOSKELETAL: Extremities without clubbing, cyanosis, or edema. No obvious deformities. NEUROLOGICAL: RASS -0. Moving extremities 4 follows commands intermittently. No focal deficits A/P Assessment and Plan 67 year old male emergently intubated for airway protection after experiencing active seizures. CXR mildly displaced 7th rib fracture. Patient is critically ill. Plan by systems: Neurologic: Seizure disorder Mood disorder Dementia Neurology following- Dr. Salas. LP, CSF pleocytosis Continue Rocephin and acyclovir per neurology, appreciate ID recommendations EEG no active seizures Fosphenytoin 1 g load, then fosphenytoin 100 mg TID Ativan for active seizures, Seizure precautions Ammonia level <10 Postictal state improved Respiratory: Acute hypoxemic respiratory failure Patient intubated with 8.0 ETT, initially 24 cm at the lip, retracted to 22 cm @ lip post CXR 07/19 chest [id number] seventh rib fracture Wean FiO2, to maintain O2sat greater than 92% Ventilator bundle. Duo nebs every 6 hours scheduled, every 2 hours when necessary CPAP trials with possible extubation Cardiovascular: Hypotension Systolic murmur secondary to AVF, rule out Cardiovascular disease History of hypertension Chris-Synephrine to keep map above 65 2 D Echo to evaluate Systolic murmur most likely secondary to AVF, rule out Continue previous medications rosuvastatin 40 mg/at bedtime, continue ASA 81 mg/ day continue Ranexa ER 1gm BID, Hold Isordil 60 mg/day, Carvedilol 12.5 BID due to hypotension Patient's previous medication includes losartan, Isordil will hold for now Renal: ESRD Nephrology following-Dr. Hernadez Hemodialysis per nephrology, 2L removed 07/21 Strict I/Os Continue previous meds FEN/GI: Gall stones, nonobstructing choledocholithiasis Electrolyte derangement Hyperlipidemia MRCP yesterday shows nonobstructing choledocholithiasis, GI following need ERCP CMP today Continue Sevelamer 800 mg TID Continue Zetia 10mg/d Alkaline phosphatase noted elevation Gallbladder ultrasound-Dilated extrahepatic biliary duct, gallstone Creatinine kinase 918 F/U LFT's Heme/ID: Monitor CBC F/u cx, f/u HSV Continue Rocephin and acyclovir for now Endocrine: Hypothyroidism Continue levothyroxine 100 mg/day Glucose monitoring per ICU protocol -- SSI Prophylaxis: GI Prophylaxis Famotidine BID DVT Prophylaxis -- SCDs Heparin BID Lines: Peripheral IVs 2. Central line if indicated Dispo: my billing statement Level 3 Janelle Martinez MD Jul 22, 2017 08:02
[2017-07-22] MEDS: cefTRIAXone INJ 1,000 MG in SODIUM CHLORIDE 0.9% INJ 100 ML IV SCH (08:22)
[2017-07-22] MEDS: CHLORHEXIDINE 0.12% (ORAL KIT) 15 ML CUP MT SCH ×2 (08:22→20:00)
[2017-07-22] MEDS: EZETIMIBE 10 MG TAB PO SCH (08:23)
[2017-07-22] MEDS: FAMOTIDINE 20 MG/2 ML VIAL IV PUSH SCH ×2 (08:23→20:27)
[2017-07-22] MEDS: ASPIRIN 81 MG CHEW TAB CHEW SCH (08:23)
[2017-07-22] MEDS: DOCUSATE SODIUM 50 MG/SENNA 8.6 MG TAB PO SCH ×2 (08:23→20:27)
[2017-07-22] MEDS: RANOLAZINE 500 MG EXTENDED RELEASE TAB PO SCH ×2 (08:24→20:27)
[2017-07-22 08:38] LABS: HSV 1,PCR Negative (Negative)
--- NOTE | 2017-07-22 08:47 | RADRPT ---
EXAM DATE/TIME: 07/22/2017 08:04 [place] COMPARISON: CHEST SINGLE AP, July 21, 2017, 11:34. INDICATIONS : Respiratory disease. MEDICAL HISTORY : Renal failure, chronic. SURGICAL HISTORY : CABG IVC Filter placement. ENCOUNTER: Subsequent ACUITY: 1 day PAIN SCORE: Non-responsive. LOCATION: Bilateral chest FINDINGS: The patient is status post sternotomy. The patient is intubated with the tip of the ET tube 3.5 cm f rom the katarzyna in good position. There is an NG tube in place with the tip in the upper stomach. Th e heart size is within normal limits. There is increased density at the right base. The left lung i s grossly clear. The costophrenic angles are clear. CONCLUSION: 1. Persistent but slight improvement at the right lower lobe consolidation or atelectasis. 2. ET tube in good position. 3. NG tube in the upper stomach. The side port is at the EG junction region. The NG tube could be mildly advanced. Juan Dai MD on July 22, 2017 at 8:36 Board Certified Radiologist. This report was verified electronically.
[2017-07-22] MEDS: SODIUM CHLORIDE 0.9% FLUSH 10 ML FLUSH IV FLUSH SCH ×2 (08:49→20:27)
[2017-07-22 11:11] LABS: AUTOMATED NEUTROPHIL # 7.7 TH/MM3 (1.8-7.7); BASOPHIL % 0.1 % (0.0-2.0); EOSINOPHIL % 0.1 % (0.0-4.0); HEMATOCRIT 23.5 % (39.0-51.0); LYMPH % 4.8 % (9.0-44.0); LYMPHOCYTE # 0.4 TH/MM3 (1.0-4.8); MEAN CORPUSCULAR HEMOGLOBIN 31.1 PG (27.0-34.0); MEAN CORPUSCULAR HGB CONC 34.2 % (32.0-36.0); MEAN PLATELET VOLUME 10.2 FL (7.0-11.0); MONO % 8.2 % (0.0-8.0); MONOCYTE # 0.7 TH/MM3 (0-0.9); NEUT % 86.8 % (16.0-70.0); PLATELET COUNT 175 TH/MM3 (150-450); RED BLOOD COUNT 2.58 MIL/MM3 (4.50-5.90); WHITE BLOOD COUNT 8.8 TH/MM3 (4.0-11.0)
--- NOTE | 2017-07-22 11:32 | HHI.NPPN ---
Subjective History of Present Illness 67 year old with ESRD, on Hemodialysis, admitted with seizures, he was intubated Additional Remarks Extubated, no acute distress Objective Data Data Vital Signs Date Time Temp Pulse Resp B/P (MAP) Pulse Ox O2 Delivery O2 Flow Rate FiO2 07/22/17 10:00 84 07/22/17 08:48 100 Nasal Cannula 3 07/22/17 08:48 100 Nasal Cannula 3.00 07/22/17 08:00 82 07/22/17 08:00 99.5 82 119/56 (77) 100 07/22/17 07:13 100 40 07/22/17 06:03 Nasal Cannula 40 07/22/17 06:00 85 07/22/17 06:00 40 07/22/17 04:20 100 40 07/22/17 04:00 99.0 86 18 137/61 (86) 100 07/22/17 04:00 86 07/22/17 04:00 40 07/22/17 02:00 80 07/22/17 00:01 95 40 07/22/17 00:00 40 07/22/17 00:00 82 07/22/17 00:00 99.6 82 17 106/57 (73) 100 07/21/17 22:00 87 07/21/17 20:00 99.9 88 18 129/64 (85) 100 07/21/17 20:00 40 07/21/17 20:00 88 07/21/17 19:18 100 40 07/21/17 18:00 128 07/21/17 16:00 98.9 80 15 97/55 (69) 100 07/21/17 16:00 128 07/21/17 16:00 40 07/21/17 15:23 100 40 07/21/17 14:00 66 07/21/17 12:00 98.9 07/21/17 12:00 66 07/21/17 12:00 40 07/21/17 12:00 100 -: 07/22/17 1023 07/21/17 0441 Physical Exam General Appearance: Well Developed Pulmonary Resp Exam: Clear Bilaterally Cardiology CV Exam: Regular Gastrointestinal/Abdomen GI Exam: Soft, Non-Tender, Bowel Sounds Present Extremeties Extremities Exam: No Edema Assessment/Plan Problem List: (1) ESRD (end stage renal disease) on dialysis ICD Codes: N18.6 - End stage renal disease; Z99.2 - Dependence on renal dialysis Plan: HD done yesterday. Volume status and electrolytes stable, extubated now. Will plan next HD Monday, continue MWF HD. Patient had MRCP had filling defect 5 mm bile duct and gallstones GI following Status post LP on acyclovir (2) Seizures ICD Codes: R56.9 - Unspecified convulsions Plan: Neurology following on Cerebyx Ignacio King MD Jul 22, 2017 11:32
[2017-07-22 11:48] LABS: ALBUMIN 2.6 GM/DL (3.4-5.0); ALKALINE PHOSPHATASE 175 U/L (45-117); ALT (GPT) 26 U/L (12-78); AST (GOT) 45 U/L (15-37); BICARBONATE 30.2 MEQ/L (21.0-32.0); BLOOD UREA NITROGEN 64 MG/DL (7-18); CALCIUM 7.5 MG/DL (8.5-10.1); CHLORIDE 99 MEQ/L (98-107); CREATININE 7.36 MG/DL (0.60-1.30); GLOMERULAR FILTRATION RATE 7 ML/MIN (>89); GLUCOSE,RANDOM 112 MG/DL (74-106); SODIUM (NA) 139 MEQ/L (136-145); TOTAL BILIRUBIN ADULT 1.4 MG/DL (0.2-1.0); TOTAL PROTEIN 6.9 GM/DL (6.4-8.2)
--- NOTE | 2017-07-22 13:16 | HHI.GIFU ---
Subjective Remarks Patient was laying in bed, he looks comfortable, he was sedated recently because he was agitated and combative, no new issues GI freeman according to the nursing staff Objective Vitals I&O Vital Signs Date Time Temp Pulse Resp B/P (MAP) Pulse Ox O2 Delivery O2 Flow Rate FiO2 07/22/17 10:00 84 07/22/17 08:48 100 Nasal Cannula 3 07/22/17 08:48 100 Nasal Cannula 3.00 07/22/17 08:00 82 07/22/17 08:00 99.5 82 119/56 (77) 100 07/22/17 07:13 100 40 07/22/17 06:03 Nasal Cannula 40 07/22/17 06:00 85 07/22/17 06:00 40 07/22/17 04:20 100 40 07/22/17 04:00 99.0 86 18 137/61 (86) 100 07/22/17 04:00 86 07/22/17 04:00 40 07/22/17 02:00 80 07/22/17 00:01 95 40 07/22/17 00:00 40 07/22/17 00:00 82 07/22/17 00:00 99.6 82 17 106/57 (73) 100 07/21/17 22:00 87 07/21/17 20:00 99.9 88 18 129/64 (85) 100 07/21/17 20:00 40 07/21/17 20:00 88 07/21/17 19:18 100 40 07/21/17 18:00 128 07/21/17 16:00 98.9 80 15 97/55 (69) 100 07/21/17 16:00 128 07/21/17 16:00 40 07/21/17 15:23 100 40 07/21/17 14:00 66 I/O 07/21/17 07/21/17 07/21/17 07/22/17 07/22/17 07/22/17 07:00 15:00 23:00 07:00 15:00 23:00 Intake Total 1441 ml 150 ml 310 ml Output Total 2000 ml 0 ml 0 ml Balance 1441 ml -2000 ml 150 ml 310 ml Intake IV Total 1441 ml 150 ml 250 ml Other 60 ml Output Urine Total 0 ml 0 ml Hemodialysis 2000 ml # Voids 0 # Bowel Movements 0 0 Laboratory Laboratory Tests Test 07/22/17 05:26 07/22/17 10:23 White Blood Count 8.8 Red Blood Count 2.58 Hemoglobin 8.0 Hematocrit 23.5 Mean Corpuscular Volume 91.0 Mean Corpuscular Hemoglobin 31.1 Mean Corpuscular Hemoglobin Concent 34.2 Red Cell Distribution Width 16.0 Platelet Count 175 Mean Platelet Volume 10.2 Neutrophils (%) (Auto) 86.8 Lymphocytes (%) (Auto) 4.8 Monocytes (%) (Auto) 8.2 Eosinophils (%) (Auto) 0.1 Basophils (%) (Auto) 0.1 Neutrophils # (Auto) 7.7 Lymphocytes # (Auto) 0.4 Monocytes # (Auto) 0.7 Eosinophils # (Auto) 0.0 Basophils # (Auto) 0.0 CBC Comment DIFF FINAL Differential Comment Blood Urea Nitrogen 64 Creatinine 7.36 Random Glucose 112 Total Protein 6.9 Albumin 2.6 Calcium Level 7.5 Alkaline Phosphatase 175 Aspartate Amino Transf (AST/SGOT) 45 Alanine Aminotransferase (ALT/SGPT) 26 Total Bilirubin 1.4 Sodium Level 139 Potassium Level 4.9 Chloride Level 99 Carbon Dioxide Level 30.2 Anion Gap 10 Estimat Glomerular Filtration Rate 7 Date/Time Source Procedure Growth Status 07/21/17 01:00 Blood Peripheral Aerobic Blood Culture - Preliminary NO GROWTH IN 1 DAY Resulted 07/21/17 01:00 Blood Peripheral Anaerobic Blood Culture - Preliminary NO GROWTH IN 1 DAY Resulted 07/20/17 14:58 Cerebral Spinal Fluid Lumbar Puncture Fungal Smear - Final NO FUNGAL ELEMENTS SEEN. Resulted 07/20/17 14:58 Cerebral Spinal Fluid Lumbar Puncture Fungal Culture Pending Resulted Physical Exam HEENT: Normocephalic; atraumatic, sedated CHEST: Decreased breathing sounds CARDIAC: RRR ABDOMEN: Soft, nondistended, bowel sounds active EXTREMITIES: No clubbing, cyanosis, or edema. SKIN: Normal; no rash; no jaundice. [employer]: On sedation, moving upper extremities Assessment and Plan Plan Assessment: - Biliary duct dilation with elevation of Alk phos and T bili US gallbladder (07/20) --> Moderate extrahepatic biliary ductal dilation. Alk phos-193 T bili-1.5 LFTs WNL. Unable to obtain further GI history from pt or review of symptoms, pt currently on ventilator and unable to answer questions. Exam reveals soft, nondistended abdomen, no jaundice. - ESRD- hemodialysis M,W,F - Seizure disorder- neurology on case (07/21) --> Some improvement in alk phos today, T bili elevated some to 1.9. MRCP still pending. S/P LP yesterday, CSF still pending. Receiving HD during my exam. H/H stable B/P stable- on Chris gtt Remains on Sedation and mechanically ventilated. 07/22/2017 liver function are better total bilirubin 1.4, MRCP showed common bile duct stone Plan: Patient will need ERCP when more stable possibly Monday or Monday Continue monitor lab Beth Barr MD Jul 22, 2017 13:16
--- NOTE | 2017-07-22 18:35 | HHI.IDPN ---
Subjective Subjective Remarks Not much responsive after Ativan was given Agitation earlier afebrile Negative HSV - US gallbladder (07/20) --> Moderate extrahepatic biliary ductal dilation. Plan ERCP early next week Antibiotics acyuclovir CFTX Allergies: Coded Allergies: No Known Allergies (Unverified , 07/15/17) Objective . Vital Signs Date Time Temp Pulse Resp B/P (MAP) Pulse Ox O2 Delivery O2 Flow Rate FiO2 07/22/17 18:00 82 07/22/17 16:00 82 07/22/17 16:00 98.9 82 20 105/55 (72) 99 07/22/17 14:00 83 07/22/17 12:00 97.7 83 18 108/55 (72) 100 07/22/17 12:00 83 07/22/17 10:00 84 07/22/17 08:48 100 Nasal Cannula 3 07/22/17 08:48 100 Nasal Cannula 3.00 07/22/17 08:00 82 07/22/17 08:00 99.5 82 119/56 (77) 100 07/22/17 07:13 100 40 07/22/17 06:03 Nasal Cannula 40 07/22/17 06:00 85 07/22/17 06:00 40 07/22/17 04:20 100 40 07/22/17 04:00 99.0 86 18 137/61 (86) 100 07/22/17 04:00 86 07/22/17 04:00 40 07/22/17 02:00 80 07/22/17 00:01 95 40 07/22/17 00:00 40 07/22/17 00:00 82 07/22/17 00:00 99.6 82 17 106/57 (73) 100 07/21/17 22:00 87 07/21/17 20:00 99.9 88 18 129/64 (85) 100 07/21/17 20:00 40 07/21/17 20:00 88 07/21/17 19:18 100 40 07/22/17 07/22/17 07/23/17 15:00 23:00 07:00 Intake Total 100 ml Output Total 0 ml Balance 100 ml 0 ml Intake IV Total 100 ml Output Urine Total 0 ml # Bowel Movements 0 . Laboratory Tests Test 07/22/17 10:23 White Blood Count 8.8 TH/MM3 Red Blood Count 2.58 MIL/MM3 Hemoglobin 8.0 GM/DL Hematocrit 23.5 % Mean Corpuscular Volume 91.0 FL Mean Corpuscular Hemoglobin 31.1 PG Mean Corpuscular Hemoglobin Concent 34.2 % Red Cell Distribution Width 16.0 % Platelet Count 175 TH/MM3 Mean Platelet Volume 10.2 FL Neutrophils (%) (Auto) 86.8 % Lymphocytes (%) (Auto) 4.8 % Monocytes (%) (Auto) 8.2 % Eosinophils (%) (Auto) 0.1 % Basophils (%) (Auto) 0.1 % Neutrophils # (Auto) 7.7 TH/MM3 Lymphocytes # (Auto) 0.4 TH/MM3 Monocytes # (Auto) 0.7 TH/MM3 Eosinophils # (Auto) 0.0 TH/MM3 Basophils # (Auto) 0.0 TH/MM3 CBC Comment DIFF FINAL Differential Comment Laboratory Tests Test 07/21/17 04:41 07/22/17 10:23 Blood Urea Nitrogen 60 MG/DL 64 MG/DL Creatinine 8.62 MG/DL 7.36 MG/DL Random Glucose 116 MG/DL 112 MG/DL Total Protein 6.7 GM/DL 6.9 GM/DL Albumin 2.7 GM/DL 2.6 GM/DL Calcium Level 7.7 MG/DL 7.5 MG/DL Alkaline Phosphatase 166 U/L 175 U/L Aspartate Amino Transf (AST/SGOT) 33 U/L 45 U/L Alanine Aminotransferase (ALT/SGPT) 19 U/L 26 U/L Total Bilirubin 1.9 MG/DL 1.4 MG/DL Sodium Level 133 MEQ/L 139 MEQ/L Potassium Level 5.9 MEQ/L 4.9 MEQ/L Chloride Level 96 MEQ/L 99 MEQ/L Carbon Dioxide Level 26.2 MEQ/L 30.2 MEQ/L Anion Gap 11 MEQ/L 10 MEQ/L Estimat Glomerular Filtration Rate 6 ML/MIN 7 ML/MIN Microbiology Date/Time Source Procedure Growth Status 07/21/17 01:00 Blood Peripheral Aerobic Blood Culture - Preliminary NO GROWTH IN 1 DAY Resulted 07/21/17 01:00 Blood Peripheral Anaerobic Blood Culture - Preliminary NO GROWTH IN 1 DAY Resulted 07/21/17 00:55 Blood Peripheral Aerobic Blood Culture - Preliminary NO GROWTH IN 1 DAY Resulted 07/21/17 00:55 Blood Peripheral Anaerobic Blood Culture - Preliminary NO GROWTH IN 1 DAY Resulted 07/20/17 14:58 Cerebral Spinal Fluid Lumbar Puncture Fungal Smear - Final NO FUNGAL ELEMENTS SEEN. Resulted 07/20/17 14:58 Cerebral Spinal Fluid Lumbar Puncture Fungal Culture Pending Resulted 07/20/17 14:58 Cerebral Spinal Fluid Lumbar Puncture Acid Fast Stain - Final NO ACID FAST BACILLI SEEN Resulted 07/20/17 14:58 Cerebral Spinal Fluid Lumbar Puncture Mycobacterial Culture Pending Resulted 07/20/17 14:58 Cerebral Spinal Fluid Lumbar Puncture Gram Stain - Final Resulted 07/20/17 14:58 Cerebral Spinal Fluid Lumbar Puncture CSF Culture - Preliminary NO GROWTH IN 48 HOURS. Resulted Imaging Last Impressions Chest X-Ray 07/22/17 0000 Signed Impressions: Service Date/Time: Saturday, July 22, 2017 08:04 - CONCLUSION: 1. Persistent but slight improvement at the right lower lobe consolidation or atelectasis. 2. ET tube in good position. 3. NG tube in the upper stomach. The side port is at the EG junction region. The NG tube could be mildly advanced. Juan Dai MD Cholangiopancreatography MRI 07/21/17 0000 Signed Impressions: Service Date/Time: Friday, July 21, 2017 12:23 - CONCLUSION: 1. Tiny gallstones. 2. Dilated common bile duct and common hepatic duct with a solitary 5 mm filling defect in common bile duct. 3. Right pleural effusion and ascites right upper quadrant . Klaus Schneider MD Lumbar Puncture Fluoroscopy 07/20/17 0000 Signed Impressions: Service Date/Time: June 14:34 - CONCLUSION: Uncomplicated fluoroscopically guided lumbar puncture. Klaus Haley Jr., MD Gall Bladder Ultrasound 07/20/17 0000 Signed Impressions: Service Date/Time: June 08:54 - CONCLUSION: Gallstone. Moderate extrahepatic biliary ductal dilatation End-stage right kidney Juan Sarkar MD Head CT 07/19/17 0000 Signed Impressions: Service Date/Time: Wednesday, July 19, 2017 17:39 - CONCLUSION: Normal examination. Juan Sarkar MD Physical Exam CONSTITUTIONAL/GENERAL: This is an adequately nourished patient, in no apparent distress. TUBES/LINES/DRAINS: RUE AV graft in palce with good thrill SKIN: No jaundice, rashes, or lesions. Ecchymoses on upper extremities. No wounds seen anteriorly. Skin temperature appropriate. Not diaphoretic. CARDIOVASCULAR: irregular rate and rhythm 4-5 holosystolic harsh murmur with max on aorta, gallops, or rubs. No JVD. Peripheral pulses symmetric. RESPIRATORY/CHEST: Symmetric, unlabored respirations. Clear to auscultation. Breath sounds equal bilaterally. No wheezes, rales, or rhonchi. GASTROINTESTINAL: Abdomen soft, non-tender, nondistended. No hepato-splenomegaly , or palpable masses. No guarding. Bowel sounds present. GENITOURINARY: Without palpable bladder distension. Marshall catheter in place. MUSCULOSKELETAL: Extremities without clubbing, cyanosis, or edema. No joint tenderness or effusion noted. No calf tenderness. No mottling or clubbing. LYMPHATICS: No palpable cervical or supraclavicular adenopathy. NEUROLOGICAL: Difficult to arouse. Sedated p atuvan PSYCHIATRIC: unable to assess Assessment & Plan Remarks Suspected encephalitis - HSV negative Biliary duct dilation with elevation of Alk phos and T bili cont current antiinfective agetns fu P CSF studies dc acyclovir HIV testing VDRL RPR change CFTX to cefepime Kenyatta Durbin MD Jul 22, 2017 18:34
[2017-07-22] MEDS ORDERED: CEFEPIME INJ 1,000 MG in SODIUM CHLORIDE 0.9% INJ 100 ML IV SCH (18:45)
[2017-07-22] MEDS: ATORVASTATIN 80 MG TAB PO SCH (20:27)
--- NOTE | 2017-07-22 21:04 | ECHRPT ---
Indication: CONCLUSIONS Normal left ventricular size and wall thickness. The left ventricular systolic function is normal wi th an estimated ejection fraction in the range of 50-55%. No definite regional wall motion abnormalities. The left atrial size is moderately dilated. Mild calcification of both mitral valve leaflets. Mild mitral valve regurgitation. Moderate mitral annular calcification. Diffuse moderate thickening and calcification of the aortic valve. Aortic valve mean gradient is 30 mmHg suggestive of moderate aortic stenosis. Trace aortic valve regurgitation. There is mild tricuspid valve regurgitation. The estimated systolic pulmonary pressure is 40 mm Hg. BP: / HR: Rhythm: MEASUREMENTS (Male / Female) Normal Values Technical Quality:Good 2D ECHO LV Diastolic Diameter PLAX 4.9 cm 4.2 - 5.9 / 3.9 - 5.3 cm LV Systolic Diameter PLAX 3.7 cm IVS Diastolic Thickness 1.2 cm 0.6 - 1.0 / 0.6 - 0.9 cm LVPW Diastolic Thickness 1.1 cm 0.6 - 1.0 / 0.6 - 0.9 cm LV Relative Wall Thickness 0.5 RV Internal Dim ED PLAX 2.6 cm LVOT Diameter 1.8 cm M-MODE Aortic Root Diameter MM 2.9 cm LA Systolic Diameter MM 5.4 cm LA Ao Ratio MM 1.9 AV Cusp Separation MM 1.0 cm DOPPLER AV Peak Velocity 363.0 cm/s AV Peak Gradient 52.7 mmHg AV Mean Gradient 30.0 mmHg AV Velocity Time Integral 79.3 cm LVOT Peak Velocity 109.0 cm/s LVOT Peak Gradient 4.8 mmHg LVOT Velocity Time Integral 23.7 cm AV Area Cont Eq vti 0.8 cm AV Area Cont Eq pk 0.8 cm MV Peak Velocity 189.0 cm/s MV Peak Gradient 14.3 mmHg MV Mean Velocity 105.6 cm/s MV Mean Gradient 5.5 mmHg Mitral E Point Velocity 183.0 cm/s Mitral A Point Velocity 99.1 cm/s Mitral E to A Ratio 1.8 TR Peak Velocity 311.0 cm/s TR Peak Gradient 38.7 mmHg Right Atrial Pressure 10.0 mmHg Pulmonary Artery Systolic Pressu 48.7 mmHg Right Ventricular Systolic Press 48.7 mmHg FINDINGS LEFT VENTRICLE Normal left ventricular size and wall thickness. The left ventricular systolic function is normal wi th an estimated ejection fraction in the range of 50-55%. No definite regional wall motion abnormalities. RIGHT VENTRICLE Normal right ventricular size and systolic function. LEFT ATRIUM The left atrial size is moderately dilated. RIGHT ATRIUM The right atrial size is normal. ATRIAL SEPTUM Normal atrial septal thickness without atrial level shunting by limited color doppler interrogation. AORTA The aortic root and proximal ascending aorta are not well visualized. MITRAL VALVE Mild calcification of both mitral valve leaflets. Mild mitral valve regurgitation. Moderate mitral annular calcification. AORTIC VALVE Diffuse moderate thickening and calcification of the aortic valve. Aortic valve mean gradient is 30 mmHg suggestive of moderate aortic stenosis. Trace aortic valve regurgitation. TRICUSPID VALVE There is mild tricuspid valve regurgitation. The estimated systolic pulmonary pressure is 40 mm Hg. PULMONARY VALVE No pulmonary valve regurgitation or stenosis. VESSELS The inferior vena cava is normal in size. PERICARDIUM No pericardial effusion. Joey Vargas MD (Electronically Signed) Final Date:22 July 2017 21:02
[2017-07-23] VITALS (14 sets, daily range): BP systolic 1–174; BP diastolic 49–74; PULSE 83–96; RESP 18–20; TEMP 97.6–98.2; O2SAT 97–100
[2017-07-23] MEDS: RESP: ALBUTEROL 2.5 MG/IPRATROPIUM 0.5 MG NEB (SCH) INH ×4 (03:31→20:06)
[2017-07-23] MEDS: CHLORHEXIDINE GLUCONATE 2 % 1 PACK (2 CLOTHS) TOP SCH (04:00)
[2017-07-23] MEDS: LEVOTHYROXINE SODIUM 100 MCG TAB PO SCH (05:26)
[2017-07-23] MEDS: FOSPHENYTOIN SODIUM 100 MG PE/2 ML VIAL IV SCH ×3 (05:26→18:04)
[2017-07-23] MEDS: SEVELAMER CARBONATE 800 MG TAB PO SCH ×3 (08:00→17:00)
[2017-07-23] MEDS: CHLORHEXIDINE 0.12% (ORAL KIT) 15 ML CUP MT SCH ×2 (08:00→20:00)
[2017-07-23] MEDS: INSULIN ASPART SUPPLEMENTAL SCALE SQ SCH ×4 (08:00→21:00)
[2017-07-23] MEDS: RANOLAZINE 500 MG EXTENDED RELEASE TAB PO SCH ×2 (08:18→21:43)
[2017-07-23] MEDS: ASPIRIN 81 MG CHEW TAB CHEW SCH (08:18)
[2017-07-23] MEDS: DOCUSATE SODIUM 50 MG/SENNA 8.6 MG TAB PO SCH ×2 (08:18→21:43)
[2017-07-23] MEDS: EZETIMIBE 10 MG TAB PO SCH (08:18)
[2017-07-23] MEDS: FAMOTIDINE 20 MG/2 ML VIAL IV PUSH SCH ×2 (08:19→21:43)
[2017-07-23] MEDS: SODIUM CHLORIDE 0.9% FLUSH 10 ML FLUSH IV FLUSH SCH ×2 (08:21→20:42)
--- NOTE | 2017-07-23 10:28 | HHI.CCPN ---
Subjective Remarks/Hospital Course This is a 67-year-old male, that was admitted to inpatient psychiatry unit. Per report, the patient has a seizure disorder, and previous attempts have been made to obtain EEG. Dr. Salas, neurologist. The patient had been having falls for the past several days, and subsequently had a laceration in the posterior scalp. Today the patient was noted to be in the day room having a tonic-clonic seizure, and subsequent unresponsiveness. A Halicat was initiated , and the patient was transferred to [facility]. Upon my evaluation the patient was nonresponsive, O2 saturation was 97%, the patient was unable to protect airway. The patient was emergently intubated, and placed on a ventilator. A stat chest x-ray was performed which showed a posterolateral 7th rib fracture. A stat CT of the brain was obtained, results negative. Stat EEG was obtained prior to initiation of sedation, the patient was then loaded with fosphenytoin. Critical care is requested for management. SUBJ 07/20: Patient remains intubated off, follows commands intermittently. He follows commands, EEG report is pending at this time. LP ordered by Dr. Salas today. GI consulted for gall stone and dilated extrahepatic bile duct. Developed hypotension started on Chris-Synephrine currently at 80 mcg/min 07/21: Remains intubated sedated, getting hemodialysis today, remains on Chris- Synephrine at 60 mcg/min. LP showed CSF pleocytosis, ? postictal. ID consult pending. On Rocephin and acyclovir per neuro 07/22: Patient remains intubated off sedation now following commands. Low tidal volumes on CPAP. MRCP shows non obstructing choledocholithiasis. Will need ERCP. 07/23: Lying in bed intermittently agitated. HSV negative acyclovir and ceftriaxone discontinued by ID. Patient will need ERCP planned for the next 24- 48 hours. Echo shows Diffuse moderate thickening and calcification of the aortic valve, mean gradient is 30 mmHg suggestive of moderate aortic stenosis Objective Vital Signs Date Time Temp Pulse Resp B/P (MAP) Pulse Ox O2 Delivery O2 Flow Rate FiO2 07/23/17 08:00 97.7 85 20 124/56 (78) 100 07/23/17 07:12 21 07/22/17 20:21 Nasal Cannula 2.00 Intake and Output 07/23/17 07/23/17 07/24/17 08:00 16:00 00:00 Output Total 0 ml Balance 0 ml Result Diagram: 07/22/17 1023 07/22/17 1023 Other Results Microbiology Date/Time Source Procedure Growth Status 07/20/17 14:58 Cerebral Spinal Fluid Lumbar Puncture Gram Stain - Final Complete 07/20/17 14:58 Cerebral Spinal Fluid Lumbar Puncture CSF Culture - Final NO GROWTH IN 72 HOURS Complete Imaging Last Impressions Head CT 07/19/17 0000 Signed Impressions: Service Date/Time: Wednesday, July 19, 2017 17:39 - CONCLUSION: Normal examination. Juan Sarkar MD Chest X-Ray 07/19/17 0000 Signed Impressions: Service Date/Time: Wednesday, July 19, 2017 15:59 - CONCLUSION: 1. ET tube is at the level of the katarzyna and needs to be withdrawn 2 cm. 2. Mildly displaced fracture of the posterolateral right 7th rib. Klaus Schneider MD Objective Remarks GENERAL: Critically ill-appearing well-developed well-nourished lying in bed, in restraints due to agitation SKIN: Warm and dry. HEAD: Atraumatic. Normocephalic. EYES: Pupils equal and round. No scleral icterus. No injection or drainage. ENT: No nasal bleeding or discharge. Mucous membranes pink and moist. NECK: Trachea midline. No JVD. CARDIOVASCULAR: Normal rate, regular rhythm. Systolic murmur heard in all areas most likely secondary to AV fistula, and RESPIRATORY: No accessory muscle use. Clear to auscultation. Breath sounds equal bilaterally. GASTROINTESTINAL: Abdomen soft, non-tender, nondistended. No guarding. MUSCULOSKELETAL: Extremities without clubbing, cyanosis, or edema. No obvious deformities. NEUROLOGICAL: RASS -0. Moving extremities 4 follows commands intermittently. No focal deficits A/P Assessment and Plan 67 year old male emergently intubated for airway protection after experiencing active seizures. CXR mildly displaced 7th rib fracture. Patient is critically ill. Plan by systems: Neurologic: Seizure disorder Mood disorder Dementia Neurology following- Dr. Salas. LP, CSF pleocytosis Off Rocephin and acyclovir per ID. HSV negative EEG no active seizures Fosphenytoin 1g load, then fosphenytoin 100 mg TID Ativan for active seizures, and agitation seizure precautions Ammonia level <10 Postictal state improved Avoid Haldol secondary to seizure Respiratory: Acute hypoxemic respiratory failure Patient intubated with 8.0 ETT, initially 24 cm at the lip, retracted to 22 cm @ lip post CXR Extubated 07/22, Tolerating well 07/19 chest [id number] seventh rib fracture Wean FiO2, to maintain O2sat greater than 92% Duo nebs every 6 hours scheduled, every 2 hours when necessary Cardiovascular: Moderate on Echo Cardiovascular disease History of hypertension Echo: Diffuse moderate thickening and calcification of the aortic valve. Mean gradient is 30 mmHg suggestive of moderate aortic stenosis Continue previous medications rosuvastatin 40 mg/at bedtime, continue ASA 81 mg/ day continue Ranexa ER 1gm BID, Holding Isordil 60 mg/day, Carvedilol 12.5 BID due to hypotension. Restart when appropriate Patient's previous medication includes losartan, Isordil will hold for now Renal: ESRD Nephrology following-Dr. Hernadez Hemodialysis per nephrology Strict I/Os Continue previous meds FEN/GI: Gall stones, nonobstructing choledocholithiasis Electrolyte derangement Hyperlipidemia MRCP yesterday shows nonobstructing choledocholithiasis. Gallbladder ultrasound- Dilated extrahepatic biliary duct, gallstone GI following need ERCP, planned for Monday or Monday per Dr Rahcel Continue Sevelamer 800 mg TID Continue Zetia 10mg/d Creatinine kinase 918 F/U LFT's Heme/ID: Monitor CBC F/u cx, f/u HSV ABX per ID currently on Cefepime. Off Rocephin and acyclovir Endocrine: Hypothyroidism Continue levothyroxine 100 mg/day Glucose monitoring per ICU protocol -- SSI Prophylaxis: GI Prophylaxis Famotidine BID DVT Prophylaxis -- SCDs Heparin BID Lines: Peripheral IVs 2. Central line if indicated Dispo: my billing statement Level 3 Continue ICU care due to significant agitation, need for ERCP Consider OP referral to cardiology for moderate Janelle Martinez MD Jul 23, 2017 10:28
--- NOTE | 2017-07-23 10:34 | HHI.NPPN ---
Subjective History of Present Illness 67 year old with ESRD, on Hemodialysis, admitted with seizures, he was intubated Additional Remarks no acute complaints Objective Data Data Vital Signs Date Time Temp Pulse Resp B/P (MAP) Pulse Ox O2 Delivery O2 Flow Rate FiO2 07/23/17 08:00 97.7 85 20 124/56 (78) 100 07/23/17 07:12 99 21 07/23/17 06:00 83 07/23/17 04:00 98.2 83 20 1/57 (39) 97 07/23/17 04:00 83 07/23/17 02:00 85 07/23/17 00:00 98.0 85 20 117/57 (77) 97 07/23/17 00:00 85 07/22/17 22:00 85 07/22/17 20:21 100 Nasal Cannula 2.00 07/22/17 20:00 97.9 85 18 117/57 (77) 95 07/22/17 20:00 86 07/22/17 18:00 82 07/22/17 16:00 82 07/22/17 16:00 98.9 82 20 105/55 (72) 99 07/22/17 14:00 83 07/22/17 12:00 97.7 83 18 108/55 (72) 100 07/22/17 12:00 83 -: 07/22/17 1023 07/22/17 1023 Physical Exam General Appearance: Well Developed Pulmonary Resp Exam: Clear Bilaterally Cardiology CV Exam: Regular Gastrointestinal/Abdomen GI Exam: Soft, Non-Tender, Bowel Sounds Present Extremeties Extremities Exam: No Edema Assessment/Plan Problem List: (1) ESRD (end stage renal disease) on dialysis ICD Codes: N18.6 - End stage renal disease; Z99.2 - Dependence on renal dialysis Plan: HD done Monday Volume status and electrolytes stable. Will plan next HD Monday, continue MWF HD. Patient had MRCP had filling defect 5 mm bile duct and gallstones Planned ERCP Monday or Monday Status post LP on acyclovir - possible encephalitis (2) Seizures ICD Codes: R56.9 - Unspecified convulsions Plan: Neurology following on Cerebyx Ignacio King MD Jul 23, 2017 10:34
[2017-07-23 15:02] LABS: ALBUMIN 2.8 GM/DL (3.4-5.0); ALKALINE PHOSPHATASE 218 U/L (45-117); ALT (GPT) 34 U/L (12-78); AST (GOT) 58 U/L (15-37); BICARBONATE 28.5 MEQ/L (21.0-32.0); BLOOD UREA NITROGEN 88 MG/DL (7-18); CALCIUM 8.4 MG/DL (8.5-10.1); CHLORIDE 97 MEQ/L (98-107); CREATININE 9.79 MG/DL (0.60-1.30); GLOMERULAR FILTRATION RATE 5 ML/MIN (>89); GLUCOSE,RANDOM 122 MG/DL (74-106); SODIUM (NA) 138 MEQ/L (136-145); TOTAL BILIRUBIN ADULT 1.3 MG/DL (0.2-1.0); TOTAL PROTEIN 7.1 GM/DL (6.4-8.2)
--- NOTE | 2017-07-23 15:19 | HHI.PR ---
Addendum to Inpatient Note Additional Information CFTX was changed to cefepime since CFTX potential to cause billiary sludge cont cefpeime for now fu neuro status Kenyatta Durbin MD Jul 23, 2017 15:19
[2017-07-23 15:28] LABS: CSF CRYPTOCOCCUS AG CONF ND (NOT DETECTD)
--- NOTE | 2017-07-23 16:23 | HHI.GIFU ---
Subjective Remarks Sitting up in bed viewing window Altered mental status confusion, pulling off O2 sat Awake, verbalizes but not always appropriate Afebrile (Erum Ruiz) Objective Vitals I&O Vital Signs Date Time Temp Pulse Resp B/P (MAP) Pulse Ox O2 Delivery O2 Flow Rate FiO2 07/23/17 14:00 96 07/23/17 12:00 92 07/23/17 12:00 98.0 92 137/61 (86) 98 07/23/17 10:00 91 07/23/17 08:00 97.7 85 20 124/56 (78) 100 07/23/17 08:00 85 07/23/17 07:12 99 21 07/23/17 06:00 83 07/23/17 04:00 98.2 83 20 1/57 (39) 97 07/23/17 04:00 83 07/23/17 02:00 85 07/23/17 00:00 98.0 85 20 117/57 (77) 97 07/23/17 00:00 85 07/22/17 22:00 85 07/22/17 20:21 100 Nasal Cannula 2.00 07/22/17 20:00 97.9 85 18 117/57 (77) 95 07/22/17 20:00 86 07/22/17 18:00 82 I/O 07/22/17 07/22/17 07/22/17 07/23/17 07/23/17 07/23/17 07:00 15:00 23:00 07:00 15:00 23:00 Intake Total 310 ml 100 ml Output Total 0 ml 0 ml 0 ml Balance 310 ml 100 ml 0 ml 0 ml Intake IV Total 250 ml 100 ml Other 60 ml Output Urine Total 0 ml 0 ml 0 ml # Bowel Movements 0 0 0 Laboratory Laboratory Tests Test 07/23/17 13:40 Blood Urea Nitrogen 88 Creatinine 9.79 Random Glucose 122 Total Protein 7.1 Albumin 2.8 Calcium Level 8.4 Alkaline Phosphatase 218 Aspartate Amino Transf (AST/SGOT) 58 Alanine Aminotransferase (ALT/SGPT) 34 Total Bilirubin 1.3 Sodium Level 138 Potassium Level 4.6 Chloride Level 97 Carbon Dioxide Level 28.5 Anion Gap 13 Estimat Glomerular Filtration Rate 5 Date/Time Source Procedure Growth Status 07/21/17 01:00 Blood Peripheral Aerobic Blood Culture - Preliminary NO GROWTH IN 2 DAYS Resulted 2/23/18 01:00 Blood Peripheral Anaerobic Blood Culture - Preliminary NO GROWTH IN 2 DAYS Resulted 07/20/17 14:58 Cerebral Spinal Fluid Lumbar Puncture Fungal Smear - Final NO FUNGAL ELEMENTS SEEN. Resulted 07/20/17 14:58 Cerebral Spinal Fluid Lumbar Puncture Fungal Culture Pending Resulted Imaging Last Impressions Chest X-Ray 07/22/17 0000 Signed Impressions: Service Date/Time: Saturday, July 22, 2017 08:04 - CONCLUSION: 1. Persistent but slight improvement at the right lower lobe consolidation or atelectasis. 2. ET tube in good position. 3. NG tube in the upper stomach. The side port is at the EG junction region. The NG tube could be mildly advanced. Juan Dai MD Cholangiopancreatography MRI 07/21/17 0000 Signed Impressions: Service Date/Time: Friday, July 21, 2017 12:23 - CONCLUSION: 1. Tiny gallstones. 2. Dilated common bile duct and common hepatic duct with a solitary 5 mm filling defect in common bile duct. 3. Right pleural effusion and ascites right upper quadrant . Klaus Schneider MD Lumbar Puncture Fluoroscopy 07/20/17 0000 Signed Impressions: Service Date/Time: June 14:34 - CONCLUSION: Uncomplicated fluoroscopically guided lumbar puncture. Klaus Haley Jr., MD Gall Bladder Ultrasound 07/20/17 0000 Signed Impressions: Service Date/Time: June 08:54 - CONCLUSION: Gallstone. Moderate extrahepatic biliary ductal dilatation End-stage right kidney Juan Sarkar MD Head CT 07/19/17 0000 Signed Impressions: Service Date/Time: Wednesday, July 19, 2017 17:39 - CONCLUSION: Normal examination. Juan Sarkar MD Physical Exam HEENT: Normocephalic; atraumatic, CHEST: Decreased breathing sounds, ET tube out yesterday, CARDIAC: RRR ABDOMEN: Soft, nondistended, bowel sounds active EXTREMITIES: No clubbing, cyanosis, or edema. SKIN: Normal; no rash; no jaundice. 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 End-stage right kidney - ESRD- hemodialysis M,W,F do tomorrow a.m. Labs ,total bilirubin 1. 3 MRCP showed common bile duct stone Hemoglobin 8. Which is a 1 g decrease in 24 hours Plan: Diet, renal Patient will need ERCP when more stable possibly Monday or Monday Continue monitor lab with special attention to hemoglobin Monitor for any acute bleeding Supportive care Patient was seen by myself and Dr. Barr, no was done on his behalf (Erum Ruiz) Plan Patient was seen and examined, agree with above-noted, we will see if he is stable tomorrow we will consider ERCP for Monday (Beth Barr MD) Erum Ruiz Jul 23, 2017 16:23 Beth Barr MD Jul 23, 2017 18:22
[2017-07-23] MEDS: LORazepam 2 MG/ML VIAL IV PRN (18:53)
[2017-07-23] MEDS: ATORVASTATIN 80 MG TAB PO SCH (21:43)
[2017-07-24] VITALS (13 sets, daily range): BP systolic 149–170; BP diastolic 70–82; PULSE 77–106; RESP 16–17; TEMP 98–100.8; O2SAT 98–100
[2017-07-24] MEDS: FOSPHENYTOIN SODIUM 100 MG PE/2 ML VIAL IV SCH ×4 (00:08→17:01)
[2017-07-24] MEDS: RESP: ALBUTEROL 2.5 MG/IPRATROPIUM 0.5 MG NEB (SCH) INH ×4 (03:22→21:07)
[2017-07-24] MEDS: CHLORHEXIDINE GLUCONATE 2 % 1 PACK (2 CLOTHS) TOP SCH (04:00)
[2017-07-24 04:45] LABS: BASOPHIL % 0.2 % (0.0-2.0); EOSINOPHIL # 0.2 TH/MM3 (0-0.4); EOSINOPHIL % 2.7 % (0.0-4.0); HEMATOCRIT 24.3 % (39.0-51.0); HEMOGLOBIN 8.3 GM/DL (13.0-17.0); LYMPH % 10.1 % (9.0-44.0); LYMPHOCYTE # 0.8 TH/MM3 (1.0-4.8); MEAN CELL VOLUME 90.5 FL (80.0-100.0); MEAN CORPUSCULAR HEMOGLOBIN 30.8 PG (27.0-34.0); MEAN CORPUSCULAR HGB CONC 34.1 % (32.0-36.0); MEAN PLATELET VOLUME 9.7 FL (7.0-11.0); MONO % 8.9 % (0.0-8.0); MONOCYTE # 0.7 TH/MM3 (0-0.9); NEUT % 78.1 % (16.0-70.0); PLATELET COUNT 166 TH/MM3 (150-450); RED BLOOD COUNT 2.68 MIL/MM3 (4.50-5.90); RED CELL DISTRIBUTION WIDTH 15.5 % (11.6-17.2); WHITE BLOOD COUNT 7.7 TH/MM3 (4.0-11.0)
[2017-07-24 05:12] LABS: ALBUMIN 2.6 GM/DL (3.4-5.0); ALKALINE PHOSPHATASE 217 U/L (45-117); ALT (GPT) 31 U/L (12-78); AST (GOT) 47 U/L (15-37); BICARBONATE 26.5 MEQ/L (21.0-32.0); BLOOD UREA NITROGEN 100 MG/DL (7-18); CALCIUM 8.5 MG/DL (8.5-10.1); CHLORIDE 97 MEQ/L (98-107); GLOMERULAR FILTRATION RATE 5 ML/MIN (>89); GLUCOSE,RANDOM 105 MG/DL (74-106); SODIUM (NA) 138 MEQ/L (136-145); TOTAL BILIRUBIN ADULT 1.4 MG/DL (0.2-1.0); TOTAL PROTEIN 6.7 GM/DL (6.4-8.2)
[2017-07-24] MEDS: LEVOTHYROXINE SODIUM 100 MCG TAB PO SCH (05:13)
[2017-07-24 05:20] LABS: CREATININE 10.88 MG/DL (0.60-1.30)
--- NOTE | 2017-07-24 05:38 | RADRPT ---
EXAM DATE/TIME: 07/24/2017 03:51 [facility] COMPARISON: CHEST SINGLE AP, July 22, 2017, 8:04. INDICATIONS : Shortness of breath, possible pulmonary disease. MEDICAL HISTORY : Renal failure, chronic. SURGICAL HISTORY : CABG. IVC filter placement. ENCOUNTER: Subsequent ACUITY: 1 week PAIN SCORE: Non-responsive. LOCATION: Bilateral chest FINDINGS: Patient has been extubated and NGT removed. Mild diffuse interstitial prominence with subtle patchy r ight lower lung zone airspace disease. Cardiomediastinal contours are stable. Remainder of the exam i s unchanged. CONCLUSION: 1. Status post extubation with stable subtle patchy right lower lung zone airspace disease. Vik Colmenares MD on July 24, 2017 at 5:36 Board Certified Radiologist. This report was verified electronically.
[2017-07-24] MEDS: INSULIN ASPART SUPPLEMENTAL SCALE SQ SCH ×4 (08:00→20:02)
[2017-07-24] MEDS: SEVELAMER CARBONATE 800 MG TAB PO SCH ×3 (08:00→16:15)
[2017-07-24] MEDS: CHLORHEXIDINE 0.12% (ORAL KIT) 15 ML CUP MT SCH ×2 (08:00→20:00)
[2017-07-24] MEDS: DOCUSATE SODIUM 50 MG/SENNA 8.6 MG TAB PO SCH ×2 (08:47→19:59)
[2017-07-24] MEDS: RANOLAZINE 500 MG EXTENDED RELEASE TAB PO SCH ×3 (09:00→21:00)
[2017-07-24] MEDS: FAMOTIDINE 20 MG/2 ML VIAL IV PUSH SCH ×2 (09:54→20:00)
[2017-07-24] MEDS: EZETIMIBE 10 MG TAB PO SCH (09:54)
[2017-07-24] MEDS: ASPIRIN 81 MG CHEW TAB CHEW SCH (09:55)
[2017-07-24] MEDS: SODIUM CHLORIDE 0.9% FLUSH 10 ML FLUSH IV FLUSH SCH ×2 (09:55→20:01)
[2017-07-24 10:15] LABS: RPR SCREEN FOR REFLEX NON-REACTIVE (NON-REACTVE)
[2017-07-24] MEDS: GELATIN 12 MM/7 MM FOAM TOPICAL PRN (13:28)
--- NOTE | 2017-07-24 15:18 | HHI.IDPN ---
Subjective Subjective Remarks Seen earlier today artound 11 am Delayed entry Pt is extubated On NC O2 Confused, but conversant, recognaises his family memebers dw dgtr;' pt's smx started about 2.5 weeks ago (fever, confusin), later he developped new onset seizures He is now afebrile, his blood and CSF clx are negative Antibiotics cefepime Allergies: Coded Allergies: No Known Allergies (Unverified , 07/15/17) Objective . Vital Signs Date Time Temp Pulse Resp B/P (MAP) Pulse Ox O2 Delivery O2 Flow Rate FiO2 07/24/17 14:00 86 07/24/17 12:00 87 07/24/17 12:00 98.3 87 17 160/82 (108) 100 07/24/17 10:00 81 07/24/17 08:00 98.2 80 16 149/70 (96) 100 07/24/17 08:00 80 07/24/17 06:00 77 07/24/17 04:00 80 07/24/17 04:00 98.3 80 17 149/71 (97) 100 07/24/17 02:00 84 07/24/17 00:00 98.0 87 16 166/75 (105) 100 07/24/17 00:00 87 07/23/17 22:00 91 07/23/17 20:06 100 21 07/23/17 20:00 97.6 92 18 174/74 (107) 100 07/23/17 20:00 89 07/23/17 18:00 88 07/23/17 16:00 97.8 90 163/72 (102) 100 07/23/17 16:00 90 07/23/17 16:00 90 . Laboratory Tests Test 07/24/17 04:25 White Blood Count 7.7 TH/MM3 Red Blood Count 2.68 MIL/MM3 Hemoglobin 8.3 GM/DL Hematocrit 24.3 % Mean Corpuscular Volume 90.5 FL Mean Corpuscular Hemoglobin 30.8 PG Mean Corpuscular Hemoglobin Concent 34.1 % Red Cell Distribution Width 15.5 % Platelet Count 166 TH/MM3 Mean Platelet Volume 9.7 FL Neutrophils (%) (Auto) 78.1 % Lymphocytes (%) (Auto) 10.1 % Monocytes (%) (Auto) 8.9 % Eosinophils (%) (Auto) 2.7 % Basophils (%) (Auto) 0.2 % Neutrophils # (Auto) 6.0 TH/MM3 Lymphocytes # (Auto) 0.8 TH/MM3 Monocytes # (Auto) 0.7 TH/MM3 Eosinophils # (Auto) 0.2 TH/MM3 Basophils # (Auto) 0.0 TH/MM3 CBC Comment DIFF FINAL Differential Comment Laboratory Tests Test 07/23/17 13:40 07/24/17 04:25 Blood Urea Nitrogen 88 MG/DL 100 MG/DL Creatinine 9.79 MG/DL 10.88 MG/DL Random Glucose 122 MG/DL 105 MG/DL Total Protein 7.1 GM/DL 6.7 GM/DL Albumin 2.8 GM/DL 2.6 GM/DL Calcium Level 8.4 MG/DL 8.5 MG/DL Alkaline Phosphatase 218 U/L 217 U/L Aspartate Amino Transf (AST/SGOT) 58 U/L 47 U/L Alanine Aminotransferase (ALT/SGPT) 34 U/L 31 U/L Total Bilirubin 1.3 MG/DL 1.4 MG/DL Sodium Level 138 MEQ/L 138 MEQ/L Potassium Level 4.6 MEQ/L 4.5 MEQ/L Chloride Level 97 MEQ/L 97 MEQ/L Carbon Dioxide Level 28.5 MEQ/L 26.5 MEQ/L Anion Gap 13 MEQ/L 15 MEQ/L Estimat Glomerular Filtration Rate 5 ML/MIN 5 ML/MIN Imaging Last Impressions Chest X-Ray 07/24/17 0600 Signed Impressions: Service Date/Time: Monday, July 24, 2017 03:51 - CONCLUSION: 1. Status post extubation with stable subtle patchy right lower lung zone airspace disease. Vik Colmenares MD Cholangiopancreatography MRI 07/21/17 0000 Signed Impressions: Service Date/Time: Friday, July 21, 2017 12:23 - CONCLUSION: 1. Tiny gallstones. 2. Dilated common bile duct and common hepatic duct with a solitary 5 mm filling defect in common bile duct. 3. Right pleural effusion and ascites right upper quadrant . Klaus Schneider MD Lumbar Puncture Fluoroscopy 07/20/17 0000 Signed Impressions: Service Date/Time: June 14:34 - CONCLUSION: Uncomplicated fluoroscopically guided lumbar puncture. Klaus Haley Jr., MD Gall Bladder Ultrasound 07/20/17 0000 Signed Impressions: Service Date/Time: June 08:54 - CONCLUSION: Gallstone. Moderate extrahepatic biliary ductal dilatation End-stage right kidney Juan Sarkar MD Head CT 07/19/17 0000 Signed Impressions: Service Date/Time: Wednesday, July 19, 2017 17:39 - CONCLUSION: Normal examination. Juan Sarkar MD Physical Exam CONSTITUTIONAL/GENERAL: This is an adequately nourished patient, in no apparent distress. TUBES/LINES/DRAINS: RUE AV graft in palce with good thrill SKIN: No jaundice, rashes, or lesions. Ecchymoses on upper extremities. No wounds seen anteriorly. Skin temperature appropriate. Not diaphoretic. CARDIOVASCULAR: irregular rate and rhythm 4-5 holosystolic harsh murmur with max on aorta, gallops, or rubs. No JVD. Peripheral pulses symmetric. RESPIRATORY/CHEST: Symmetric, unlabored respirations. Clear to auscultation. Breath sounds equal bilaterally. No wheezes, rales, or rhonchi. GASTROINTESTINAL: Abdomen soft, non-tender, nondistended. No hepato-splenomegaly , or palpable masses. No guarding. Bowel sounds present. GENITOURINARY: Without palpable bladder distension. Marshall catheter in place. MUSCULOSKELETAL: Extremities without clubbing, cyanosis, or edema. No joint tenderness or effusion noted. No calf tenderness. No mottling or clubbing. LYMPHATICS: No palpable cervical or supraclavicular adenopathy. NEUROLOGICAL: awake alert confused. He is oriented x 2 and follows commands PSYCHIATRIC: calm and cooperative Assessment & Plan Remarks Suspected encephalitis - HSV negative Biliary duct dilation with elevation of Alk phos and T bili ESRD / HD dc cefepime fu VDRL chk HIV status Kenyatta Durbin MD Jul 24, 2017 15:18
[2017-07-24] MEDS: LORazepam 2 MG/ML VIAL IV PRN ×2 (16:18→16:42)
--- NOTE | 2017-07-24 16:59 | HHI.NPPN ---
Subjective History of Present Illness 67 year old with ESRD, on Hemodialysis, admitted with seizures, he was intubated Additional Remarks confused Objective Data Data 07/24/17 07/25/17 19:00 07:00 Output Total 2000 ml Balance -2000 ml Hemodialysis 2000 ml Vital Signs Date Time Temp Pulse Resp B/P (MAP) Pulse Ox O2 Delivery O2 Flow Rate FiO2 07/24/17 16:00 97 07/24/17 16:00 98.6 97 17 166/70 (102) 100 07/24/17 14:00 86 07/24/17 12:00 87 07/24/17 12:00 98.3 87 17 160/82 (108) 100 07/24/17 10:00 81 07/24/17 08:00 98.2 80 16 149/70 (96) 100 07/24/17 08:00 80 07/24/17 06:00 77 07/24/17 04:00 80 07/24/17 04:00 98.3 80 17 149/71 (97) 100 07/24/17 02:00 84 07/24/17 00:00 98.0 87 16 166/75 (105) 100 07/24/17 00:00 87 07/23/17 22:00 91 07/23/17 20:06 100 21 07/23/17 20:00 97.6 92 18 174/74 (107) 100 07/23/17 20:00 89 07/23/17 18:00 88 -: 07/24/17 0425 07/24/17 0425 Physical Exam General Appearance: Well Developed Pulmonary Resp Exam: Clear Bilaterally Cardiology CV Exam: Regular Gastrointestinal/Abdomen GI Exam: Soft, Non-Tender, Bowel Sounds Present Extremeties Extremities Exam: No Edema Assessment/Plan Problem List: (1) ESRD (end stage renal disease) on dialysis ICD Codes: N18.6 - End stage renal disease; Z99.2 - Dependence on renal dialysis Plan: HD done Monday Volume status and electrolytes stable. HD done 2 L off today Patient had MRCP had filling defect 5 mm bile duct and gallstones Planned ERCP Monday Status post LP encephalitis ruled out (2) Seizures ICD Codes: R56.9 - Unspecified convulsions Plan: Neurology following on CerebJoshua Peguero MD Jul 24, 2017 16:59
[2017-07-24] MEDS: LORazepam 2 MG/ML VIAL IV PUSH PRN (19:59)
[2017-07-24] MEDS: ATORVASTATIN 80 MG TAB PO SCH (20:00)
[2017-07-25] VITALS (13 sets, daily range): BP systolic 122–163; BP diastolic 57–86; PULSE 71–95; RESP 16–18; TEMP 97–98.7; O2SAT 95–100
[2017-07-25] MEDS: RESP: ALBUTEROL 2.5 MG/IPRATROPIUM 0.5 MG NEB (SCH) INH ×2 (03:12→09:21)
[2017-07-25] MEDS: CHLORHEXIDINE GLUCONATE 2 % 1 PACK (2 CLOTHS) TOP SCH (03:13)
[2017-07-25] MEDS ORDERED: FUROSEMIDE 40 MG/4 ML VIAL IV PUSH ONE (03:15)
[2017-07-25] MEDS: FOSPHENYTOIN SODIUM 100 MG PE/2 ML VIAL IV SCH ×5 (05:48→23:02)
[2017-07-25] MEDS: LEVOTHYROXINE SODIUM 100 MCG TAB PO SCH (05:48)
[2017-07-25] MEDS: SEVELAMER CARBONATE 800 MG TAB PO SCH ×3 (07:15→17:00)
[2017-07-25] MEDS: CHLORHEXIDINE 0.12% (ORAL KIT) 15 ML CUP MT SCH ×2 (07:15→20:00)
[2017-07-25] MEDS: DOCUSATE SODIUM 50 MG/SENNA 8.6 MG TAB PO SCH ×2 (07:16→23:00)
[2017-07-25] MEDS: RANOLAZINE 500 MG EXTENDED RELEASE TAB PO SCH ×2 (07:16→23:00)
[2017-07-25] MEDS: INSULIN ASPART SUPPLEMENTAL SCALE SQ SCH ×4 (08:00→21:00)
[2017-07-25] MEDS: EZETIMIBE 10 MG TAB PO SCH (09:10)
[2017-07-25] MEDS: ASPIRIN 81 MG CHEW TAB CHEW SCH (09:10)
[2017-07-25] MEDS: SODIUM CHLORIDE 0.9% FLUSH 10 ML FLUSH IV FLUSH SCH ×2 (09:10→21:00)
[2017-07-25] MEDS: FAMOTIDINE 20 MG/2 ML VIAL IV PUSH SCH ×2 (09:10→23:00)
[2017-07-25] MEDS ORDERED: PROPOFOL 200 MG/20 ML AMP IV ONE (12:00)
[2017-07-25] MEDS ORDERED: STERILE WATER FOR INJECTION 20 ML VIAL IV ONE (12:00)
[2017-07-25] MEDS ORDERED: SODIUM CHLOR 0.9% 1000 ML INJ 1,000 ML IV ONE (12:00)
--- NOTE | 2017-07-25 12:04 | HHI.PYPN ---
Subjective Remarks Patient was not in his room, he was out in the OR having a procedure. I will revisit him tomorrow. Results Labs Test 07/25/17 04:30 Date/Time Source Procedure Growth Status 07/21/17 01:00 Blood Peripheral Aerobic Blood Culture - Preliminary NO GROWTH IN 4 DAYS Resulted 07/21/17 01:00 Blood Peripheral Anaerobic Blood Culture - Preliminary NO GROWTH IN 4 DAYS Resulted 07/20/17 14:58 Cerebral Spinal Fluid Lumbar Puncture Fungal Smear - Final NO FUNGAL ELEMENTS SEEN. Resulted 07/20/17 14:58 Cerebral Spinal Fluid Lumbar Puncture Fungal Culture Pending Resulted Vitals/IOs Vital Signs Date Time Temp Pulse Resp B/P (MAP) Pulse Ox O2 Delivery O2 Flow Rate FiO2 07/25/17 10:00 85 07/25/17 09:23 100 21 07/25/17 08:00 98.6 16 159/86 (110) 07/22/17 20:21 Nasal Cannula 2.00 Intake and Output 07/25/17 07/25/17 07/26/17 08:00 16:00 00:00 Intake Total 200 ml Output Total 0 ml Balance 200 ml Assessment & Plan Problem List: (1) DEMENTIA IN OTH DISEASES CLASSD ELSWHR W BEHAVIORAL DISTURB ICD Codes: F02.81 - DEMENTIA IN OTH DISEASES CLASSD ELSWHR W BEHAVIORAL DISTURB Assessment & Plan Estimated LOS: days Justification for Cont. Inpt. Patient was not in his room, he was out in the OR having a procedure. I will revisit him tomorrow. Ravin Conrad MD Jul 25, 2017 12:04
[2017-07-25] MEDS ORDERED: MIDAZOLAM HCL 2 MG/2 ML VIAL ONE (12:31)
--- NOTE | 2017-07-25 14:11 | HHI.NPPN ---
Subjective History of Present Illness 67 year old with ESRD, on Hemodialysis, admitted with seizures, he was intubated Additional Remarks confused Objective Data Data 07/25/17 07/26/17 19:00 07:00 Intake Total 900 ml Balance 900 ml Other 900 ml Vital Signs Date Time Temp Pulse Resp B/P (MAP) Pulse Ox O2 Delivery O2 Flow Rate FiO2 07/25/17 10:00 85 07/25/17 09:23 100 21 07/25/17 08:00 98.6 84 16 159/86 (110) 100 07/25/17 08:00 84 07/25/17 06:00 86 07/25/17 04:00 84 07/25/17 04:00 98.7 85 150/74 (99) 07/25/17 02:00 86 07/25/17 00:00 92 07/25/17 00:00 98.3 95 147/68 (94) 100 07/24/17 22:00 93 07/24/17 21:07 98 21 07/24/17 20:00 93 07/24/17 20:00 100.8 106 170/78 (108) 100 07/24/17 18:00 104 07/24/17 16:00 97 07/24/17 16:00 98.6 97 17 166/70 (102) 100 -: 07/24/17 0425 07/24/17 0425 Physical Exam General Appearance: Well Developed Pulmonary Resp Exam: Clear Bilaterally Cardiology CV Exam: Regular Gastrointestinal/Abdomen GI Exam: Soft, Non-Tender, Bowel Sounds Present Extremeties Extremities Exam: No Edema Assessment/Plan Problem List: (1) ESRD (end stage renal disease) on dialysis ICD Codes: N18.6 - End stage renal disease; Z99.2 - Dependence on renal dialysis Plan: HD done Monday Volume status and electrolytes stable. HD done 2 L off YESTERDAY Patient had MRCP had filling defect 5 mm bile duct and gallstones Planned ERCP Monday Status post LP encephalitis ruled out (2) Seizures ICD Codes: R56.9 - Unspecified convulsions Plan: Neurology following on Joshua Butler MD Jul 25, 2017 14:11
--- NOTE | 2017-07-25 16:14 | RADRPT ---
EXAM DATE/TIME: 07/25/2017 12:53 [facility] COMPARISON: No previous studies available for comparison. INDICATIONS : Attempted ERCP. MEDICAL HISTORY : Renal failure, chronic. SURGICAL HISTORY : CABG IVC Filter placement. ENCOUNTER: Subsequent ACUITY: 1 week PAIN SCORE: Non-responsive. LOCATION: Abdomen. FINDINGS: Examination of the abdomen demonstrates ERCP scope seen. There does appear to be some minimal contras t within a duct and may be pancreatic. CONCLUSION: Attempted ERCP as described above. Tiago Butcher MD on July 25, 2017 at 16:12 Board Certified Radiologist. This report was verified electronically.
[2017-07-25] MEDS: DEXTROSE 50% IN WATER 50 ML VIAL(D50) IV PUSH PRN (17:12)
--- NOTE | 2017-07-25 19:20 | HHI.PR ---
Subjective Remarks Patient is confused and not able to provide a coherent history today. ERCP has been completed this afternoon. Patient denies any pain. Objective Vital Signs Date Time Temp Pulse Resp B/P (MAP) Pulse Ox O2 Delivery O2 Flow Rate FiO2 07/25/17 16:23 98.0 75 17 163/77 (105) 100 07/25/17 16:00 72 07/25/17 14:07 96.3 77 18 106/59 (75) 100 07/25/17 10:00 85 07/25/17 09:23 100 21 07/25/17 08:00 98.6 84 16 159/86 (110) 100 07/25/17 08:00 84 07/25/17 06:00 86 07/25/17 04:00 84 07/25/17 04:00 98.7 85 150/74 (99) 07/25/17 02:00 86 07/25/17 00:00 92 07/25/17 00:00 98.3 95 147/68 (94) 100 07/24/17 22:00 93 07/24/17 21:07 98 21 07/24/17 20:00 93 07/24/17 20:00 100.8 106 170/78 (108) 100 I/O 07/24/17 07/24/17 07/24/17 07/25/17 07/25/17 07/25/17 07:00 15:00 23:00 07:00 15:00 23:00 Intake Total 100 ml 120 ml 200 ml 900 ml Output Total 0 ml 2000 ml 0 ml Balance 100 ml -1880 ml 200 ml 900 ml Intake Oral 100 ml 120 ml 200 ml Other 900 ml Output Urine Total 0 ml 0 ml 0 ml Hemodialysis 2000 ml # Bowel Movements 0 3 2 Result Diagram: 07/24/17 0425 07/24/17 0425 Objective Remarks GENERAL: NAD, A&Ox2 HEAD: Normocephalic. NECK: Supple, trachea midline. No lymphadenopathy. EYES: No scleral icterus. No injection or drainage. CARDIOVASCULAR: Regular rate and rhythm without murmurs, gallops, or rubs. RESPIRATORY: Breath sounds equal bilaterally. No accessory muscle use. GASTROINTESTINAL: Abdomen soft, non-tender, nondistended. MUSCULOSKELETAL: No cyanosis, or edema. SKIN: Warm and dry. NEURO: No focal neurological deficitis. A/P Problem List: (1) DEMENTIA IN OTH DISEASES CLASSD ELSWHR W BEHAVIORAL DISTURB ICD Code: F02.81 - DEMENTIA IN OTH DISEASES CLASSD ELSWHR W BEHAVIORAL DISTURB (2) ESRD (end stage renal disease) on dialysis ICD Code: N18.6 - End stage renal disease; Z99.2 - Dependence on renal dialysis (3) Seizures ICD Code: R56.9 - Unspecified convulsions (4) Alzheimer's disease with late onset ICD Code: G30.1 - Alzheimer's disease with late onset; F02.80 - Dementia in other diseases classified elsewhere without behavioral disturbance (5) Hypertension ICD Code: I10 - Essential (primary) hypertension (6) Hyperkalemia ICD Code: E87.5 - Hyperkalemia (7) Brief psychotic disorder ICD Code: F23 - Brief psychotic disorder Status: Acute Assessment and Plan 67 year old male admitted secondary to seizure, intubated at time of admission due to respiratory failure. Acute seizure No recurrence as far Monitor for recurrence Follow results from LP, CSF pleocytosis HSV is negative Rocephin and acyclovir were discontinued No signs of active seizure on EEG fosphenytoin 100 mg TID As needed Ativan for any seizure Avoid Haldol secondary to seizure Acute psychosis Mood disorder Possible dementia Encephalopathy Psychiatry following Continue supportive care Monitor for improvement Seventh rib fracture Supportive care Pain treatments as needed Acute hypoxemic respiratory failure Improved Patient extubated 07/22/17 Oxygen as needed Duo neb treatments as needed Moderate Cardiovascular disease Continue statin Continue Ranexa Continue aspirin Isordil resumed Coreg resumed History of hypertension Hypotension [place]il resumed Coreg resumed Follow blood pressures ESRD Nephrology following Follow renal function Dialysis on an as-needed basis Cholelithiasis nonobstructing choledocholithiasis Status post ERCP today GI following Hyperlipidemia Continue Sevelamer 800 mg TID Continue Zetia 10mg/d Hypothyroidism Continue levothyroxine 100 mg/day DVT Prophylaxis SCDs Ignacio Umana MD Jul 25, 2017 19:20
[2017-07-25 19:53] LABS: VDRL CSF NON-REACTIVE (NON-REACTVE)
[2017-07-25] MEDS: ATORVASTATIN 80 MG TAB PO SCH (23:00)
[2017-07-25] MEDS: CARVEDILOL 12.5 MG TAB PO SCH (23:00)
[2017-07-25] MEDS: LORazepam 2 MG/ML VIAL IV PRN (23:12)
[2017-07-26] VITALS (9 sets, daily range): BP systolic 114–146; BP diastolic 58–73; PULSE 71–107; RESP 16–18; TEMP 97–98.2; O2SAT 95–100
[2017-07-26] MEDS ORDERED: DO NOT ADM ANY ANTICOAGULANT DRUGS PRN (03:30)
[2017-07-26] MEDS: CHLORHEXIDINE GLUCONATE 2 % 1 PACK (2 CLOTHS) TOP SCH (04:00)
[2017-07-26 06:17] LABS: AUTOMATED NEUTROPHIL # 5.5 TH/MM3 (1.8-7.7); BASOPHIL % 0.3 % (0.0-2.0); EOSINOPHIL # 0.4 TH/MM3 (0-0.4); EOSINOPHIL % 4.9 % (0.0-4.0); HEMATOCRIT 23.5 % (39.0-51.0); HEMOGLOBIN 8.1 GM/DL (13.0-17.0); LYMPH % 12.9 % (9.0-44.0); MEAN CELL VOLUME 90.5 FL (80.0-100.0); MEAN CORPUSCULAR HEMOGLOBIN 31.1 PG (27.0-34.0); MEAN CORPUSCULAR HGB CONC 34.4 % (32.0-36.0); MEAN PLATELET VOLUME 9.7 FL (7.0-11.0); MONO % 9.6 % (0.0-8.0); MONOCYTE # 0.7 TH/MM3 (0-0.9); NEUT % 72.3 % (16.0-70.0); PLATELET COUNT 195 TH/MM3 (150-450); RED BLOOD COUNT 2.59 MIL/MM3 (4.50-5.90); RED CELL DISTRIBUTION WIDTH 15.8 % (11.6-17.2); WHITE BLOOD COUNT 7.5 TH/MM3 (4.0-11.0)
[2017-07-26] MEDS: ISOSORBIDE MONONITRATE 60 MG CR TAB (IMDUR) PO SCH (06:17)
[2017-07-26] MEDS: FOSPHENYTOIN SODIUM 100 MG PE/2 ML VIAL IV SCH ×3 (06:17→17:47)
[2017-07-26] MEDS: LEVOTHYROXINE SODIUM 100 MCG TAB PO SCH (06:17)
[2017-07-26 06:38] LABS: ALBUMIN 2.3 GM/DL (3.4-5.0); ALKALINE PHOSPHATASE 217 U/L (45-117); ALT (GPT) 35 U/L (12-78); AST (GOT) 58 U/L (15-37); BICARBONATE 25.7 MEQ/L (21.0-32.0); BLOOD UREA NITROGEN 73 MG/DL (7-18); CALCIUM 8.7 MG/DL (8.5-10.1); CHLORIDE 99 MEQ/L (98-107); CREATININE 9.12 MG/DL (0.60-1.30); GLOMERULAR FILTRATION RATE 6 ML/MIN (>89); GLUCOSE,RANDOM 94 MG/DL (74-106); SODIUM (NA) 136 MEQ/L (136-145); TOTAL BILIRUBIN ADULT 1.3 MG/DL (0.2-1.0); TOTAL PROTEIN 6.4 GM/DL (6.4-8.2)
[2017-07-26] MEDS: CHLORHEXIDINE 0.12% (ORAL KIT) 15 ML CUP MT SCH ×2 (08:00→20:00)
[2017-07-26] MEDS: INSULIN ASPART SUPPLEMENTAL SCALE SQ SCH ×4 (08:00→21:00)
[2017-07-26] MEDS: SEVELAMER CARBONATE 800 MG TAB PO SCH ×3 (09:26→17:47)
[2017-07-26] MEDS: ASPIRIN 81 MG CHEW TAB CHEW SCH (09:26)
[2017-07-26] MEDS: CARVEDILOL 12.5 MG TAB PO SCH ×2 (09:26→21:37)
[2017-07-26] MEDS: RANOLAZINE 500 MG EXTENDED RELEASE TAB PO SCH ×2 (09:26→21:38)
[2017-07-26] MEDS: EZETIMIBE 10 MG TAB PO SCH (09:26)
[2017-07-26] MEDS: RESP: ALBUTEROL 2.5 MG/IPRATROPIUM 0.5 MG NEB (SCH) INH ×3 (09:26→21:15)
[2017-07-26] MEDS: DOCUSATE SODIUM 50 MG/SENNA 8.6 MG TAB PO SCH ×2 (09:27→21:37)
[2017-07-26] MEDS: FAMOTIDINE 20 MG/2 ML VIAL IV PUSH SCH (09:27)
[2017-07-26] MEDS: SODIUM CHLORIDE 0.9% FLUSH 10 ML FLUSH IV FLUSH SCH ×2 (09:27→21:38)
--- NOTE | 2017-07-26 09:59 | HHI.PR ---
Subjective Remarks He is more awake and alert today and oriented. Says he wants to go home and feels better. No seizures overnight. Says he doesn't have any recollection of events. Says he is not drinking much however he is not telling me exactly how much he is drinking daily. No nausea vomiting diarrhea or constipation. Feels weak. PT recommends rehabilitation. Objective Vitals Vital Signs Date Time Temp Pulse Resp B/P (MAP) Pulse Ox O2 Delivery O2 Flow Rate FiO2 07/26/17 09:26 98 07/26/17 07:00 Room Air 07/26/17 04:00 Room Air 07/26/17 04:00 98.0 74 16 133/66 (88) 98 07/26/17 03:43 107 07/26/17 00:00 98.2 73 16 132/63 (86) 98 07/26/17 00:00 Room Air 07/25/17 23:57 84 07/25/17 23:00 Room Air 07/25/17 20:00 97.4 71 18 122/57 (78) 97 07/25/17 19:58 84 07/25/17 19:30 97.0 76 18 146/64 (91) 95 07/25/17 16:23 98.0 75 17 163/77 (105) 100 07/25/17 16:00 72 07/25/17 14:07 96.3 77 18 106/59 (75) 100 07/25/17 10:00 85 I/O 07/25/17 07/25/17 07/25/17 07/26/17 07/26/17 07/26/17 07:00 15:00 23:00 07:00 15:00 23:00 Intake Total 200 ml 900 ml Output Total 0 ml Balance 200 ml 900 ml Intake Oral 200 ml Other 900 ml Output Urine Total 0 ml # Bowel Movements 2 2 Result Diagram: 07/26/17 0500 07/26/17 0500 Imaging Last Impressions Abdomen X-Ray 07/25/17 0000 Signed Impressions: Service Date/Time: Tuesday, July 25, 2017 12:53 - CONCLUSION: Attempted ERCP as described above. Tiago Butcher MD Chest X-Ray 07/24/17 0600 Signed Impressions: Service Date/Time: Monday, July 24, 2017 03:51 - CONCLUSION: 1. Status post extubation with stable subtle patchy right lower lung zone airspace disease. Vik Colmenares MD Cholangiopancreatography MRI 07/21/17 0000 Signed Impressions: Service Date/Time: Friday, July 21, 2017 12:23 - CONCLUSION: 1. Tiny gallstones. 2. Dilated common bile duct and common hepatic duct with a solitary 5 mm filling defect in common bile duct. 3. Right pleural effusion and ascites right upper quadrant . Klaus Schneider MD Lumbar Puncture Fluoroscopy 07/20/17 0000 Signed Impressions: Service Date/Time: June 14:34 - CONCLUSION: Uncomplicated fluoroscopically guided lumbar puncture. Klaus Haley Jr., MD Gall Bladder Ultrasound 07/20/17 0000 Signed Impressions: Service Date/Time: June 08:54 - CONCLUSION: Gallstone. Moderate extrahepatic biliary ductal dilatation End-stage right kidney Juan Sarkar MD Head CT 07/19/17 0000 Signed Impressions: Service Date/Time: Wednesday, July 19, 2017 17:39 - CONCLUSION: Normal examination. Juan Sarkar MD Objective Remarks GENERAL: Pleasant 67 yo male, more awake and alert, appears in NAD, A&Ox3 CARDIOVASCULAR: Regular rate and rhythm without murmurs, gallops, or rubs. RESPIRATORY: Breath sounds equal bilaterally. No accessory muscle use. GASTROINTESTINAL: Abdomen soft, non-tender, nondistended. MUSCULOSKELETAL: No cyanosis, or edema. SKIN: Warm and dry. NEURO: No focal neurological deficits. A/P Problem List: (1) Seizures ICD Code: R56.9 - Unspecified convulsions Assessment and Plan 67 year old male admitted secondary to seizure, intubated at time of admission due to respiratory failure. Acute seizure No recurrence as far Monitor for recurrence Follow results from LP, CSF pleocytosis HSV is negative Rocephin and acyclovir were discontinued No signs of active seizure on EEG fosphenytoin 100 mg TID As needed Ativan for any seizure Avoid Haldol secondary to seizure Acute psychosis Mood disorder Possible dementia Encephalopathy Psychiatry following will, today Continue supportive care Monitor for improvement Seventh rib fracture Supportive care Pain treatments as needed Acute hypoxemic respiratory failure Improved Patient extubated 07/22/17 Oxygen as needed Duo neb treatments as needed Moderate Cardiovascular disease Continue statin Continue Ranexa Continue aspirin Isordil resumed Coreg resumed History of hypertension Hypotension Is[place]il resumed Coreg resumed Follow blood pressures ESRD Nephrology following Follow renal function Dialysis on an as-needed basis Cholelithiasis Nonobstructing choledocholithiasis Status post ERCP GI following Hyperlipidemia Continue Sevelamer 800 mg TID Continue Zetia 10mg/d Hypothyroidism Continue levothyroxine 100 mg/day DVT Prophylaxis SCDs Discussed with the patient, nurse Psychiatry evaluation pending Physical therapy recommends placement. Case management consult discharge planning. Audelia Solis MD Jul 26, 2017 09:59
--- NOTE | 2017-07-26 11:21 | PD.PROCEDR ---
GI Procedure PROCEDURE PERFORMED ERCP INDICATION FOR PROCEDURE Dilated common bile duct, elevated liver function test, possible stone in the common bile duct PROCEDURE: The procedure, risks and benefits were discussed with Mr. Wyatt and informed consent was obtained. Anesthesia sedated him with Diprivan. He was placed in the left lateral decubitus position. ERCP: Patient was placed in a prone position. The Pentax videoscope was introduced through the oropharynx and advanced to the second portion of the duodenum where the ampula was identified. There was periampullary diverticulum, cannulation was performed, pancreatic duct was opacified with dye, which was normal, when trying to pass the wire to the common bile duct, the wire kept hitting the fold of the diverticulum without making the turn into the common bile duct so the procedure was terminated at that point ESTIMATED BLOOD LOSS: None SPECIMENS REMOVED: None COMPLICATIONS: None IMPRESSION: Periampullary direct Unable to thread the wire into the common bile duct PLAN: I'll discuss with the family and the patient desired to have PTC performed by radiology, if they are agreeable to that we will do it in the next day or 2 Monitor patient for liver function test Beth Barr MD Jul 26, 2017 11:21
--- NOTE | 2017-07-26 11:59 | HHI.GIFU ---
Subjective Remarks pt resting in bed, soft restraints. Wants to have BM but is stuck in bed. Says his pain is improving. ([place] De La Fuente) Objective Vitals I&O Vital Signs Date Time Temp Pulse Resp B/P (MAP) Pulse Ox O2 Delivery O2 Flow Rate FiO2 07/26/17 09:26 98 07/26/17 08:45 72 07/26/17 08:00 97.7 71 18 130/73 (92) 100 07/26/17 07:00 Room Air 07/26/17 04:00 Room Air 07/26/17 04:00 98.0 74 16 133/66 (88) 98 07/26/17 03:43 107 07/26/17 00:00 98.2 73 16 132/63 (86) 98 07/26/17 00:00 Room Air 07/25/17 23:57 84 07/25/17 23:00 Room Air 07/25/17 20:00 97.4 71 18 122/57 (78) 97 07/25/17 19:58 84 07/25/17 19:30 97.0 76 18 146/64 (91) 95 07/25/17 16:23 98.0 75 17 163/77 (105) 100 07/25/17 16:00 72 07/25/17 14:07 96.3 77 18 106/59 (75) 100 I/O 07/25/17 07/25/17 07/25/17 07/26/17 07/26/17 07/26/17 07:00 15:00 23:00 07:00 15:00 23:00 Intake Total 200 ml 900 ml Output Total 0 ml Balance 200 ml 900 ml Intake Oral 200 ml Other 900 ml Output Urine Total 0 ml # Bowel Movements 2 2 Laboratory Laboratory Tests Test 07/26/17 05:00 White Blood Count 7.5 Red Blood Count 2.59 Hemoglobin 8.1 Hematocrit 23.5 Mean Corpuscular Volume 90.5 Mean Corpuscular Hemoglobin 31.1 Mean Corpuscular Hemoglobin Concent 34.4 Red Cell Distribution Width 15.8 Platelet Count 195 Mean Platelet Volume 9.7 Neutrophils (%) (Auto) 72.3 Lymphocytes (%) (Auto) 12.9 Monocytes (%) (Auto) 9.6 Eosinophils (%) (Auto) 4.9 Basophils (%) (Auto) 0.3 Neutrophils # (Auto) 5.5 Lymphocytes # (Auto) 1.0 Monocytes # (Auto) 0.7 Eosinophils # (Auto) 0.4 Basophils # (Auto) 0.0 CBC Comment DIFF FINAL Differential Comment Blood Urea Nitrogen 73 Creatinine 9.12 Random Glucose 94 Total Protein 6.4 Albumin 2.3 Calcium Level 8.7 Alkaline Phosphatase 217 Aspartate Amino Transf (AST/SGOT) 58 Alanine Aminotransferase (ALT/SGPT) 35 Total Bilirubin 1.3 Sodium Level 136 Potassium Level 4.4 Chloride Level 99 Carbon Dioxide Level 25.7 Anion Gap 11 Estimat Glomerular Filtration Rate 6 Date/Time Source Procedure Growth Status 07/21/17 01:00 Blood Peripheral Aerobic Blood Culture - Final NO GROWTH IN 5 DAYS Complete 07/21/17 01:00 Blood Peripheral Anaerobic Blood Culture - Final NO GROWTH IN 5 DAYS Complete 07/20/17 14:58 Cerebral Spinal Fluid Lumbar Puncture Fungal Smear - Final NO FUNGAL ELEMENTS SEEN. Resulted 07/20/17 14:58 Cerebral Spinal Fluid Lumbar Puncture Fungal Culture Pending Resulted Imaging Last Impressions Abdomen X-Ray 07/25/17 0000 Signed Impressions: Service Date/Time: Tuesday, July 25, 2017 12:53 - CONCLUSION: Attempted ERCP as described above. Tiago Butcher MD Chest X-Ray 07/24/17 0600 Signed Impressions: Service Date/Time: Monday, July 24, 2017 03:51 - CONCLUSION: 1. Status post extubation with stable subtle patchy right lower lung zone airspace disease. Vik Colmenares MD Cholangiopancreatography MRI 07/21/17 0000 Signed Impressions: Service Date/Time: Friday, July 21, 2017 12:23 - CONCLUSION: 1. Tiny gallstones. 2. Dilated common bile duct and common hepatic duct with a solitary 5 mm filling defect in common bile duct. 3. Right pleural effusion and ascites right upper quadrant . Klaus Schneider MD Lumbar Puncture Fluoroscopy 07/20/17 0000 Signed Impressions: Service Date/Time: June 14:34 - CONCLUSION: Uncomplicated fluoroscopically guided lumbar puncture. Klaus Haley Jr., MD Gall Bladder Ultrasound 07/20/17 0000 Signed Impressions: Service Date/Time: June 08:54 - CONCLUSION: Gallstone. Moderate extrahepatic biliary ductal dilatation End-stage right kidney Juan Sarkar MD Head CT 07/19/17 0000 Signed Impressions: Service Date/Time: Wednesday, July 19, 2017 17:39 - CONCLUSION: Normal examination. Juan Sarkar MD Physical Exam HEENT: Normocephalic; atraumatic, CHEST: CTA CARDIAC: irr HR + murmur ABDOMEN: Soft, nondistended, bowel sounds active , mild epigastric TTP EXTREMITIES: No clubbing, cyanosis, or edema. SKIN: Normal; no rash; no jaundice. IV THERAPY NURSE:somewhat confused ([place] De La Fuente) Assessment and Plan Plan Assessment: An history - Biliary duct dilation with elevation of Alk phos and T bili US gallbladder (07/20) gall stone, moderate extrabiliary ductal dilatation. End-stage right kidney - ESRD- hemodialysis M,W,F do tomorrow a.m. Labs ,total bilirubin 1. 3 MRCP showed common bile duct stone Hemoglobin 8. Which is a 1 g decrease in 24 hours 07/26/17 s/p ERCP unsuccessful. minimal change LFTs. pt denies abd pain. PLAN - PTC by IR if family agreeable - monitor LFTs - PARAG - further recs to follow pt seen by myself and Dr Barr and this note is on his behalf ([place] De La Fuente) Plan Patient was seen and examined, agree with above-noted, I had a discussion with the patient and I talked to her about the different alternatives and she would like to proceed with PTC to try to remove the stones, a combined procedure with PTC and ERCP may be needed to access no stones if radiology cannot flush them out (Beth Barr MD) [place] De La Fuente Jul 26, 2017 11:59 Beth Barr MD Jul 26, 2017 16:08
--- NOTE | 2017-07-26 12:13 | HHI.DS ---
Discharge Summary Admission Date Jul 19, 2017 at 15:48 Discharge Date: Jul 29, 2017 Admitting Diagnosis Seizure disorder, unresponsive (1) Seizures ICD Code: R56.9 - Unspecified convulsions Diagnosis: Principal (2) ESRD (end stage renal disease) on dialysis ICD Code: N18.6 - End stage renal disease; Z99.2 - Dependence on renal dialysis (3) DEMENTIA IN OTH DISEASES CLASSD ELSWHR W BEHAVIORAL DISTURB ICD Code: F02.81 - DEMENTIA IN OTH DISEASES CLASSD ELSWHR W BEHAVIORAL DISTURB (4) Hyperkalemia ICD Code: E87.5 - Hyperkalemia (5) Brief psychotic disorder ICD Code: F23 - Brief psychotic disorder Status: Acute (6) Hypertension ICD Code: I10 - Essential (primary) hypertension (7) Alzheimer's disease with late onset ICD Code: G30.1 - Alzheimer's disease with late onset; F02.80 - Dementia in other diseases classified elsewhere without behavioral disturbance Procedures intubation/extubation SHENA drain s/p cholangioplasty with stone extraction under anesthesia 07/28/17 by IR Brief History - From Admission This is a 67-year-old male, that was admitted to inpatient psychiatry unit. Per report, the patient has a seizure disorder, and previous attempts have been made to obtain EEG. Dr. Salas, neurologist. The patient had been having falls for the past several days, and subsequently had a laceration in the posterior scalp. Today the patient was noted to be in the day room having a tonic-clonic seizure, and subsequent unresponsiveness. A Halicat was initiated , and the patient was transferred to [facility] [place], [place]. Upon my evaluation the patient was nonresponsive, O2 saturation was 97%, the patient was unable to protect airway. The patient was emergently intubated, and placed on a ventilator. A stat chest x-ray was performed which showed a posterolateral 7th rib fracture. A stat CT of the brain was obtained, results negative. Stat EEG was obtained prior to initiation of sedation, the patient was then loaded with fosphenytoin. Critical care is requested for management. CBC/BMP: 07/26/17 0500 07/26/17 0500 Significant Findings Laboratory Tests Test 07/23/17 13:40 07/24/17 04:25 07/25/17 04:30 07/26/17 05:00 Blood Urea Nitrogen 88 MG/DL (7-18) 100 MG/DL (7-18) 73 MG/DL (7-18) Creatinine 9.79 MG/DL (0.60-1.30) 10.88 MG/DL (0.60-1.30) 9.12 MG/DL (0.60-1.30) Random Glucose 122 MG/DL (74-106) Albumin 2.8 GM/DL (3.4-5.0) 2.6 GM/DL (3.4-5.0) 2.3 GM/DL (3.4-5.0) Calcium Level 8.4 MG/DL (8.5-10.1) Alkaline Phosphatase 218 U/L (45-117) 217 U/L (45-117) 217 U/L (45-117) Aspartate Amino Transf (AST/SGOT) 58 U/L (15-37) 47 U/L (15-37) 58 U/L (15-37) Total Bilirubin 1.3 MG/DL (0.2-1.0) 1.4 MG/DL (0.2-1.0) 1.3 MG/DL (0.2-1.0) Chloride Level 97 MEQ/L (98-107) 97 MEQ/L (98-107) Estimat Glomerular Filtration Rate 5 ML/MIN (>89) 5 ML/MIN (>89) 6 ML/MIN (>89) Red Blood Count 2.68 MIL/MM3 (4.50-5.90) 2.59 MIL/MM3 (4.50-5.90) Hemoglobin 8.3 GM/DL (13.0-17.0) 8.1 GM/DL (13.0-17.0) Hematocrit 24.3 % (39.0-51.0) 23.5 % (39.0-51.0) Neutrophils (%) (Auto) 78.1 % (16.0-70.0) 72.3 % (16.0-70.0) Monocytes (%) (Auto) 8.9 % (0.0-8.0) 9.6 % (0.0-8.0) Lymphocytes # (Auto) 0.8 TH/MM3 (1.0-4.8) Eosinophils (%) (Auto) 4.9 % (0.0-4.0) Imaging Last Impressions Abdomen X-Ray 07/25/17 0000 Signed Impressions: Service Date/Time: Tuesday, July 25, 2017 12:53 - CONCLUSION: Attempted ERCP as described above. Tiago Butcher MD Chest X-Ray 07/24/17 0600 Signed Impressions: Service Date/Time: Monday, July 24, 2017 03:51 - CONCLUSION: 1. Status post extubation with stable subtle patchy right lower lung zone airspace disease. Vik Colmenares MD Cholangiopancreatography MRI 07/21/17 0000 Signed Impressions: Service Date/Time: Friday, July 21, 2017 12:23 - CONCLUSION: 1. Tiny gallstones. 2. Dilated common bile duct and common hepatic duct with a solitary 5 mm filling defect in common bile duct. 3. Right pleural effusion and ascites right upper quadrant . Klaus Schneider MD Lumbar Puncture Fluoroscopy 07/20/17 0000 Signed Impressions: Service Date/Time: June 14:34 - CONCLUSION: Uncomplicated fluoroscopically guided lumbar puncture. Klaus Haley Jr., MD Gall Bladder Ultrasound 07/20/17 0000 Signed Impressions: Service Date/Time: June 08:54 - CONCLUSION: Gallstone. Moderate extrahepatic biliary ductal dilatation End-stage right kidney Juan Sarkar MD Head CT 07/19/17 0000 Signed Impressions: Service Date/Time: Wednesday, July 19, 2017 17:39 - CONCLUSION: Normal examination. Juan Sarkar MD PE at Discharge GENERAL: Pleasant 67 yo male, more awake and alert, appears in NAD, A&Ox3 CARDIOVASCULAR: Regular rate and rhythm without murmurs, gallops, or rubs. RESPIRATORY: Breath sounds equal bilaterally. No accessory muscle use. GASTROINTESTINAL: Abdomen soft, non-tender, nondistended. MUSCULOSKELETAL: No cyanosis, or edema. SKIN: Warm and dry. NEURO: No focal neurological deficits. Hospital Course 67 year old male admitted secondary to seizure, intubated at time of admission due to respiratory failure. 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 His family also relate brief jerking activity of limbs suggestive of myoclonus which is also characteristic. Discussed with neurology Dr. Salas appreciate recommendations Consult palliative care, expectant fast deterioration Psychiatry following will, today Continue supportive care Monitor for improvement Seventh rib fracture Supportive care Pain treatments as needed Acute hypoxemic respiratory failure Improved Patient extubated 07/22/17 Oxygen as needed Duo neb treatments as needed Moderate Cardiovascular disease Continue statin Continue Ranexa Continue aspirin Isordil resumed Coreg resumed History of hypertension Hypotension Isordil resumed Coreg resumed Follow blood pressures ESRD Nephrology following Follow renal function Dialysis on an as-needed basis Cholelithiasis Nonobstructing choledocholithiasis Status post ERCP GI following IR consulted s/p cholangioplasty with stone extraction under anesthesia 07/28/17 Hyperlipidemia Continue Sevelamer 800 mg TID Continue Zetia 10mg/d Hypothyroidism Continue levothyroxine 100 mg/day DVT Prophylaxis SCDs Discussed with the patient, nurse Psychiatry evaluation pending Physical therapy recommends placement. Case management consult discharge planning. Discharge plan. Consult palliative care for goals of care. Expect fast deterioration, patient with CJD Family /patient doesnt want snf and [facility] . Needs a walker also they work on having hopice later at home Patient with SHENA drain , discharge home with home health to follow with IR, for SHENA drain Pt Condition on Discharge: Stable Discharge Disposition: Disch w/ Home Health Serv Discharge Time: > 30 minutes Discharge Instructions DIET: Follow Instructions for: Renal Failure Diet, Dialysis Diet Activities you can perform: Regular-No Restrictions Follow up Referrals: Nephrology - 1 Week Neurology - 1 Week PCP Follow-up - 2-3 Days New Medications: Hydrocodone-Acetaminophen (Redkey) 5 Mg-325 Mg Tab 1 TAB PO Q6H PRN for PAIN, #30 TAB 0 Refills Walker Rolling/GetGo (Walker Rolling/GetGo) 1 Mis Mis EA .XX DIRECTED, #1 Famotidine (Famotidine) 20 Mg Tab 10 MG PO BID for dyspepsia , #60 TAB Phenytoin Extended (Dilantin) 100 Mg Cap 200 MG PO BID for Seizure Control, #60 CAP Continued Medications: Alprazolam (Xanax) 0.25 Mg Tab 0.25-0.5 MG PO Q12HR PRN for ANXIETY, #10 TAB 0 Refills (This prescription has been renewed) Aspirin DR (Aspirin Adult Low Strength) 81 Mg Tabdr 81 MG PO DAILY, TAB Carvedilol (Coreg) 12.5 Mg Tab 12.5 MG PO BID, #60 TAB 0 Refills Cinacalcet (Sensipar) 30 Mg Tab 60 MG PO HS, #30 TAB 0 Refills Ezetimibe (Zetia) 10 Mg Tab 10 MG PO DAILY, #30 TAB 0 Refills Isosorbide Mononitrate ER (Isosorbide Mononitrate ER) 60 Mg Tab 60 MG PO DAILY for Prevent Chest Pain, #30 TAB 0 Refills Levothyroxine (Levothyroxine) 100 Mcg Tab 100 MCG PO DAILY for Thyroid, #30 TAB 0 Refills Losartan (Losartan) 25 Mg Tab 25 MG PO DAILY for Blood Pressure Management, #30 TAB 0 Refills Meclizine (Meclizine) 25 Mg Tab 25 MG PO TID PRN for DIZZINESS, TAB 0 Refills Omeprazole (Omeprazole) 20 Mg Tab 20 MG PO DAILY, #30 TAB 0 Refills Ranolazine ER 12 HR (Ranexa ER 12 HR) 1,000 Mg Tab 1000 MG PO BID for Chest Pain, #60 TAB 0 Refills Rosuvastatin (Crestor) 40 Mg Tab 40 MG PO HS for Cholesterol Management, #30 TAB 0 Refills Sertraline (Zoloft) 50 Mg Tab 25 MG PO HS, #30 TAB 0 Refills Sevelamer Carbonate (Renvela) 800 Mg Tab 2400 MG PO TIDAC for Control phosphorous levels, #90 TAB 0 Refills Audelia Solis MD Jul 26, 2017 12:13
--- NOTE | 2017-07-26 13:38 | HHI.NPPN ---
Subjective History of Present Illness 67 year old with ESRD, on Hemodialysis, admitted with seizures, he was intubated Additional Remarks more alert Objective Data Data Vital Signs Date Time Temp Pulse Resp B/P (MAP) Pulse Ox O2 Delivery O2 Flow Rate FiO2 07/26/17 09:26 98 07/26/17 08:45 72 07/26/17 08:00 97.7 71 18 130/73 (92) 100 07/26/17 07:00 Room Air 07/26/17 04:00 Room Air 07/26/17 04:00 98.0 74 16 133/66 (88) 98 07/26/17 03:43 107 07/26/17 00:00 98.2 73 16 132/63 (86) 98 07/26/17 00:00 Room Air 07/25/17 23:57 84 07/25/17 23:00 Room Air 07/25/17 20:00 97.4 71 18 122/57 (78) 97 07/25/17 19:58 84 07/25/17 19:30 97.0 76 18 146/64 (91) 95 07/25/17 16:23 98.0 75 17 163/77 (105) 100 07/25/17 16:00 72 07/25/17 14:07 96.3 77 18 106/59 (75) 100 -: 07/26/17 0500 07/26/17 0500 Physical Exam General Appearance: Well Developed Pulmonary Resp Exam: Clear Bilaterally Cardiology CV Exam: Regular Gastrointestinal/Abdomen GI Exam: Soft, Non-Tender, Bowel Sounds Present Extremeties Extremities Exam: No Edema Assessment/Plan Problem List: (1) ESRD (end stage renal disease) on dialysis ICD Codes: N18.6 - End stage renal disease; Z99.2 - Dependence on renal dialysis Plan: Volume status and electrolytes stable. HD done 2 L off YESTERDAY Patient had MRCP had filling defect 5 mm bile duct and gallstones ERCP could not be completed due to diverticulum Status post LP encephalitis ruled out doing better seen during HD 3 L UF (2) Seizures ICD Codes: R56.9 - Unspecified convulsions Plan: Neurology following on Joshua Butler MD Jul 26, 2017 13:38
[2017-07-26 19:53] LABS: CSF CRYPTOCOCCUS ANTIGEN NOT DETECTED (NEGATIVE)
[2017-07-26] MEDS: FAMOTIDINE 20 MG TAB PO SCH (21:37)
[2017-07-26] MEDS: ATORVASTATIN 80 MG TAB PO SCH (21:38)
[2017-07-27] VITALS (13 sets, daily range): BP systolic 91–124; BP diastolic 40–68; PULSE 62–81; RESP 18–20; TEMP 97.1–98.8; O2SAT 95–100
[2017-07-27] MEDS ORDERED: BENZOCAINE 6 MG/MENTHOL 10 MG LOZENGE BUCCAL PRN (00:30)
[2017-07-27] MEDS: FOSPHENYTOIN SODIUM 100 MG PE/2 ML VIAL IV SCH ×2 (00:31→05:47)
[2017-07-27] MEDS: SODIUM CHLORIDE 0.9% FLUSH 10 ML FLUSH IV FLUSH PRN ×2 (00:33→05:48)
[2017-07-27] MEDS: CHLORHEXIDINE GLUCONATE 2 % 1 PACK (2 CLOTHS) TOP SCH (04:00)
[2017-07-27] MEDS: RESP: ALBUTEROL 2.5 MG/IPRATROPIUM 0.5 MG NEB (SCH) INH ×2 (04:10→08:08)
[2017-07-27] MEDS: LEVOTHYROXINE SODIUM 100 MCG TAB PO SCH (05:45)
[2017-07-27] MEDS: ISOSORBIDE MONONITRATE 60 MG CR TAB (IMDUR) PO SCH (05:45)
[2017-07-27] MEDS: INSULIN ASPART SUPPLEMENTAL SCALE SQ SCH ×4 (08:00→20:12)
[2017-07-27] MEDS: CHLORHEXIDINE 0.12% (ORAL KIT) 15 ML CUP MT SCH ×2 (08:00→20:00)
[2017-07-27] MEDS: SEVELAMER CARBONATE 800 MG TAB PO SCH ×3 (08:00→16:49)
--- NOTE | 2017-07-27 08:45 | HHI.PR ---
Subjective Remarks The patient is in the chair. He appears to not acute distress at this time. Pleasantly confused. No fever or chills no nausea or vomiting no diarrhea or constipation. Objective Vitals Vital Signs Date Time Temp Pulse Resp B/P (MAP) Pulse Ox O2 Delivery O2 Flow Rate FiO2 07/27/17 08:09 95 21 07/27/17 04:12 100 07/27/17 04:00 98.1 72 20 124/60 (81) 96 07/27/17 04:00 69 07/27/17 00:00 98.8 80 20 115/61 (79) 99 07/27/17 00:00 81 07/26/17 21:18 100 07/26/17 20:00 80 07/26/17 20:00 Room Air 07/26/17 20:00 97.9 82 18 114/58 (76) 99 07/26/17 19:30 97.0 76 17 146/64 (91) 95 07/26/17 09:26 98 07/26/17 08:45 72 I/O 07/26/17 07/26/17 07/26/17 07/27/17 07/27/17 07/27/17 07:00 15:00 23:00 07:00 15:00 23:00 Intake Total 0 ml Output Total 3000 ml 0 ml Balance -3000 ml 0 ml Intake Oral 0 ml Output Urine Total 0 ml Hemodialysis 3000 ml # Voids 0 # Bowel Movements 2 0 Result Diagram: 07/26/17 0500 07/26/17 0500 Imaging Last Impressions Abdomen X-Ray 07/25/17 0000 Signed Impressions: Service Date/Time: Tuesday, July 25, 2017 12:53 - CONCLUSION: Attempted ERCP as described above. Tiago Butcher MD Chest X-Ray 07/24/17 0600 Signed Impressions: Service Date/Time: Monday, July 24, 2017 03:51 - CONCLUSION: 1. Status post extubation with stable subtle patchy right lower lung zone airspace disease. Vik Colmenares MD Cholangiopancreatography MRI 07/21/17 0000 Signed Impressions: Service Date/Time: Friday, July 21, 2017 12:23 - CONCLUSION: 1. Tiny gallstones. 2. Dilated common bile duct and common hepatic duct with a solitary 5 mm filling defect in common bile duct. 3. Right pleural effusion and ascites right upper quadrant . Klaus Schneider MD Lumbar Puncture Fluoroscopy 07/20/17 0000 Signed Impressions: Service Date/Time: June 14:34 - CONCLUSION: Uncomplicated fluoroscopically guided lumbar puncture. Klaus Haley Jr., MD Gall Bladder Ultrasound 07/20/17 0000 Signed Impressions: Service Date/Time: June 08:54 - CONCLUSION: Gallstone. Moderate extrahepatic biliary ductal dilatation End-stage right kidney Juan Sarkar MD Head CT 07/19/17 0000 Signed Impressions: Service Date/Time: Wednesday, July 19, 2017 17:39 - CONCLUSION: Normal examination. Juan Sarkar MD Objective Remarks GENERAL: Pleasant 67 yo male, more awake and alert, appears in NAD, A&Ox3 CARDIOVASCULAR: Regular rate and rhythm without murmurs, gallops, or rubs. RESPIRATORY: Breath sounds equal bilaterally. No accessory muscle use. GASTROINTESTINAL: Abdomen soft, non-tender, nondistended. MUSCULOSKELETAL: No cyanosis, or edema. SKIN: Warm and dry. NEURO: No focal neurological deficits. Procedures intubation/extubation A/P Problem List: (1) Seizures ICD Code: R56.9 - Unspecified convulsions (2) ESRD (end stage renal disease) on dialysis ICD Code: N18.6 - End stage renal disease; Z99.2 - Dependence on renal dialysis (3) DEMENTIA IN OTH DISEASES CLASSD ELSWHR W BEHAVIORAL DISTURB ICD Code: F02.81 - DEMENTIA IN OTH DISEASES CLASSD ELSWHR W BEHAVIORAL DISTURB (4) Hyperkalemia ICD Code: E87.5 - Hyperkalemia (5) Brief psychotic disorder ICD Code: F23 - Brief psychotic disorder Status: Acute (6) Hypertension ICD Code: I10 - Essential (primary) hypertension (7) Alzheimer's disease with late onset ICD Code: G30.1 - Alzheimer's disease with late onset; F02.80 - Dementia in other diseases classified elsewhere without behavioral disturbance Assessment and Plan 67 year old male admitted secondary to seizure, intubated at time of admission due to respiratory failure. 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 His family also relate brief jerking activity of limbs suggestive of myoclonus which is also characteristic. Discussed with neurology Dr. Salas appreciate recommendations Consult palliative care, expectant fast deterioration Psychiatry following will, today Continue supportive care Monitor for improvement Seventh rib fracture Supportive care Pain treatments as needed Acute hypoxemic respiratory failure Improved Patient extubated 07/22/17 Oxygen as needed Duo neb treatments as needed Moderate Cardiovascular disease Continue statin Continue Ranexa Continue aspirin Isordil resumed Coreg resumed History of hypertension Hypotension Isordil resumed Coreg resumed Follow blood pressures ESRD Nephrology following Follow renal function Dialysis on an as-needed basis Cholelithiasis Nonobstructing choledocholithiasis Status post ERCP GI following Hyperlipidemia Continue Sevelamer 800 mg TID Continue Zetia 10mg/d Hypothyroidism Continue levothyroxine 100 mg/day DVT Prophylaxis SCDs Discussed with the patient, nurse Psychiatry evaluation pending Physical therapy recommends placement. Case management consult discharge planning. Discharge plan. Consult palliative care for goals of care. Expect facet degeneration patient with CJD Audelia Solis MD Jul 27, 2017 08:44
--- NOTE | 2017-07-27 09:15 | HHI.PYPN ---
Subjective Remarks I have seen this patient today for psychiatric evaluation. Chart was reviewed. I have discussed the case with Dr. Solis. On psychiatric evaluation the patient is calm, cooperative, in a good spirits. He reports good mood, denies depressive symptoms, denies anhedonia, denies hopelessness, denies helplessness , he denies suicidal and homicidal ideation, he denies visual and auditory hallucinations. The patient is logical, coherent and relevant. No loosening of associations, paranoia, delusions, agitation or aggressive behavior present. The patient is oriented 3, a fluctuation of consciousness, no attention deficit person. Patient reports that he doesn't have any previous psychiatric history other than his recent psychotic episode, he denies the use of illegal drugs and alcohol. She expresses his motivation to continue medical treatment and outpatient follow-ups. Review of Systems Constitutional: DENIES: Diaphoretic episodes, Fatigue, Fever, Weight gain, Weight loss, Chills, Dizziness, Change in appetite, Night Sweats Eyes: DENIES: Blurred vision, Diplopia, Eye inflammation, Eye pain, Vision loss , Photosensitivity, Double Vision Ears, nose, mouth, throat: DENIES: Tinnitus, Hearing loss, Vertigo, Nasal discharge, Oral lesions, Throat pain, Hoarseness, Ear Pain, Running Nose, Epistaxis, Sinus Pain, Toothache, Odynophagia Respiratory: DENIES: Apneas, Cough, Snoring, Wheezing, Hemoptysis, Sputum production, Shortness of breath Cardiovascular: DENIES: Chest pain, Palpitations, Syncope, Dyspnea on Exertion , PND, Lower Extremity Edema, Orthopnea, Claudication Gastrointestinal: DENIES: Abdominal pain, Black stools, Bloody stools, Constipation, Diarrhea, Nausea, Vomiting, Difficulty Swallowing, Anorexia Genitourinary: DENIES: Sexual dysfunction, Urinary frequency, Urinary incontinence, Urgency, Hematuria, Dysuria, Nocturia, Penile Discharge, Testicular Pain, Testicular Swelling Musculoskeletal: DENIES: Joint pain, Muscle aches, Stiffness, Joint Swelling, Back pain, Neck pain Integumentary: DENIES: Abnormal pigmentation, Nail changes, Pruritus, Rash Hematologic/lymphatic: DENIES: Bruising, Lymphadenopathy Immunologic/allergic: DENIES: Eczema, Urticaria Neurologic: DENIES: Abnormal gait, Headache, Localized weakness, Paresthesias, Seizures, Speech Problems, Tremor, Poor Balance Psychiatric: DENIES: Anxiety, Confusion, Mood changes, Depression, Hallucinations, Agitation, Suicidal Ideation, Homicidal Ideation, Delusions Mental Status Examination Appearance: Appropriate Consciousness: Alert Orientation: x4 Motor Activity: Normal gait Speech: Unremarkable Language: Adequate Fund of Knowledge: Adequate Attention and Concentration: Adequate Memory: Unremarkable Mood: Appropriate Affect: Appropriate Thought Process & Associations: Intact Thought Content: Appropriate Hallucination Type: None Delusion Type: None Suicidal Ideation: No Suicidal Plan: No Suicidal Intention: No Homicidal Ideation: No Homicidal Plan: No Homicidal Intention: No Insight: Adequate Judgment: Adequate Results Labs Date/Time Source Procedure Growth Status 07/21/17 01:00 Blood Peripheral Aerobic Blood Culture - Final NO GROWTH IN 5 DAYS Complete 07/21/17 01:00 Blood Peripheral Anaerobic Blood Culture - Final NO GROWTH IN 5 DAYS Complete 07/20/17 14:58 Cerebral Spinal Fluid Lumbar Puncture Fungal Smear - Final NO FUNGAL ELEMENTS SEEN. Resulted 07/20/17 14:58 Cerebral Spinal Fluid Lumbar Puncture Fungal Culture Pending Resulted Vitals/IOs Vital Signs Date Time Temp Pulse Resp B/P (MAP) Pulse Ox O2 Delivery O2 Flow Rate FiO2 07/27/17 08:09 95 21 07/27/17 04:00 98.1 72 20 124/60 (81) 07/26/17 20:00 Room Air Intake and Output 07/27/17 07/27/17 07/28/17 08:00 16:00 00:00 Intake Total 0 ml Output Total 0 ml Balance 0 ml Assessment & Plan Problem List: (1) DEMENTIA IN OTH DISEASES CLASSD ELSWHR W BEHAVIORAL DISTURB ICD Codes: F02.81 - DEMENTIA IN OTH DISEASES CLASSD ELSWHR W BEHAVIORAL DISTURB Assessment & Plan: At this moment the patient does not present any acute, concerning for significant neuropsychiatric symptoms worse immediate psychiatric intervention/attention. He does not need to be admitted in psychiatry. His recent psychotic behavior most probably was a result of medical illness decompensation. He is not an acute danger to self and others. The patient is not psychiatrically cleared to continue medical care. Assessment & Plan Estimated LOS: days Justification for Cont. Inpt. No psychiatric admission indicated. Ravin Cornad MD Jul 27, 2017 09:15
--- NOTE | 2017-07-27 09:21 | HHI.PR ---
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 His family also relate brief jerking activity of limbs suggestive of myoclonus which is also characteristic. I discussed in detail with his daughter today including unfortunate poor prognosis with likely progression. I described brain biopsy could be done to confirm dx, but I do not recommend due to risk of the procedure and it would not alter care. Plan change iv cerebyx to po dilantin and check level consider hospice consult. Diagnosis/Plan: Subjective Subjective Comments No acute events reported No sz Active Medications Current Medications Medications (Trade) Dose Ordered Sig/Isis Route Start Time Stop Time Status Last Admin (Ativan Inj) 1 mg Q6H PRN IV 07/19/17 16:15 07/20/17 05:24 (NS Flush) 2 ml UNSCH PRN IV FLUSH 07/19/17 16:30 07/27/17 05:48 (NS Flush) 2 ml BID IV FLUSH 07/19/17 21:00 07/26/17 21:38 (Tylenol) 650 mg Q6H PRN PO 07/19/17 16:30 07/20/17 22:38 (Ativan Inj) 2 mg Q4H PRN IV PUSH 07/19/17 16:30 07/24/17 19:59 (Duoneb Neb) 1 ampule Q2HR NEB PRN INH 07/19/17 16:30 Miscellaneous Information 1 Q361D XX 07/19/17 16:30 (Chlorhexidine 2% Cloth) Taper DAILY@04 TOP 07/20/17 04:00 07/16/18 03:59 07/25/17 03:13 (Chlorhexidine 2% Cloth) 3 pack UNSCH PRN TOP 07/19/17 16:30 (Sommer-Colace) 1 tab BID PO 07/19/17 21:00 07/26/17 21:37 (Milk Of Magnesia Liq) 30 ml Q12H PRN PO 07/19/17 16:30 (Senokot) 17.2 mg Q12H PRN PO 07/19/17 16:30 (Dulcolax Supp) 10 mg DAILY PRN RECTAL 07/19/17 16:30 (Lactulose Liq) 30 ml DAILY PRN PO 07/19/17 16:30 (Peridex 0.12% Liq) 15 ml BID@08,20 MT 07/19/17 20:00 07/22/17 08:22 (Synthroid) 100 mcg DAILY@0600 PO 07/20/17 06:00 07/27/17 05:45 (Coreg) 12.5 mg Q12HR PO 07/19/17 21:00 Future hold 07/26/17 21:37 (Renvela) 800 mg TIDAC PO 07/20/17 08:00 07/26/17 17:47 (Aspirin Chew) 81 mg DAILY CHEW 07/20/17 09:00 07/26/17 09:26 (Zetia) 10 mg DAILY PO 07/20/17 09:00 07/26/17 09:26 (Lipitor) 80 mg HS PO 07/19/17 21:00 07/26/17 21:38 (Ranexa) 1,000 mg Q12HR PO 07/19/17 21:00 07/26/17 21:38 Sodium Chloride 1,000 ml @ 0 mls/hr TITRATE PRN OTHER 07/19/17 20:30 (Heparin Inj) 8,000 units UNSCH PRN IV FLUSH 07/19/17 20:30 Sodium Chloride 1,000 ml @ 200 mls/hr Q5H PRN OTHER 07/19/17 20:30 Sodium Chloride 200 ml @ 0 mls/hr UNSCH PRN IV 07/19/17 20:30 (Mannitol Inj) 12.5 gm UNSCH PRN IV PUSH 07/19/17 20:30 Albumin Human 100 ml @ 60 mls/hr UNSCH PRN IV 07/19/17 20:30 (NS Flush) 5 ml UNSCH PRN IV FLUSH 07/19/17 20:30 (Heparin Inj) Dwell Heparin to f... UNSCH PRN OTHER 07/19/17 20:30 (Gentamicin Inj) 10 mg UNSCH PRN OTHER 07/19/17 20:30 (D50w (Vial) Inj) 50 ml UNSCH PRN IV PUSH 07/19/17 20:30 07/25/17 17:12 (Glucagon Inj) 1 mg UNSCH PRN OTHER 07/19/17 20:30 (NovoLOG SUPPLEMENTAL SCALE) 1 ACHS SLIDING SCALE SQ 07/19/17 21:00 (Gelfoam 12 Mm/7 Mm Top) 1 foam UNSCH PRN TOPICAL 07/19/17 20:30 07/24/17 13:28 (Zofran Inj) 4 mg UNSCH PRN IV PUSH 07/19/17 20:30 (Tylenol) 650 mg UNSCH X1 PRN PO 07/19/17 20:30 08/18/17 20:29 (Benadryl) 25 mg UNSCH PRN PO 07/19/17 20:30 (Nitrostat Sl) 0.4 mg UNSCH PRN SL 07/19/17 20:30 (Catapres) 0.1 mg UNSCH PRN PO 07/19/17 20:30 (Brethine Inj) 1 mg UNSCH PRN SQ 07/20/17 09:45 (Cerebyx Inj) 100 mgpe Q6HR IV 07/21/17 00:00 07/27/17 05:47 (Duoneb Neb) 1 ampule Q6HR NEB INH 07/23/17 16:00 07/27/17 08:08 (Ativan Inj) 1 mg Q4H PRN IV 07/23/17 10:45 07/25/17 23:12 (Imdur) 60 mg DAILY@0700 PO 07/26/17 07:00 07/27/17 05:45 (Pepcid) 10 mg BID PO 07/26/17 21:00 07/26/17 21:37 (Chloraseptic Tobi) 1 lozenge UNSCH PRN BUCCAL 07/27/17 00:30 Allergies Allergies Coded Allergies No Known Allergies (Unverified07/15/17) Exam I&O / VS Vital Signs Date Time Temp Pulse Resp B/P (MAP) Pulse Ox O2 Delivery O2 Flow Rate FiO2 07/27/17 08:09 95 21 07/27/17 04:12 100 07/27/17 04:00 98.1 72 20 124/60 (81) 96 07/27/17 04:00 69 07/27/17 00:00 98.8 80 20 115/61 (79) 99 07/27/17 00:00 81 07/26/17 21:18 100 07/26/17 20:00 80 07/26/17 20:00 Room Air 07/26/17 20:00 97.9 82 18 114/58 (76) 99 07/26/17 19:30 97.0 76 17 146/64 (91) 95 07/26/17 09:26 98 Exam Comments alert, follow commands, poor memory, disoriented PERRL, EOM intact to dolls MOTOR--5/5 BUE and BLE Objective Micro and Labs Date/Time Source Procedure Growth Status 07/21/17 01:00 Blood Peripheral Aerobic Blood Culture - Final NO GROWTH IN 5 DAYS Complete 07/21/17 01:00 Blood Peripheral Anaerobic Blood Culture - Final NO GROWTH IN 5 DAYS Complete 07/20/17 14:58 Cerebral Spinal Fluid Lumbar Puncture Fungal Smear - Final NO FUNGAL ELEMENTS SEEN. Resulted 07/20/17 14:58 Cerebral Spinal Fluid Lumbar Puncture Fungal Culture Pending Resulted Jameel Salas MD PhD Jul 27, 2017 09:21
[2017-07-27] MEDS: EZETIMIBE 10 MG TAB PO SCH (09:31)
[2017-07-27] MEDS: CARVEDILOL 12.5 MG TAB PO SCH ×2 (09:31→20:06)
[2017-07-27] MEDS: DOCUSATE SODIUM 50 MG/SENNA 8.6 MG TAB PO SCH ×2 (09:31→20:08)
[2017-07-27] MEDS: RANOLAZINE 500 MG EXTENDED RELEASE TAB PO SCH ×2 (09:31→20:08)
[2017-07-27] MEDS: FAMOTIDINE 20 MG TAB PO SCH ×2 (09:31→20:07)
[2017-07-27] MEDS: SODIUM CHLORIDE 0.9% FLUSH 10 ML FLUSH IV FLUSH SCH ×2 (09:32→20:10)
[2017-07-27] MEDS: ASPIRIN 81 MG CHEW TAB CHEW SCH (09:32)
[2017-07-27] MEDS: PHENYTOIN SODIUM 100 MG CAP PO SCH ×2 (09:32→20:09)
[2017-07-27] MEDS: ACETAMINOPHEN 325 MG TAB PO PRN ×2 (09:33→17:54)
--- NOTE | 2017-07-27 11:34 | PD.CONS ---
Consult Service Palliative Care Consult Requested By Dr. Solis Primary Care Physician Unknown Reason for Consultation a. To assist with evaluation and management of symptoms including: Confusion , agitation, seizures. b. To assist medical decision maker(s) with: better understanding of current medical conditions; weighing benefits/burdens of medical treatment options; making medical treatment decisions. HPI History of Present Illness This is a 67-year-old male admitted to [facility] psychiatry service 2017 due to agitation and hallucinations. Neurology consultation was requested to evaluate other pathologies. He has a known history of end-stage renal disease on hemodialysis, with which he has been compliant. Nephrology was consulted for dialysis management. Medical service was consulted for medical management. On 07/19, the patient had marked agitation and aggressive behavior requiring Haldol IM and Benadryl IM. 2 hours later the patient developed grand mal seizure-like activity requiring a Halicat and was transferred to [facility] and required intubation for airway protection. He was weaned and extubated 07/22. He remained stable on room air. Gastroenterology was consulted for biliary duct dilation and elevation of alkaline phosphatase and total bilirubin. MRCP showed common bile duct stone. ERCP was attempted 07/26 but was unsuccessful. Pending interventional radiology attempt to flush the stone out. Per GI notes it is a consideration that it may require a combination of both PTC and ERCP may be related to access the stone. Neurology workup included lumbar puncture returning a result of probable Creutzfeldt Rhett disease based on CSF 14-3-3 protein elevation and history of rapidly progressing dementia since May, supported by reports of myoclonic activity noted by the family. No brain biopsy is being considered as it would not alter care. Psychiatry continue to follow and opines that patient does not require readmission to psychiatry. Assessment reveals a well-developed, thin male lying in bed in no acute distress. He is pleasant and cooperative. He is able to provide his past history clearly in chronological order. He is able to tell me his place of , educational history, employment history, marriage history and recent living situation. While he had some confusion on the year, stating that he thought it was 2019, but knew he was in a hospital on [facility]. He denied any shortness of breath or pain. He complained of being hungry while awaiting procedure. . Function/Cognitive Trajectory Per the report of the family, he began developing symptoms altered mental status in May 2017 and has rapidly decompensated, consistent with Creutzfeldt-Gary's disease. He remains disoriented with poor memory recall but alert and able to follow commands. He will likely continue to decline, consistent with the disease. Review of Systems ROS Limitations: Altered Mental Status (Patient is confused and unable to reliably provide their own ROS. 10 part ROS taken as best as possible from medical record and available family.) Constitutional: COMPLAINS OF: Generalized weakness Endocrine: DENIES: Heat/cold intolerance, Polydipsia, Polyuria, Polyphagia Eyes: DENIES: Blurred vision, Diplopia, Eye inflammation, Eye pain, Vision loss , Photosensitivity, Double Vision, Blind spots Ears, nose, mouth, throat: DENIES: Tinnitus, Hearing loss, Vertigo, Nasal discharge, Oral lesions, Throat pain, Hoarseness, Ear Pain, Running Nose, Epistaxis, Sinus Pain, Toothache, Odynophagia Respiratory: DENIES: Apneas, Cough, Snoring, Wheezing, Hemoptysis, Sputum production, Shortness of breath Cardiovascular: DENIES: Chest pain, Palpitations, Syncope, Dyspnea on Exertion , PND, Lower Extremity Edema, Orthopnea, Claudication Gastrointestinal: DENIES: Abdominal pain, Black stools, Bloody stools, Constipation, Diarrhea, Nausea, Vomiting, Difficulty Swallowing, Anorexia, Dyspepsia or heartburn, Excessive gas, Bloating, Vomiting blood Genitourinary: DENIES: Sexual dysfunction, Urinary frequency, Urinary incontinence, Urgency, Hematuria, Dysuria, Nocturia, Penile Discharge, Testicular Pain, Testicular Swelling, Hesitancy, Dribbling, Decreased stream Musculoskeletal: DENIES: Joint pain, Muscle aches, Stiffness, Joint Swelling, Back pain, Neck pain, Decreased range of motion Integumentary: DENIES: Abnormal pigmentation, Nail changes, Pruritus, Rash, Nodules, Tumors, Excessive dryness, Non-healing sores Hematologic/Lymphatics: DENIES: Bruising, Lymphadenopathy, Prolonged bleed w/ proced, History of transfusions Immunologic/Allergic: DENIES: Eczema, Urticaria Neurologic: COMPLAINS OF: Seizures Psychiatric: COMPLAINS OF: Anxiety, Confusion, Agitation Past Family Social History Coded Allergies: No Known Allergies (Unverified , 07/15/17) Past Medical History Seizure disorder ESRD on dialysis M W F HTN Hypothyroid Hyperlipidemia Dementia Anemia and chronic kidney disease GERD Coronary artery disease status post coronary artery bypass grafting Anxiety . Past Surgical History CABG AV fistula placement RUE . Reported Medications Reported Meds & Active Scripts Active Reported Losartan (Losartan Potassium) 25 Mg Tab 25 Mg PO DAILY Coreg (Carvedilol) 12.5 Mg Tab 12.5 Mg PO BID Isosorbide Mononitrate ER (Isosorbide Mononitrate) 60 Mg Tab 60 Mg PO DAILY Ranexa ER 12 HR (Ranolazine) 1,000 Mg Tab 1,000 Mg PO BID Sensipar (Cinacalcet) 30 Mg Tab 60 Mg PO HS Renvela (Sevelamer Carbonate) 800 Mg Tab 2,400 Mg PO TIDAC Levothyroxine (Levothyroxine Sodium) 100 Mcg Tab 100 Mcg PO DAILY Zetia (Ezetimibe) 10 Mg Tab 10 Mg PO DAILY Crestor (Rosuvastatin Calcium) 40 Mg Tab 40 Mg PO HS Xanax (Alprazolam) 0.25 Mg Tab 0.25-0.5 Mg PO Q12HR PRN Zoloft (Sertraline HCl) 50 Mg Tab 25 Mg PO HS Meclizine (Meclizine HCl) 25 Mg Tab 25 Mg PO TID PRN Aspirin Adult Low Strength (Aspirin) 81 Mg Tabdr 81 Mg PO DAILY Omeprazole 20 Mg Tab 20 Mg PO DAILY . Current Medications Medications (Trade) Dose Ordered Sig/Isis Route Start Time Stop Time Status Last Admin (Ativan Inj) 1 mg Q6H PRN IV 07/19/17 16:15 07/20/17 05:24 (NS Flush) 2 ml UNSCH PRN IV FLUSH 07/19/17 16:30 07/27/17 05:48 (NS Flush) 2 ml BID IV FLUSH 07/19/17 21:00 07/27/17 09:32 (Tylenol) 650 mg Q6H PRN PO 07/19/17 16:30 07/27/17 09:33 (Ativan Inj) 2 mg Q4H PRN IV PUSH 07/19/17 16:30 07/24/17 19:59 (Duoneb Neb) 1 ampule Q2HR NEB PRN INH 07/19/17 16:30 Miscellaneous Information 1 Q361D XX 07/19/17 16:30 (Chlorhexidine 2% Cloth) Taper DAILY@04 TOP 07/20/17 04:00 07/16/18 03:59 07/25/17 03:13 (Chlorhexidine 2% Cloth) 3 pack UNSCH PRN TOP 07/19/17 16:30 (Sommer-Colace) 1 tab BID PO 07/19/17 21:00 07/27/17 09:31 (Milk Of Magnesia Liq) 30 ml Q12H PRN PO 07/19/17 16:30 (Senokot) 17.2 mg Q12H PRN PO 07/19/17 16:30 (Dulcolax Supp) 10 mg DAILY PRN RECTAL 07/19/17 16:30 (Lactulose Liq) 30 ml DAILY PRN PO 07/19/17 16:30 (Peridex 0.12% Liq) 15 ml BID@08,20 MT 07/19/17 20:00 07/22/17 08:22 (Synthroid) 100 mcg DAILY@0600 PO 07/20/17 06:00 07/27/17 05:45 (Coreg) 12.5 mg Q12HR PO 07/19/17 21:00 Future hold 07/27/17 09:31 (Renvela) 800 mg TIDAC PO 07/20/17 08:00 07/26/17 17:47 (Aspirin Chew) 81 mg DAILY CHEW 07/20/17 09:00 07/27/17 09:32 (Zetia) 10 mg DAILY PO 07/20/17 09:00 07/27/17 09:31 (Lipitor) 80 mg HS PO 07/19/17 21:00 07/26/17 21:38 (Ranexa) 1,000 mg Q12HR PO 07/19/17 21:00 07/27/17 09:31 Sodium Chloride 1,000 ml @ 0 mls/hr TITRATE PRN OTHER 07/19/17 20:30 (Heparin Inj) 8,000 units UNSCH PRN IV FLUSH 07/19/17 20:30 Sodium Chloride 1,000 ml @ 200 mls/hr Q5H PRN OTHER 07/19/17 20:30 Sodium Chloride 200 ml @ 0 mls/hr UNSCH PRN IV 07/19/17 20:30 (Mannitol Inj) 12.5 gm UNSCH PRN IV PUSH 07/19/17 20:30 Albumin Human 100 ml @ 60 mls/hr UNSCH PRN IV 07/19/17 20:30 (NS Flush) 5 ml UNSCH PRN IV FLUSH 07/19/17 20:30 (Heparin Inj) Dwell Heparin to f... UNSCH PRN OTHER 07/19/17 20:30 (Gentamicin Inj) 10 mg UNSCH PRN OTHER 07/19/17 20:30 (D50w (Vial) Inj) 50 ml UNSCH PRN IV PUSH 07/19/17 20:30 07/25/17 17:12 (Glucagon Inj) 1 mg UNSCH PRN OTHER 07/19/17 20:30 (NovoLOG SUPPLEMENTAL SCALE) 1 ACHS SLIDING SCALE SQ 07/19/17 21:00 (Gelfoam 12 Mm/7 Mm Top) 1 foam UNSCH PRN TOPICAL 07/19/17 20:30 07/24/17 13:28 (Zofran Inj) 4 mg UNSCH PRN IV PUSH 07/19/17 20:30 (Tylenol) 650 mg UNSCH X1 PRN PO 07/19/17 20:30 08/18/17 20:29 (Benadryl) 25 mg UNSCH PRN PO 07/19/17 20:30 (Nitrostat Sl) 0.4 mg UNSCH PRN SL 07/19/17 20:30 (Catapres) 0.1 mg UNSCH PRN PO 07/19/17 20:30 (Brethine Inj) 1 mg UNSCH PRN SQ 07/20/17 09:45 (Duoneb Neb) 1 ampule Q6HR NEB INH 07/23/17 16:00 07/27/17 08:08 (Ativan Inj) 1 mg Q4H PRN IV 07/23/17 10:45 07/25/17 23:12 (Imdur) 60 mg DAILY@0700 PO 07/26/17 07:00 07/27/17 05:45 (Pepcid) 10 mg BID PO 07/26/17 21:00 07/27/17 09:31 (Chloraseptic Tobi) 1 lozenge UNSCH PRN BUCCAL 07/27/17 00:30 (Dilantin) 200 mg BID PO 07/27/17 09:15 07/27/17 09:32 . Family History Father had dementia. . Substance Use Tobacco: Denies. Alcohol: Occasional. Prescription med abuse: Denies. Illicits: Denies. . 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 He was previously and has an ex- and 3 children in [place]. He has been to his current for over 36 years and has 4 children in [place]. . Spiritual/Cultural Factors He is Confucianist and his will have their medical office assistant instructor, and visit him for prayer. . Living Will: Never completed Health Care Surrogate: Never completed Durable Power of Metallurgist Helper: Never completed Health Care Surrogate(s): Never completed. . Documented care wishes: Never completed. . Today's verbally stated goals: Family understands that his case is terminal as this is a new diagnosis that they are just beginning to adjust to they wish to take some time to consider and discuss amongst themselves. Their goal is to take him home and keep him comfortable. They have contacted detox hospice and arrange services already. . Family/friends goals: Family wishes him to be comfortable and extend his life as long as possible. . Ethical and Legal Issues None unnoted. . Physical Exam Vital Signs Date Time Temp Pulse Resp B/P (MAP) Pulse Ox O2 Delivery O2 Flow Rate FiO2 07/27/17 08:09 95 21 07/27/17 04:12 100 07/27/17 04:00 98.1 72 20 124/60 (81) 96 07/27/17 04:00 69 07/27/17 00:00 98.8 80 20 115/61 (79) 99 07/27/17 00:00 81 07/26/17 21:18 100 07/26/17 20:00 80 07/26/17 20:00 Room Air 07/26/17 20:00 97.9 82 18 114/58 (76) 99 07/26/17 19:30 97.0 76 17 146/64 (91) 95 Exam CONSTITUTIONAL/GENERAL: This is an adequately nourished patient, in no apparent distress. TUBES/LINES/DRAINS: PIV L ACF, PIV RORY, AV shunt right brachial SKIN: No jaundice, rashes, or lesions. Ecchymoses on upper extremities. No wounds seen anteriorly. Skin temperature appropriate. Not diaphoretic. HEAD: Atraumatic. Normocephalic. EYES: Pupils equal and round and reactive. Extraocular motions intact. No scleral icterus. No injection or drainage. Fundi not examined. ENT: Hearing grossly normal. Nose without bleeding or purulent drainage. Throat without visible erythema, exudates, masses, or lesions. NECK: Trachea midline. Supple, nontender. No palpable thyroid enlargement or nodularity. CARDIOVASCULAR: Regular rate and rhythm without murmurs, gallops, or rubs. No JVD. Peripheral pulses symmetric. RESPIRATORY/CHEST: Symmetric, unlabored respirations. Clear to auscultation. Breath sounds equal bilaterally. No wheezes, rales, or rhonchi. GASTROINTESTINAL: Abdomen soft, non-tender, nondistended. No hepato-splenomegaly , or palpable masses. No guarding. Bowel sounds present. GENITOURINARY: Without palpable bladder distension. MUSCULOSKELETAL: Extremities without clubbing, cyanosis, or edema. No joint tenderness or effusion noted. No calf tenderness. No mottling or clubbing. LYMPHATICS: No palpable cervical or supraclavicular adenopathy. NEUROLOGICAL: Awake and alert. Motor and sensory grossly within normal limits. Follows commands. Answers questions appropriately. Moves all extremities. PSYCHIATRIC: No obvious anxiety/depression. no apparent hallucinations or other psychotic thought process. Diagnostic Tests Laboratory Laboratory Tests Test 07/25/17 04:30 07/26/17 05:00 HIV (1&2) Antibody NEGATIVE (NEGATIVE) White Blood Count 7.5 TH/MM3 (4.0-11.0) Red Blood Count 2.59 MIL/MM3 (4.50-5.90) Hemoglobin 8.1 GM/DL (13.0-17.0) Hematocrit 23.5 % (39.0-51.0) Mean Corpuscular Volume 90.5 FL (80.0-100.0) Mean Corpuscular Hemoglobin 31.1 PG (27.0-34.0) Mean Corpuscular Hemoglobin Concent 34.4 % (32.0-36.0) Red Cell Distribution Width 15.8 % (11.6-17.2) Platelet Count 195 TH/MM3 (150-450) Mean Platelet Volume 9.7 FL (7.0-11.0) Neutrophils (%) (Auto) 72.3 % (16.0-70.0) Lymphocytes (%) (Auto) 12.9 % (9.0-44.0) Monocytes (%) (Auto) 9.6 % (0.0-8.0) Eosinophils (%) (Auto) 4.9 % (0.0-4.0) Basophils (%) (Auto) 0.3 % (0.0-2.0) Neutrophils # (Auto) 5.5 TH/MM3 (1.8-7.7) Lymphocytes # (Auto) 1.0 TH/MM3 (1.0-4.8) Monocytes # (Auto) 0.7 TH/MM3 (0-0.9) Eosinophils # (Auto) 0.4 TH/MM3 (0-0.4) Basophils # (Auto) 0.0 TH/MM3 (0-0.2) CBC Comment DIFF FINAL Differential Comment Blood Urea Nitrogen 73 MG/DL (7-18) Creatinine 9.12 MG/DL (0.60-1.30) Random Glucose 94 MG/DL (74-106) Total Protein 6.4 GM/DL (6.4-8.2) Albumin 2.3 GM/DL (3.4-5.0) Calcium Level 8.7 MG/DL (8.5-10.1) Alkaline Phosphatase 217 U/L (45-117) Aspartate Amino Transf (AST/SGOT) 58 U/L (15-37) Alanine Aminotransferase (ALT/SGPT) 35 U/L (12-78) Total Bilirubin 1.3 MG/DL (0.2-1.0) Sodium Level 136 MEQ/L (136-145) Potassium Level 4.4 MEQ/L (3.5-5.1) Chloride Level 99 MEQ/L (98-107) Carbon Dioxide Level 25.7 MEQ/L (21.0-32.0) Anion Gap 11 MEQ/L (5-15) Estimat Glomerular Filtration Rate 6 ML/MIN (>89) . Result Diagram: 07/26/17 0500 07/26/17 0500 Microbiology Microbiology Date/Time Source Procedure Growth Status 07/21/17 01:00 Blood Peripheral Aerobic Blood Culture - Final NO GROWTH IN 5 DAYS Complete 07/21/17 01:00 Blood Peripheral Anaerobic Blood Culture - Final NO GROWTH IN 5 DAYS Complete 07/20/17 14:58 Cerebral Spinal Fluid Lumbar Puncture Fungal Smear - Final NO FUNGAL ELEMENTS SEEN. Resulted 07/20/17 14:58 Cerebral Spinal Fluid Lumbar Puncture Fungal Culture Pending Resulted . Imaging Last Impressions Abdomen X-Ray 07/25/17 0000 Signed Impressions: Service Date/Time: Tuesday, July 25, 2017 12:53 - CONCLUSION: Attempted ERCP as described above. Tiago Butcher MD Chest X-Ray 07/24/17 0600 Signed Impressions: Service Date/Time: Monday, July 24, 2017 03:51 - CONCLUSION: 1. Status post extubation with stable subtle patchy right lower lung zone airspace disease. Vik Colmenares MD Cholangiopancreatography MRI 07/21/17 0000 Signed Impressions: Service Date/Time: Friday, July 21, 2017 12:23 - CONCLUSION: 1. Tiny gallstones. 2. Dilated common bile duct and common hepatic duct with a solitary 5 mm filling defect in common bile duct. 3. Right pleural effusion and ascites right upper quadrant . Klaus Schneider MD Lumbar Puncture Fluoroscopy 07/20/17 0000 Signed Impressions: Service Date/Time: June 14:34 - CONCLUSION: Uncomplicated fluoroscopically guided lumbar puncture. Klaus Haley Jr., MD Gall Bladder Ultrasound 07/20/17 0000 Signed Impressions: Service Date/Time: June 08:54 - CONCLUSION: Gallstone. Moderate extrahepatic biliary ductal dilatation End-stage right kidney Juan Sarkar MD Head CT 07/19/17 0000 Signed Impressions: Service Date/Time: Wednesday, July 19, 2017 17:39 - CONCLUSION: Normal examination. Juan Sarkar MD . Procedures 07/19: Intubation 07/26: ERCP . Patient/Family Conference Present at Family Conference: Spoke with patient's Mila Wyatt and daughter Sanaz Longoria at bedside and updated them as to patient condition, new diagnosis of Creutzfeldt-Gary's disease, the prognosis related to that and goals of care. The expressed severe displeasure regarding the number of falls that occurred in psychiatry and his fractured rib. She states that he has a large bruise and is very painful from all the falls and stated "I am going to call a tool clerk. They did not watch him well enough." I did provide a patient information printed out from the up-to-date site giving basic information on the disease itself. I did encourage them to do further research to help in their understanding and contact information was provided in case any questions came up that they were not able to answer. We did review CODE STATUS, healthcare decision maker and the family wished to take some time to consider that. The by [place] statutes would be the healthcare proxy and there are 4 adult children living in [place] to assist and support the mother in decision making. I did schedule to meet with them again tomorrow for further discussion. Family Conference Time (mins): 40 Family Conference Location: Bedside Issues Discussed: * Palliative care role, purpose, approach * Additional medical, psychosocial, and spiritual history * Patients general health, functional status, and cognitive changes in the months leading up to the current hospitalization * Patient/family understanding of the current medical problems * Patient/family understanding of prognosis * Patients goals of care as best understood from advance directives and/or conversations and/or values * Current medical treatment options and benefits/burdens of those options * Likely scenarios comparing ongoing aggressive care with a transition to comfort measures only * Questions answered to the best of my ability * Palliative care contact information provided Assessment and Plan Disease Oriented Problem List: (1) Creutzfeldt-Gary disease, unspecified (2) Seizures (3) ESRD (end stage renal disease) on dialysis (4) Hyperkalemia (5) Hypertension Symptom Scale: (1) Confusion (2) Agitation Pertinent Non-Medical Issues Psychosocial:Patient was born in [place] and moved to [place] when he was 16, attended school for 1 year and 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 He was previously and has an ex- and 3 children in [place]. He has been to his current for over 36 years and has 4 children in [place]. Spiritual: He is Confucianist and his will have their medical office assistant instructor, and visit him for prayer. Legal: No legal issues noted. Ethical issues impacting care: No ethical issues noted . Important Contacts Daughter: Sanaz Longoria Spouse: Mila Wyatt . Prognosis His prognosis is poor. Based on the compendium of MRI, EEG and CSF lab findings , 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 Prognosis is generally within a few months of symptom onset. Family was apprised of this diagnosis today by neurology and may need some time to process these findings prior to deciding goals of care. . Code Status: Full Code Plan PLAN: Legal decision maker: While the patient was able to answer questions correctly today, his orientation is intermittent. Per [place] statute his would be his proxy decision maker and she is willing to fulfill that. He does have 4 children also willing to assist in her my discussion with the , all decisions will be made cooperatively. Goals: Aggressive so far. CODE STATUS: FULL CODE SYMPTOMS: * Confusion: His confusion is intermittent. He was able to tell me that he was in the hospital on [facility], stated that the year was 2019 and stated that "some crazy man is the president". He gave a fairly clear history of his family. Stated that he was previously and had 3 children who live in [place]. He has been with his second for over 35 years and has 4 children who live in the area. * Agitation: Ativan 1 mg every 4 hours as needed has been prescribed for agitation or restlessness. His last required dose was 07/25. No agitation or restlessness seen today. * Seizures: History receiving Dilantin 200 mg twice daily. Levels are being monitored. Today's level is pending. No current seizure activity. Seizure precautions in effect. Summary This is a 67-year-old male with newly diagnosed Creutzfeldt-Gary disease. He has had a rapid decline from May to now. He has intermittently changing confusion and agitation. As there is no treatment for Creutzfeldt Rhett, he would be suitable for hospice if goals were consistent. The family is still adjusting to this new diagnosis and wish to take some time to consider the ramifications but are insistent that they do wish to take him home when stable for discharge. Palliative care will continue to follow the patient during hospital course as condition evolves, to assist patient/decision-maker with understanding of their medical conditions, weighing benefits/burdens of treatment options, for clarification of goals of treatment. Additionally will assist with any symptoms of palliative concern. . Time Spent Time Periods: 12: 00-12: 40 Total Floor Time (mins): 75 Face to Face Time (mins): 40 >50% Counseling/Coord of Care: Yes Thank you for the opportunity to participate in the care of Mr. Wyatt. Attestation To help prompt me to consider important information that might be impacting today's encounter and assessment, information from prior notes written by myself or my colleagues may have been "brought forward" into today's note. My signature on this note, however, is an attestation that I personally performed the exam, history, and/or decision-making noted today, and, unless otherwise indicated, the interactions with patient, family, and staff as well as the review of records all occurred today. I also attest that the listed assessment and stated plan reflect my best clinical judgment today based on the combination of historical information, prior notes, and today's exam/ interactions. When time spent is documented, it refers only to time spent today by the signer, or if indicated, combined time spent today by collaborating physician/nurse practitioner. . Tasia Salcido Jul 27, 2017 11:25
[2017-07-27] MEDS ORDERED: MIDAZOLAM HCL 2 MG/2 ML VIAL ONE (14:57)
[2017-07-27] MEDS ORDERED: LEVOFLOXACIN 500 MG PREMIX INJ 100 ML IV ONE (15:10)
[2017-07-27] MEDS ORDERED: IOHEXOL 350 MG/ML 50 ML BTL (for RAD DIAG) OTHER ONE (15:51)
--- NOTE | 2017-07-27 16:12 | PD.RAD ---
Post Procedure Progress Note Pre Procedure Diagnosis: (1) Biliary calculus with obstruction without cholecystitis Post Procedure Diagnosis: (1) Biliary calculus with obstruction without cholecystitis Procedure Date: Jul 27, 2017 Supervising Radiologist: Juan Sarkar Proceduralist/Assist: RT I[place](R) Estimated blood loss: 2ml Anesthesia: Local, Conscious Sedation Plan of Activity Patient to Unit: R[facility] Patient Condition: Poor See PACS Report for procedural detail/treatment Drainage Procedure Procedure 1 Imaging Guidance: Fluoroscopy Side: Right Procedure Type: Biliary Drainage Procedure: Placement Nepali: 8 Drainage: [place] drainage Fluid Description: Bilious Findings: CBD stone Plan will return to [facility] in for cholangioplasty with stone extraction under anesthesia Juan Sarkar MD Jul 27, 2017 16:12
--- NOTE | 2017-07-27 16:51 | RADRPT ---
EXAM DATE/TIME: 07/27/2017 14:53 [facility] COMPARISON: No previous studies available for comparison. INDICATIONS : Patient with a history of common bile duct stone. MEDICAL HISTORY : Dementia Renal failure SURGICAL HISTORY : CABG Rt arm fistula ENCOUNTER: Initial ACUITY: 1 day PAIN SCORE: 0/10 FLUORO TIME: 10.8 minutes IMAGE SERIES: 5 SEDATION TIME: 40 minutes CONTRAST: 40 cc Omnipaque (iohexol) 350 MEDICATION(S): 1.) 2 mg midazolam (Versed) IV 2.) 100 mcg fentanyl (Sublimaze) IV 3.) 500 mg levofloxacin (Levaquin) IV Intra-procedural antibiotics were given as prescribed above. DEVICE(S): 1.) 8 Vincentian biliary drain PROCEDURE : 1. Ultrasound guided puncture of the biliary tree. 2. Percutaneous antegrade cholangiogram. 3. Biliary stent placement. 4. Conscious sedation with continuous EKG and oximetry monitoring. TECHNIQUE: The patient was placed supine on the fluoroscopy table. The abdomen was prepped in tete rile fashion. Full sterile technique was used, including cap, mask, sterile gloves and gown and a [employer] sterile sheet. Hand hygiene and 2% chlorhexidine and/or betadine/alcohol prep was utilized per pro tocol for cutaneous antisepsis. The skin and subcutaneous tissues were infiltrated with lidocaine marcelo ution. A small dermatotomy was made. Under direct fluoroscopic guidance, a 22 gauge Chiba needle was used to puncture into the right lobe of the liver. Small volume test contrast injections were performed. A peripheral biliary radical was fairly quickly identified. Percutaneous cholangiography was performed confirming the presence of a 6 or 7 mm stone in the proximal common hepatic duct. A .018 inch guidewire was introduced and manipulat ed into the common bile duct. The AccuStick dilator was used to assist with insertion of a 4 Vincentian v essel dilator. The transparenchymal tract was tested over a Aguilar-Gianna adapter revealing direct acce ss into the biliary tree with no significant vascular opacification identified. AccuStick cannula was then additionally used to assist with insertion of a 6.5 Vincentian vessel dilator through which a stiff angled Glidewire was inserted and manipulated without difficulty into the duodenum. An 8 Vincentian internal/external biliary drainage catheter was then inserted and formed up with loop in the second portion of the duodenum. Side holes extended up into proximal biliary branch vessels. The catheter was secured with silk suture and connected to gravity drainage with good return of bile. The patient tolerated the procedure well and was taken to recovery in stable condition. FINDINGS: Common duct stone. Mild extrahepatic biliary ductal dilatation. CONCLUSION: Uncomplicated fluoroscopic guided percutaneous biliary drainage as described in leidy l above. We have the patient scheduled to return tomorrow to undergo cholangioplasty with stone extra ction under anesthesia. Juan Sarkar MD on July 27, 2017 at 16:44 Board Certified Radiologist. This report was verified electronically.
--- NOTE | 2017-07-27 17:12 | HHI.NPPN ---
Subjective History of Present Illness 67 year old with ESRD, on Hemodialysis, admitted with seizures, he was intubated Additional Remarks more alert Objective Data Data Vital Signs Date Time Temp Pulse Resp B/P (MAP) Pulse Ox O2 Delivery O2 Flow Rate FiO2 07/27/17 16:10 62 18 96/49 (65) 100 07/27/17 15:55 98.1 67 18 100/52 (68) 99 07/27/17 08:09 95 21 07/27/17 08:05 72 07/27/17 08:00 97.4 75 20 118/68 (85) 100 07/27/17 07:00 Room Air 07/27/17 04:12 100 07/27/17 04:00 98.1 72 20 124/60 (81) 96 07/27/17 04:00 69 07/27/17 00:00 98.8 80 20 115/61 (79) 99 07/27/17 00:00 81 07/26/17 21:18 100 07/26/17 20:00 80 07/26/17 20:00 Room Air 07/26/17 20:00 97.9 82 18 114/58 (76) 99 07/26/17 19:30 97.0 76 17 146/64 (91) 95 -: 07/26/17 0500 07/26/17 0500 Physical Exam General Appearance: Well Developed Pulmonary Resp Exam: Clear Bilaterally Cardiology CV Exam: Regular Gastrointestinal/Abdomen GI Exam: Soft, Non-Tender, Bowel Sounds Present Extremeties Extremities Exam: No Edema Assessment/Plan Problem List: (1) ESRD (end stage renal disease) on dialysis ICD Codes: N18.6 - End stage renal disease; Z99.2 - Dependence on renal dialysis Plan: ERCP could not be completed due to diverticulum bile duct drain placed Status post LP MRI, EEG and CSF lab findings, 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 Prognosis is generally within a few months of symptom onset. neurology discussed with family, HD in am (2) Seizures ICD Codes: R56.9 - Unspecified convulsions Plan: Neurology following on Phenytoin Joshua Hernadez MD Jul 27, 2017 17:12
--- NOTE | 2017-07-27 17:58 | HHI.GIFU ---
Subjective Remarks Patient laying in bed comfortably, no new complaint, awake but not truly conversational, palliative care team was in the room Objective Vitals I&O Vital Signs Date Time Temp Pulse Resp B/P (MAP) Pulse Ox O2 Delivery O2 Flow Rate FiO2 07/27/17 16:10 62 18 96/49 (65) 100 07/27/17 15:55 98.1 67 18 100/52 (68) 99 07/27/17 08:09 95 21 07/27/17 08:05 72 07/27/17 08:00 97.4 75 20 118/68 (85) 100 07/27/17 07:00 Room Air 07/27/17 04:12 100 07/27/17 04:00 98.1 72 20 124/60 (81) 96 07/27/17 04:00 69 07/27/17 00:00 98.8 80 20 115/61 (79) 99 07/27/17 00:00 81 07/26/17 21:18 100 07/26/17 20:00 80 07/26/17 20:00 Room Air 07/26/17 20:00 97.9 82 18 114/58 (76) 99 07/26/17 19:30 97.0 76 17 146/64 (91) 95 I/O 07/26/17 07/26/17 07/26/17 07/27/17 07/27/17 07/27/17 07:00 15:00 23:00 07:00 15:00 23:00 Intake Total 0 ml Output Total 3000 ml 0 ml Balance -3000 ml 0 ml Intake Oral 0 ml Output Urine Total 0 ml Hemodialysis 3000 ml # Voids 0 # Bowel Movements 2 0 Laboratory Laboratory Tests Test 07/27/17 10:41 Phenytoin (Dilantin) Level 4.7 Date/Time Source Procedure Growth Status 07/21/17 01:00 Blood Peripheral Aerobic Blood Culture - Final NO GROWTH IN 5 DAYS Complete 07/21/17 01:00 Blood Peripheral Anaerobic Blood Culture - Final NO GROWTH IN 5 DAYS Complete 07/20/17 14:58 Cerebral Spinal Fluid Lumbar Puncture Fungal Smear - Final NO FUNGAL ELEMENTS SEEN. Resulted 07/20/17 14:58 Cerebral Spinal Fluid Lumbar Puncture Fungal Culture - Preliminary NO GROWTH IN 1 WEEK Resulted Physical Exam HEENT: Normocephalic; atraumatic, CHEST: CTA CARDIAC: irr HR + murmur ABDOMEN: Soft, nondistended, bowel sounds active , mild epigastric TTP EXTREMITIES: No clubbing, cyanosis, or edema. SKIN: Normal; no rash; no jaundice. 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 Shah and he will have PTC with possible stone extraction today Beth Barr MD Jul 27, 2017 17:58
[2017-07-27] MEDS ORDERED: EPOETIN ALFA 10,000 UNITS/ML VIAL IV PUSH PRN (18:15)
[2017-07-27] MEDS: ATORVASTATIN 80 MG TAB PO SCH (20:06)
[2017-07-28] VITALS (9 sets, daily range): BP systolic 93–117; BP diastolic 46–68; PULSE 63–84; RESP 16–20; TEMP 97–99.2; O2SAT 98–100
[2017-07-28] MEDS: ACETAMINOPHEN/HYDROcodone 325 MG/5 MG TAB PO PRN ×2 (01:45→13:30)
[2017-07-28] MEDS: CHLORHEXIDINE GLUCONATE 2 % 1 PACK (2 CLOTHS) TOP SCH (03:34)
[2017-07-28] MEDS: LEVOTHYROXINE SODIUM 100 MCG TAB PO SCH (06:21)
[2017-07-28] MEDS: ISOSORBIDE MONONITRATE 60 MG CR TAB (IMDUR) PO SCH (06:21)
[2017-07-28] MEDS: SEVELAMER CARBONATE 800 MG TAB PO SCH ×3 (08:00→16:58)
[2017-07-28] MEDS: INSULIN ASPART SUPPLEMENTAL SCALE SQ SCH ×4 (08:00→21:00)
[2017-07-28] MEDS: CHLORHEXIDINE 0.12% (ORAL KIT) 15 ML CUP MT SCH ×2 (08:00→20:00)
--- NOTE | 2017-07-28 08:03 | HHI.PR ---
Subjective Remarks In bed, family at bedside complains of pain at the surgical site and the right lateral chest rib fracture & hematoma. His blood pressure was noted below the procedure today and received IV fluids bolus of normal saline. No fever or chills. No nausea vomiting no diarrhea or constipation. Plan to go for dialysis later today. He is pleasantly confused. Objective Vitals Vital Signs Date Time Temp Pulse Resp B/P (MAP) Pulse Ox O2 Delivery O2 Flow Rate FiO2 07/28/17 04:00 98.1 69 18 100/68 (79) 99 07/28/17 00:00 Room Air 07/28/17 00:00 97.0 70 18 98/46 (63) 99 07/27/17 23:41 78 07/27/17 20:10 21 07/27/17 20:03 97.8 66 18 102/51 (68) 100 07/27/17 20:00 Room Air 07/27/17 19:41 66 07/27/17 16:10 62 18 96/49 (65) 100 07/27/17 16:00 97.1 63 20 91/40 (57) 100 07/27/17 15:55 98.1 67 18 100/52 (68) 99 07/27/17 12:00 98.3 76 20 98/59 (72) 100 07/27/17 12:00 75 07/27/17 08:09 95 21 07/27/17 08:05 72 I/O 07/27/17 07/27/17 07/27/17 07/28/17 07/28/17 07/28/17 07:00 15:00 23:00 07:00 15:00 23:00 Intake Total 0 ml 0 ml Output Total 0 ml 90 ml 410 ml Balance 0 ml -90 ml -410 ml Intake Oral 0 ml 0 ml Output Urine Total 0 ml Drainage Total 90 ml 410 ml # Voids 0 2 # Bowel Movements 0 1 Result Diagram: 07/26/17 0500 07/26/17 0500 Imaging Last Impressions Bile Duct Drainage 07/27/17 0000 Signed Impressions: Service Date/Time: July 14:53 - CONCLUSION: Uncomplicated fluoroscopic guided percutaneous biliary drainage as described in detail above. We have the patient scheduled to return tomorrow to undergo cholangioplasty with stone extraction under anesthesia. Juan Sarkar MD Abdomen X-Ray 07/25/17 0000 Signed Impressions: Service Date/Time: Tuesday, July 25, 2017 12:53 - CONCLUSION: Attempted ERCP as described above. Tiago Butcher MD Chest X-Ray 07/24/17 0600 Signed Impressions: Service Date/Time: Monday, July 24, 2017 03:51 - CONCLUSION: 1. Status post extubation with stable subtle patchy right lower lung zone airspace disease. Vik Colmenares MD Cholangiopancreatography MRI 07/21/17 0000 Signed Impressions: Service Date/Time: Friday, July 21, 2017 12:23 - CONCLUSION: 1. Tiny gallstones. 2. Dilated common bile duct and common hepatic duct with a solitary 5 mm filling defect in common bile duct. 3. Right pleural effusion and ascites right upper quadrant . Klaus Schneider MD Lumbar Puncture Fluoroscopy 07/20/17 0000 Signed Impressions: Service Date/Time: June 14:34 - CONCLUSION: Uncomplicated fluoroscopically guided lumbar puncture. Klaus Haley Jr., MD Gall Bladder Ultrasound 07/20/17 0000 Signed Impressions: Service Date/Time: June 08:54 - CONCLUSION: Gallstone. Moderate extrahepatic biliary ductal dilatation End-stage right kidney Juan Sarkar MD Head CT 07/19/17 0000 Signed Impressions: Service Date/Time: Wednesday, July 19, 2017 17:39 - CONCLUSION: Normal examination. Juan Sarkar MD Objective Remarks GENERAL: Pleasant 67 yo male, more awake and alert, appears in NAD, A&Ox3 CARDIOVASCULAR: Regular rate and rhythm without murmurs, gallops, or rubs. RESPIRATORY: Breath sounds equal bilaterally. No accessory muscle use. GASTROINTESTINAL: Abdomen soft, non-tender, nondistended. MUSCULOSKELETAL: No cyanosis, or edema. SKIN: Warm and dry. NEURO: No focal neurological deficits. Procedures intubation/extubation cholecystectomy tube placed by IR 07/27/17 cholangioplasty with stone extraction under anesthesia 07/28/17 by IR A/P Problem List: (1) Seizures ICD Code: R56.9 - Unspecified convulsions (2) ESRD (end stage renal disease) on dialysis ICD Code: N18.6 - End stage renal disease; Z99.2 - Dependence on renal dialysis (3) DEMENTIA IN OTH DISEASES CLASSD ELSWHR W BEHAVIORAL DISTURB ICD Code: F02.81 - DEMENTIA IN OTH DISEASES CLASSD ELSWHR W BEHAVIORAL DISTURB (4) Hyperkalemia ICD Code: E87.5 - Hyperkalemia (5) Brief psychotic disorder ICD Code: F23 - Brief psychotic disorder Status: Acute (6) Hypertension ICD Code: I10 - Essential (primary) hypertension (7) Alzheimer's disease with late onset ICD Code: G30.1 - Alzheimer's disease with late onset; F02.80 - Dementia in other diseases classified elsewhere without behavioral disturbance Assessment and Plan 67 year old male admitted secondary to seizure, intubated at time of admission due to respiratory failure. 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 His family also relate brief jerking activity of limbs suggestive of myoclonus which is also characteristic. Discussed with neurology Dr. Josue jenkins recommendations Consult palliative care, expectant fast deterioration Psychiatry following will, today Continue supportive care Monitor for improvement Seventh rib fracture Supportive care Pain treatments as needed Acute hypoxemic respiratory failure Improved Patient extubated 07/22/17 Oxygen as needed Duo neb treatments as needed Moderate Cardiovascular disease Continue statin Continue Ranexa Continue aspirin Isordil resumed Coreg resumed History of hypertension Hypotension Isordil resumed Coreg resumed Follow blood pressures ESRD Nephrology following Follow renal function Dialysis on an as-needed basis Cholelithiasis Nonobstructing choledocholithiasis Status post ERCP GI following IR consulted s/p cholangioplasty with stone extraction under anesthesia 07/28/17 Hyperlipidemia Continue Sevelamer 800 mg TID Continue Zetia 10mg/d Hypothyroidism Continue levothyroxine 100 mg/day DVT Prophylaxis SCDs Discussed with the patient, nurse Psychiatry evaluation pending Physical therapy recommends placement. Case management consult discharge planning. Discharge plan. Consult palliative care for goals of care. Expect fast deterioration, patient with CJD Audelia Solis MD Jul 28, 2017 08:03
[2017-07-28] MEDS: RANOLAZINE 500 MG EXTENDED RELEASE TAB PO SCH ×2 (08:30→21:15)
[2017-07-28] MEDS: DOCUSATE SODIUM 50 MG/SENNA 8.6 MG TAB PO SCH ×2 (08:30→21:15)
[2017-07-28] MEDS: PHENYTOIN SODIUM 100 MG CAP PO SCH ×2 (08:31→21:15)
[2017-07-28] MEDS: FAMOTIDINE 20 MG TAB PO SCH ×2 (08:31→21:15)
[2017-07-28] MEDS: SODIUM CHLORIDE 0.9% FLUSH 10 ML FLUSH IV FLUSH SCH ×2 (08:31→21:00)
[2017-07-28] MEDS: ASPIRIN 81 MG CHEW TAB CHEW SCH (08:31)
[2017-07-28] MEDS: EZETIMIBE 10 MG TAB PO SCH (08:31)
[2017-07-28] MEDS: CARVEDILOL 12.5 MG TAB PO SCH ×2 (08:31→21:14)
[2017-07-28] MEDS ORDERED: LEVOFLOXACIN 500 MG PREMIX INJ 100 ML IV ONE (10:07)
[2017-07-28] MEDS ORDERED: DO NOT ADM ANY ANTICOAGULANT DRUGS PRN (11:44)
[2017-07-28] MEDS ORDERED: IOHEXOL 350 MG/ML 50 ML BTL (for RAD DIAG) OTHER ONE (11:53)
[2017-07-28] MEDS ORDERED: *morphine SULFATE 4 MG/ML PERIprocedure ONLY ONE (12:14)
--- NOTE | 2017-07-28 12:17 | RADRPT ---
EXAM DATE/TIME: 07/28/2017 11:07 [facility] COMPARISON: No previous studies available for comparison. INDICATIONS : Patient with a history of biliary stones. MEDICAL HISTORY : Dementia Renal failure SURGICAL HISTORY : CABG Rt arm fistula ENCOUNTER: Initial ACUITY: 2 days PAIN SCORE: 0/10 FLUORO TIME: 22.7 minutes IMAGE SERIES: 4 CONTRAST: 35 cc Omnipaque (iohexol) 350 MEDICATION(S): 1.) 500 mg levofloxican (Levaquin) IV Intra-procedural antibiotics were given as prescribed above. DEVICE(S): 1.) 8FR cutting balloon & 5FR yeny balloon Anesthesia and pain control was provided by the Anesthesia department. PROCEDURE : 1. tube cholangiography 2. Fluoroscopic-guided cholangioplasty 3. Biliary stone extraction 4. Fluoroscopic-guided biliary catheter exchange The risks, benefits and alternatives to the procedure were explained and verbal and written consent w as obtained. The site was prepped in sterile fashion. Full sterile technique was used, including ca p, mask, sterile gloves and gown and a large sterile sheet. Hand hygiene and 2% chlorhexidine and/or betadine/alcohol prep was utilized per protocol for cutaneous antisepsis. The skin and subcutaneous tissues were infiltrated with local anesthetic solution. The existing biliary drainage catheter was injected and digital imaging was accomplished, again revea ling a stone in the common duct. Under direct fluoroscopic guidance, a guidewire was introduced throu gh the tube and out into the duodenum to maintain good stable access. The existing tube was removed i ntact. The Berenstein catheter was inserted and positioned into the distal duodenum allowing wire exc hange with placement of a 0.035 inch Flex finder wire into the distal duodenum. An 8 Cuban 25 cm Pin nacle sheath was introduced and manipulated down into the duodenum. A V. 18 wire was inserted and als o positioned into the distal duodenum. An 8 mm cutting balloon was then inserted and used to dilate t he region of the ampulla. Several dilatations were performed with rotation of the cutting balloon in between dilatations. Following this, a 5 Cuban Yeny balloon was introduced, inflated and used to push the stone debris from the common duct out into the duodenum. After several balloon sweeps, repea t cholangiography was performed through the sheath revealing no residual filling defects in the commo n duct. The sheath was removed and a 10 Cuban internal/external biliary drainage catheter was introduced and formed up with loop in the second portion of the duodenum and sideholes extending up into the right intrahepatic biliary tree. The catheter was secured with silk suture and connected to gravity drainag e. The patient tolerated the procedure well and was taken to anesthesia recovery in good stable conditio n. CONCLUSION: Uncomplicated cholangioplasty with biliary stone removal. The existing drainage catheter can be cappe d for patient comfort purposes if clinically appropriate. Ideally, patient would return in 2-3 weeks as an outpatient for followup cholangiography and tube removal if indicated. Juan Sarkar MD on July 28, 2017 at 12:06 Board Certified Radiologist. This report was verified electronically.
--- NOTE | 2017-07-28 14:53 | HHI.GIFU ---
Subjective Remarks Pt resting in bed, c/o RUQ pain, back from IR procedure. Family at bedside. ([place] De La Fuente) Objective Vitals I&O Vital Signs Date Time Temp Pulse Resp B/P (MAP) Pulse Ox O2 Delivery O2 Flow Rate FiO2 07/28/17 12:45 97.6 60 20 92/51 (65) 98 Room Air 07/28/17 12:30 60 20 90/57 (68) 100 07/28/17 12:15 60 17 94/51 (65) 100 07/28/17 12:00 59 24 111/57 (75) 100 07/28/17 11:45 59 22 83/45 (58) 100 07/28/17 11:39 97.6 59 20 82/40 (54) 100 Nasal Cannula 2 07/28/17 10:17 99 21 07/28/17 08:00 97.2 68 20 117/58 (77) 100 07/28/17 08:00 71 07/28/17 07:00 Room Air 07/28/17 04:00 98.1 69 18 100/68 (79) 99 07/28/17 00:00 Room Air 07/28/17 00:00 97.0 70 18 98/46 (63) 99 07/27/17 23:41 78 07/27/17 20:10 21 07/27/17 20:03 97.8 66 18 102/51 (68) 100 07/27/17 20:00 Room Air 07/27/17 19:41 66 07/27/17 16:10 62 18 96/49 (65) 100 07/27/17 16:00 97.1 63 20 91/40 (57) 100 07/27/17 15:55 98.1 67 18 100/52 (68) 99 I/O 07/27/17 07/27/17 07/27/17 07/28/17 07/28/17 07/28/17 07:00 15:00 23:00 07:00 15:00 23:00 Intake Total 0 ml 100 ml 500 ml Output Total 0 ml 90 ml 410 ml Balance 0 ml 10 ml -410 ml 500 ml Intake Oral 0 ml 0 ml IV Total 100 ml 500 ml Output Urine Total 0 ml Drainage Total 90 ml 410 ml # Voids 0 2 # Bowel Movements 0 1 Laboratory Date/Time Source Procedure Growth Status 07/21/17 01:00 Blood Peripheral Aerobic Blood Culture - Final NO GROWTH IN 5 DAYS Complete 07/21/17 01:00 Blood Peripheral Anaerobic Blood Culture - Final NO GROWTH IN 5 DAYS Complete 07/20/17 14:58 Cerebral Spinal Fluid Lumbar Puncture Fungal Smear - Final NO FUNGAL ELEMENTS SEEN. Resulted 07/20/17 14:58 Cerebral Spinal Fluid Lumbar Puncture Fungal Culture - Preliminary NO GROWTH IN 1 WEEK Resulted Imaging Last Impressions Cholangiogram 07/28/17 0000 Signed Impressions: Service Date/Time: Friday, July 28, 2017 11:07 - CONCLUSION: Uncomplicated cholangioplasty with biliary stone removal. The existing drainage catheter can be capped for patient comfort purposes if clinically appropriate. Ideally, patient would return in 2-3 weeks as an outpatient for followup cholangiography and tube removal if indicated. Juan Sarkar MD Bile Duct Drainage 07/27/17 0000 Signed Impressions: Service Date/Time: July 14:53 - CONCLUSION: Uncomplicated fluoroscopic guided percutaneous biliary drainage as described in detail above. We have the patient scheduled to return tomorrow to undergo cholangioplasty with stone extraction under anesthesia. Juan Sarkar MD Abdomen X-Ray 07/25/17 0000 Signed Impressions: Service Date/Time: Tuesday, July 25, 2017 12:53 - CONCLUSION: Attempted ERCP as described above. Tiago Butcher MD Chest X-Ray 07/24/17 0600 Signed Impressions: Service Date/Time: Monday, July 24, 2017 03:51 - CONCLUSION: 1. Status post extubation with stable subtle patchy right lower lung zone airspace disease. Vik Colmenares MD Cholangiopancreatography MRI 07/21/17 0000 Signed Impressions: Service Date/Time: Friday, July 21, 2017 12:23 - CONCLUSION: 1. Tiny gallstones. 2. Dilated common bile duct and common hepatic duct with a solitary 5 mm filling defect in common bile duct. 3. Right pleural effusion and ascites right upper quadrant . Klaus Schneider MD Lumbar Puncture Fluoroscopy 07/20/17 0000 Signed Impressions: Service Date/Time: June 14:34 - CONCLUSION: Uncomplicated fluoroscopically guided lumbar puncture. Klaus Haley Jr., MD Gall Bladder Ultrasound 07/20/17 0000 Signed Impressions: Service Date/Time: June 08:54 - CONCLUSION: Gallstone. Moderate extrahepatic biliary ductal dilatation End-stage right kidney Juan Sarkar MD Head CT 07/19/17 0000 Signed Impressions: Service Date/Time: Wednesday, July 19, 2017 17:39 - CONCLUSION: Normal examination. Juan Sarkar MD Physical Exam HEENT: Normocephalic; atraumatic, CHEST: CTA CARDIAC: irr HR + murmur ABDOMEN: Soft, nondistended, bowel sounds soft , significant RUQ TTP EXTREMITIES: No clubbing, cyanosis, or edema. SKIN: Normal; no rash; no jaundice. 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 End-stage right kidney - ESRD- hemodialysis M,W,F do tomorrow a.m. Labs ,total bilirubin 1. 3 MRCP showed common bile duct stone Hemoglobin 8. Which is a 1 g decrease in 24 hours 07/26/17 s/p ERCP unsuccessful. minimal change LFTs. pt denies abd pain. 07/27/2017 no significant changes, patient still seems to be comfortable, family would like to proceed with the PTC for stone retrieval, palliative team talked to his son and his and they would like us to proceed so I discussed the case with Dr. Shah and he will have PTC with possible stone extraction today 07/28/17 s/p PTC drain yesterday and today cholangioplaty and stone extraction by IR, report is pending. he is tender in RUQ PLAN - monitor LFTs - PARAG - GI will sign off. please reconsult if needed pt seen by myself and Dr Barr and this note is on his behalf (Paradise De La Fuente) Plan Patient was seen and examined, agree with above note, stone was removed today by Dr. Sarkar, drainage can be remove by radiology when they feel it is indicated, will sign off at this time (Beth Barr MD) [place] De La Fuente Jul 28, 2017 14:53 Beth Barr MD Jul 28, 2017 18:13
[2017-07-28] MEDS ORDERED: SODIUM CHLORID 0.9% 500 ML INJ 500 ML IV ONE (16:00)
[2017-07-28] MEDS: MORPHINE SULFATE 2 MG/ML INJ IV PUSH PRN ×2 (16:56→21:05)
--- NOTE | 2017-07-28 20:17 | HHI.NPPN ---
Subjective History of Present Illness 67 year old with ESRD, on Hemodialysis, admitted with seizures, he was intubated Additional Remarks more alert Objective Data Data 07/28/17 07/29/17 19:00 07:00 Intake Total 740 ml Output Total 270 ml Balance 470 ml Intake Oral 240 ml IV Total 500 ml Drainage Total 270 ml # Voids 2 # Bowel Movements 1 Vital Signs Date Time Temp Pulse Resp B/P (MAP) Pulse Ox O2 Delivery O2 Flow Rate FiO2 07/28/17 16:00 99.2 76 20 106/58 (74) 98 07/28/17 12:45 97.6 60 20 92/51 (65) 98 Room Air 07/28/17 12:30 60 20 90/57 (68) 100 07/28/17 12:15 60 17 94/51 (65) 100 07/28/17 12:00 97.7 63 20 93/51 (65) 98 07/28/17 12:00 59 24 111/57 (75) 100 07/28/17 11:45 59 22 83/45 (58) 100 07/28/17 11:39 97.6 59 20 82/40 (54) 100 Nasal Cannula 2 07/28/17 10:17 99 21 07/28/17 08:00 97.2 68 20 117/58 (77) 100 07/28/17 08:00 71 07/28/17 07:00 Room Air 07/28/17 04:00 98.1 69 18 100/68 (79) 99 07/28/17 00:00 Room Air 07/28/17 00:00 97.0 70 18 98/46 (63) 99 07/27/17 23:41 78 -: 07/26/17 0500 07/26/17 0500 Physical Exam General Appearance: Well Developed Pulmonary Resp Exam: Clear Bilaterally Cardiology CV Exam: Regular Gastrointestinal/Abdomen GI Exam: Soft, Non-Tender, Bowel Sounds Present Extremeties Extremities Exam: No Edema Assessment/Plan Problem List: (1) ESRD (end stage renal disease) on dialysis ICD Codes: N18.6 - End stage renal disease; Z99.2 - Dependence on renal dialysis Plan: ERCP could not be completed due to diverticulum bile duct drain placed re done stone extraction and drain change today was hypotensive fluid bolus given, order NS at 50cc/hr x 1 bag of 500 cc Dialysis postponed till tomorrow Status post LP MRI, EEG and CSF lab findings, 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 Prognosis is generally within a few months of symptom onset. neurology discussed with family, HD in am (2) Seizures ICD Codes: R56.9 - Unspecified convulsions Plan: Neurology following on Phenytoin Joshua Hernadez MD Jul 28, 2017 20:17
[2017-07-28] MEDS ORDERED: SODIUM CHLORID 0.9% 500 ML INJ 500 ML IV SCH (20:30)
[2017-07-28] MEDS: ATORVASTATIN 80 MG TAB PO SCH (21:14)
[2017-07-29] VITALS (9 sets, daily range): BP systolic 83–121; BP diastolic 48–69; PULSE 71–87; RESP 16–20; TEMP 97.2–98.5; O2SAT 95–98
[2017-07-29] MEDS: ACETAMINOPHEN/HYDROcodone 325 MG/5 MG TAB PO PRN ×3 (00:49→17:21)
[2017-07-29] MEDS: CHLORHEXIDINE GLUCONATE 2 % 1 PACK (2 CLOTHS) TOP SCH (04:00)
[2017-07-29] MEDS ORDERED: SODIUM CHLORID 0.9% 500 ML INJ 500 ML IV ONE (06:15)
[2017-07-29] MEDS: ISOSORBIDE MONONITRATE 60 MG CR TAB (IMDUR) PO SCH (06:45)
[2017-07-29] MEDS: LEVOTHYROXINE SODIUM 100 MCG TAB PO SCH (06:45)
[2017-07-29] MEDS: SEVELAMER CARBONATE 800 MG TAB PO SCH ×3 (08:00→17:21)
[2017-07-29] MEDS: INSULIN ASPART SUPPLEMENTAL SCALE SQ SCH ×3 (08:00→17:00)
[2017-07-29] MEDS: CHLORHEXIDINE 0.12% (ORAL KIT) 15 ML CUP MT SCH (08:00)
--- NOTE | 2017-07-29 09:37 | HHI.NPPN ---
Subjective History of Present Illness 67 year old with ESRD, on Hemodialysis, admitted with seizures, he was intubated Additional Remarks patient was seen during dialysis. He is comfortable. On 2K, UF is 2 liters. Tolerating it well. Objective Data Data Vital Signs Date Time Temp Pulse Resp B/P (MAP) Pulse Ox O2 Delivery O2 Flow Rate FiO2 07/29/17 07:54 75 07/29/17 06:49 98.5 71 20 97/50 (66) 96 07/29/17 04:00 98.0 76 20 87/48 (61) 97 07/29/17 03:48 71 07/29/17 00:52 97.8 73 16 84/51 (62) 98 07/29/17 00:00 Room Air 07/28/17 23:55 71 07/28/17 20:05 75 07/28/17 20:00 Room Air 07/28/17 20:00 98.9 84 16 97/52 (67) 98 07/28/17 16:00 99.2 76 20 106/58 (74) 98 07/28/17 12:45 97.6 60 20 92/51 (65) 98 Room Air 07/28/17 12:30 60 20 90/57 (68) 100 07/28/17 12:15 60 17 94/51 (65) 100 07/28/17 12:00 97.7 63 20 93/51 (65) 98 07/28/17 12:00 59 24 111/57 (75) 100 07/28/17 11:45 59 22 83/45 (58) 100 07/28/17 11:39 97.6 59 20 82/40 (54) 100 Nasal Cannula 2 07/28/17 10:17 99 21 -: 07/26/17 0500 07/26/17 0500 Physical Exam General Appearance: Well Developed Pulmonary Resp Exam: Clear Bilaterally Cardiology CV Exam: Regular Gastrointestinal/Abdomen GI Exam: Soft, Non-Tender, Bowel Sounds Present Extremeties Extremities Exam: No Edema Assessment/Plan Problem List: (1) ESRD (end stage renal disease) on dialysis ICD Codes: N18.6 - End stage renal disease; Z99.2 - Dependence on renal dialysis Plan: HD today as above. Monitor electrolytes. HD in am (2) Seizures ICD Codes: R56.9 - Unspecified convulsions Plan: Neurology following on Phenytoin ERCP could not be completed due to diverticulum bile duct drain placed re done stone extraction and drain change today was hypotensive fluid bolus given, order NS at 50cc/hr x 1 bag of 500 cc Dialysis postponed till tomorrow Status post LP MRI, EEG and CSF lab findings, 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 Prognosis is generally within a few months of symptom onset. neurology discussed with family, Adrian Claudio MD Jul 29, 2017 09:37
[2017-07-29] MEDS: GELATIN 12 MM/7 MM FOAM TOPICAL PRN (10:23)
[2017-07-29] MEDS ORDERED: FAMO20TA2 PO (12:12)
[2017-07-29] MEDS ORDERED: ALPR.25 PO (12:12)
[2017-07-29] MEDS: DOCUSATE SODIUM 50 MG/SENNA 8.6 MG TAB PO SCH (12:25)
[2017-07-29] MEDS: RANOLAZINE 500 MG EXTENDED RELEASE TAB PO SCH (12:25)
[2017-07-29] MEDS: ASPIRIN 81 MG CHEW TAB CHEW SCH (12:25)
[2017-07-29] MEDS: CARVEDILOL 12.5 MG TAB PO SCH (12:26)
[2017-07-29] MEDS: EZETIMIBE 10 MG TAB PO SCH (12:26)
[2017-07-29] MEDS: PHENYTOIN SODIUM 100 MG CAP PO SCH (12:26)
[2017-07-29] MEDS: FAMOTIDINE 20 MG TAB PO SCH (12:27)
[2017-07-29] MEDS: SODIUM CHLORIDE 0.9% FLUSH 10 ML FLUSH IV FLUSH SCH (12:27)
[2017-07-29] MEDS ORDERED: GETGO ROLLING W1 MI1 (14:47)
--- NOTE | 2017-07-29 14:47 | HHI.FF ---
Face to Face Verification Diagnosis: (1) ESRD (end stage renal disease) on dialysis (2) Hyperkalemia (3) Brief psychotic disorder (4) Hypertension (5) Biliary calculus with obstruction without cholecystitis (6) Alzheimer's disease with late onset (7) Creutzfeldt-Gary disease, unspecified (8) DEMENTIA IN OTH DISEASES CLASSD ELSWHR W BEHAVIORAL DISTURB (9) Confusion (10) Seizures (11) Agitation Physical Therapy Order: Evaluate and Treat Home Health Nursing Order: Medical education Signs/symptoms of disease process Medication education-adverse effect Nursing assessment with vital signs I have seen patient Cosme Wyatt on 07/29/17. My clinical findings support the need for the requested home health care services because: Ltd mobility - disease progression Patient has SOB Deconditioned w/ increased weakness Limited ability to care for self I certify that my clinical findings support that this patient is homebound because: Post-op weakness Unsteady gait/balance Audelia Solis MD Jul 29, 2017 14:47
--- NOTE | 2017-07-29 14:55 | HHI.PR ---
Subjective Remarks Seen after HD . In bad appears in nad. Pain is better controlled. NO n/v/d/c. Very pleasant. Objective Vitals Vital Signs Date Time Temp Pulse Resp B/P (MAP) Pulse Ox O2 Delivery O2 Flow Rate FiO2 07/29/17 12:00 97.2 85 20 121/69 (86) 98 07/29/17 08:00 Room Air 07/29/17 07:54 75 07/29/17 06:49 98.5 71 20 97/50 (66) 96 07/29/17 04:00 98.0 76 20 87/48 (61) 97 07/29/17 03:48 71 07/29/17 00:52 97.8 73 16 84/51 (62) 98 07/29/17 00:00 Room Air 07/28/17 23:55 71 07/28/17 20:05 75 07/28/17 20:00 Room Air 07/28/17 20:00 98.9 84 16 97/52 (67) 98 07/28/17 16:00 99.2 76 20 106/58 (74) 98 I/O 07/28/17 07/28/17 07/28/17 07/29/17 07/29/17 07/29/17 07:00 15:00 23:00 07:00 15:00 23:00 Intake Total 500 ml 240 ml 620 ml Output Total 410 ml 270 ml 250 ml 2000 ml Balance -410 ml 500 ml -30 ml 370 ml -2000 ml Intake Oral 240 ml 120 ml IV Total 500 ml 500 ml Output Urine Total 250 ml Drainage Total 410 ml 270 ml Hemodialysis 2000 ml # Voids 2 # Bowel Movements 1 Result Diagram: 07/26/17 0500 07/26/17 0500 Imaging Last Impressions Cholangiogram 07/28/17 0000 Signed Impressions: Service Date/Time: Friday, July 28, 2017 11:07 - CONCLUSION: Uncomplicated cholangioplasty with biliary stone removal. The existing drainage catheter can be capped for patient comfort purposes if clinically appropriate. Ideally, patient would return in 2-3 weeks as an outpatient for followup cholangiography and tube removal if indicated. Juan Sarkar MD Bile Duct Drainage 07/27/17 0000 Signed Impressions: Service Date/Time: July 14:53 - CONCLUSION: Uncomplicated fluoroscopic guided percutaneous biliary drainage as described in detail above. We have the patient scheduled to return tomorrow to undergo cholangioplasty with stone extraction under anesthesia. Juan Sarkar MD Abdomen X-Ray 07/25/17 0000 Signed Impressions: Service Date/Time: Tuesday, July 25, 2017 12:53 - CONCLUSION: Attempted ERCP as described above. Tiago Butcher MD Chest X-Ray 07/24/17 0600 Signed Impressions: Service Date/Time: Monday, July 24, 2017 03:51 - CONCLUSION: 1. Status post extubation with stable subtle patchy right lower lung zone airspace disease. Vik Colmenares MD Cholangiopancreatography MRI 07/21/17 0000 Signed Impressions: Service Date/Time: Friday, July 21, 2017 12:23 - CONCLUSION: 1. Tiny gallstones. 2. Dilated common bile duct and common hepatic duct with a solitary 5 mm filling defect in common bile duct. 3. Right pleural effusion and ascites right upper quadrant . Klaus Schneider MD Lumbar Puncture Fluoroscopy 07/20/17 0000 Signed Impressions: Service Date/Time: June 14:34 - CONCLUSION: Uncomplicated fluoroscopically guided lumbar puncture. Klaus Haley Jr., MD Gall Bladder Ultrasound 07/20/17 0000 Signed Impressions: Service Date/Time: June 08:54 - CONCLUSION: Gallstone. Moderate extrahepatic biliary ductal dilatation End-stage right kidney Juan Sarkar MD Head CT 07/19/17 0000 Signed Impressions: Service Date/Time: Wednesday, July 19, 2017 17:39 - CONCLUSION: Normal examination. Juan Sarkar MD Objective Remarks GENERAL: Pleasant 67 yo male, more awake and alert, appears in NAD, A&Ox3 CARDIOVASCULAR: Regular rate and rhythm without murmurs, gallops, or rubs. RESPIRATORY: Breath sounds equal bilaterally. No accessory muscle use. GASTROINTESTINAL: Abdomen soft, non-tender, nondistended. MUSCULOSKELETAL: No cyanosis, or edema. SKIN: Warm and dry. NEURO: No focal neurological deficits. Procedures intubation/extubation cholecystectomy tube placed by IR 07/27/17 cholangioplasty with stone extraction under anesthesia 07/28/17 by IR A/P Problem List: (1) Seizures ICD Code: R56.9 - Unspecified convulsions (2) ESRD (end stage renal disease) on dialysis ICD Code: N18.6 - End stage renal disease; Z99.2 - Dependence on renal dialysis (3) DEMENTIA IN OTH DISEASES CLASSD ELSWHR W BEHAVIORAL DISTURB ICD Code: F02.81 - DEMENTIA IN OTH DISEASES CLASSD ELSWHR W BEHAVIORAL DISTURB (4) Hyperkalemia ICD Code: E87.5 - Hyperkalemia (5) Brief psychotic disorder ICD Code: F23 - Brief psychotic disorder Status: Acute (6) Hypertension ICD Code: I10 - Essential (primary) hypertension (7) Alzheimer's disease with late onset ICD Code: G30.1 - Alzheimer's disease with late onset; F02.80 - Dementia in other diseases classified elsewhere without behavioral disturbance Assessment and Plan 67 year old male admitted secondary to seizure, intubated at time of admission due to respiratory failure. 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 His family also relate brief jerking activity of limbs suggestive of myoclonus which is also characteristic. Discussed with neurology Dr. Salas appreciate recommendations Consult palliative care, expectant fast deterioration Psychiatry following will, today Continue supportive care Monitor for improvement Seventh rib fracture Supportive care Pain treatments as needed Acute hypoxemic respiratory failure Improved Patient extubated 07/22/17 Oxygen as needed Duo neb treatments as needed Moderate Cardiovascular disease Continue statin Continue Ranexa Continue aspirin [place] resumed Coreg resumed History of hypertension Hypotension [place] resumed Coreg resumed Follow blood pressures ESRD Nephrology following Follow renal function Dialysis on an as-needed basis Cholelithiasis Nonobstructing choledocholithiasis Status post ERCP GI following IR consulted s/p cholangioplasty with stone extraction under anesthesia 07/28/17 Hyperlipidemia Continue Sevelamer 800 mg TID Continue Zetia 10mg/d Hypothyroidism Continue levothyroxine 100 mg/day DVT Prophylaxis SCDs Discussed with the patient, nurse Psychiatry evaluation pending Physical therapy recommends placement. Case management consult discharge planning. Discharge plan. Consult palliative care for goals of care. Expect fast deterioration, patient with CJD Family /patient doesnt want snf and wuld like home with [facility] . Needs a walker also they work on having hopice later at home Patient with SHENA drain , discharge when cleared by IR, ff for SHENA drain Audelia Solis MD Jul 29, 2017 14:54
[2017-07-29] MEDS ORDERED: DILA100C PO (14:57)
[2017-07-29] MEDS ORDERED: NORC5TAB PO (17:58)
== END 2017-07-29 19:31 | disposition home health service (06) | DRG 100 ==
LOC: HIME 15:48 → N04B 07-25 13:34 → N04A 07-25 13:38
PROVIDERS: ADMIT Anesthesiology; ATTEND Hospitalist
PROC: 0BH17EZ Insertion of Endotracheal Airway into Trachea, Via Natural or Artificial Opening (ICD-10-PCS; 2017-07-19)
PROC: 5A1945Z Respiratory Ventilation, 24-96 Consecutive Hours (ICD-10-PCS; 2017-07-19)
PROC: 009U3ZX Drainage of Spinal Canal, Percutaneous Approach, Diagnostic (ICD-10-PCS; principal; 2017-07-20)
PROC: 5A1D70Z Performance of Urinary Filtration, Intermittent, Less than 6 Hours Per Day (ICD-10-PCS; 2017-07-21)
PROC: 0FJB8ZZ Inspection of Hepatobiliary Duct, Via Natural or Artificial Opening Endoscopic (ICD-10-PCS; 2017-07-25)
PROC: 0F9930Z Drainage of Common Bile Duct with Drainage Device, Percutaneous Approach (ICD-10-PCS; 2017-07-27)
PROC: 0F793DZ Dilation of Common Bile Duct with Intraluminal Device, Percutaneous Approach (ICD-10-PCS; 2017-07-27)
PROC: BF101ZZ Fluoroscopy of Bile Ducts using Low Osmolar Contrast (ICD-10-PCS; 2017-07-27)
PROC: 0FC98ZZ Extirpation of Matter from Common Bile Duct, Via Natural or Artificial Opening Endoscopic (ICD-10-PCS; 2017-07-28)
PROC: 0F2BX0Z Change Drainage Device in Hepatobiliary Duct, External Approach (ICD-10-PCS; 2017-07-28)
DX: G40.89 Other seizures (principal); J96.01 Acute respiratory failure with hypoxia; A81.00 Creutzfeldt-Jakob disease, unspecified; I95.9 Hypotension, unspecified; N18.6 End stage renal disease; I12.0 Hypertensive chronic kidney disease with stage 5 chronic kidney disease or end stage renal disease; K80.71 Calculus of gallbladder and bile duct without cholecystitis with obstruction; F02.80 Dementia in other diseases classified elsewhere, unspecified severity, without behavioral disturbance, psychotic disturbance, mood disturbance, and anxiety; S22.31XA Fracture of one rib, right side, initial encounter for closed fracture; I35.0 Nonrheumatic aortic (valve) stenosis; E03.9 Hypothyroidism, unspecified; E78.5 Hyperlipidemia, unspecified; Z99.2 Dependence on renal dialysis; X58.XXXA Exposure to other specified factors, initial encounter
CPT/HCPCS: 31500; 36600; 47534; 47536; 47542; 47544; 70450; 71045; 74018; 74181; 76000; 76377; 76705; 80048; 80053; 80076; 80185; 82140; 82533; 82550; 82552; 82805; 82945; 82948; 83735; 83880; 84100; 84157; 84439; 84443; 84481; 85025; 85610; 85730; 86403; 86592; 86703; 87015; 87040; 87070; 87102; 87116; 87205; 87206; 87476; 87529; 87641; 89051; 90935; 93005; 93306; 94002; 94003; 94150; 94640; 96374; 99152; 99153; C1725; C1729; C1757; C1769; C1887; C1894; J0133; J0171; J0696; J1100; J1815; J1956; J2060; J2250; J2270; J2370; J3010; J7030; J7040; J7060; P9045; Q2009; Q4081; Q9967